=== PATIENT | female | born 1965 | race Caucasian/White ===

== ENCOUNTER 2016-09-19 09:34 | Inpatient (IN) | payer SELFPAY ==
[2016-09-19] VITALS (7 sets, daily range): BP systolic 100–126; BP diastolic 58–81; PULSE 71–89; RESP 14–18; TEMP 96.9–98.3; O2SAT 97–100
[~2016-09-19] VITALS: Ht 170.2 cm; Wt 60.0 kg
[~2016-09-19 09:34] MED LIST: FURO20TA PO; NAPR500 PO; PANT40TA3 PO
--- NOTE | 2016-09-19 11:35 | PD ---
HPI Chief Complaint: Edema Time Seen by Provider: 11:28 Travel History International Travel<30 days: No Contact w/Intl Traveler<30days: No Traveled to known affect area: No History of Present Illness HPI This is a 51-year-old female with a history of alcoholic cirrhosis per chart review. She presents for evaluation of bilateral lower extremity swelling and pain. She reports over the past 2-3 which she has had increased swelling in the lower legs, some blister formation and drainage of serous fluid. Associated tenderness, stabbing, worse with palpation. She has also noticed some mildly increased abdominal swelling over the past few months. She has had ascites in the past. She is currently on Lasix 40 mg once a day, spironolactone 100 mg once a day. She has had no fevers or chills, nausea or vomiting, diarrhea or constipation. She also notes that one week ago she fell in her bathroom and landed on her ribs. She notes left-sided lower rib cage pain which is worse with palpation. Her ecommerce project manager is Dr. Pagan. She does not currently have a primary care physician. No other complaints. [facility]LY [facility] Past Medical History Asthma: Yes Cardiovascular Problems: No Diminished Hearing: No Genitourinary: No Musculoskeletal: Yes (TRAUMA-OCTOBER 2015, RIGHT LEG/HAND NERVE DAMAGE) Neurologic: No Respiratory: Yes Immunizations Current: Yes Past Surgical History Gynecologic Surgery: Yes (Hysterectomy-2002) Hysterectomy: Yes (2003) Other Surgery: Yes (BACK SURGERY ) Social History Alcohol Use: Yes (2-3 BEERS PER DAY ) Tobacco Use: Yes (1PPD) Substance Use: No Allergies-Medications (Allergen,Severity, Reaction): Coded Allergies: Voltaren (Unverified Adverse Reaction, Severe, headache, 09/19/16) Reported Meds & Prescriptions Reported Meds & Active Scripts Active Reported Spironolactone 50 Mg Tab 100 Mg PO DAILY Folate (Folic Acid) 1 Mg Tab 1 Mg PO DAILY Baclofen 20 Mg Tab 20 Mg PO TID Trazodone (Trazodone HCl) 50 Mg Tab 25 Mg PO HS Furosemide 40 Mg Tab 40 Mg PO DAILY Pantoprazole (Pantoprazole Sodium) 40 Mg Tab 40 Mg PO DAILY Review of Systems Except as stated in HPI: all other systems reviewed are Neg Physical Exam Narrative GENERAL: Well-developed well-nourished female in no acute distress SKIN: Warm and dry. Chronic venous stasis changes noted to the lower extremities, some serous fluid drainage noted from some blister formation. Mild erythema to the left pretibial region. 2+ pitting edema bilaterally. HEAD: Atraumatic. Normocephalic. EYES: Pupils equal and round. No scleral icterus. No injection or drainage. ENT: No nasal bleeding or discharge. Mucous membranes pink and moist. NECK: Trachea midline. No JVD. CARDIOVASCULAR: Regular rate and rhythm. No murmur appreciated. RESPIRATORY: No accessory muscle use. Clear to auscultation. Breath sounds equal bilaterally. GASTROINTESTINAL: Abdomen soft, non-tender, nondistended. Hepatic and splenic margins not palpable. MUSCULOSKELETAL: No obvious deformities. Skin as noted above. Some tenderness to palpation to the anterior lower left rib cage. NEUROLOGICAL: Awake and alert. No obvious cranial nerve deficits. Motor grossly within normal limits. Normal speech. Data Data Last Documented VS Vital Signs Date Time Temp Pulse Resp B/P Pulse Ox O2 Delivery O2 Flow Rate FiO2 09/19/16 14:53 97.8 83 16 106/58 100 Room Air Orders Complete Blood Count With Diff (09/19/16 10:06) Comprehensive Metabolic Panel (09/19/16 10:06) Chest, Single Ap (09/19/16 ) Tramadol (Ultram) (09/19/16 12:00) Prothrombin Time / Inr (Pt) (09/19/16 12:25) Act Partial Throm Time (Ptt) (09/19/16 12:25) Type And Screen (09/19/16 12:25) Red Blood Cells (Rbc) (09/19/16 12:25) Blood Product Administration .UPON TRANSFUSION (09/19/16 12:25) Ct Abd/Pel W Iv Contrast(Rout) (09/19/16 12:34) Hydromorphone Pf Inj (Dilaudid Pf Inj) (09/19/16 12:45) Pantoprazole Inj (Protonix Inj) (09/19/16 12:45) Iohexol 350 Inj (Omnipaque 350 Inj) (09/19/16 13:54) Labs Laboratory Tests Test 09/19/16 09/19/16 11:50 12:35 White Blood Count 7.4 TH/MM3 Red Blood Count 3.83 MIL/MM3 Hemoglobin 6.3 GM/DL Hematocrit 22.7 % Mean Corpuscular Volume 59.2 FL Mean Corpuscular Hemoglobin 16.5 PG Mean Corpuscular Hemoglobin 28.0 % Concent Red Cell Distribution Width 24.6 % Platelet Count 265 TH/MM3 Mean Platelet Volume 8.4 FL Neutrophils (%) (Auto) 65.4 % Lymphocytes (%) (Auto) 19.7 % Monocytes (%) (Auto) 11.4 % Eosinophils (%) (Auto) 2.0 % Basophils (%) (Auto) 1.5 % Neutrophils # (Auto) 4.9 TH/MM3 Lymphocytes # (Auto) 1.5 TH/MM3 Monocytes # (Auto) 0.8 TH/MM3 Eosinophils # (Auto) 0.1 TH/MM3 Basophils # (Auto) 0.1 TH/MM3 CBC Comment AUTO DIFF Differential Comment AUTO DIFF CONFIRMED Platelet Estimate NORMAL Platelet Morphology Comment ENLARGED Ovalocytes 1+ Acanthocytes OCC Keratocytes OCC Sodium Level 137 MEQ/L Potassium Level 4.0 MEQ/L Chloride Level 104 MEQ/L Carbon Dioxide Level 26.1 MEQ/L Anion Gap 7 MEQ/L Blood Urea Nitrogen 4 MG/DL Creatinine 0.48 MG/DL Estimat Glomerular Filtration 137 ML/MIN Rate Random Glucose 93 MG/DL Calcium Level 8.2 MG/DL Total Bilirubin 0.5 MG/DL Aspartate Amino Transf 17 U/L (AST/SGOT) Alanine Aminotransferase 13 U/L (ALT/SGPT) Alkaline Phosphatase 128 U/L Total Protein 6.9 GM/DL Albumin 3.0 GM/DL Prothrombin Time 12.7 SEC Prothromb Time International 1.1 RATIO Ratio Activated Partial 24.0 SEC Thromboplast Time Blood Type O POSITIVE Antibody Screen NEGATIVE Crossmatch Leukocyte-Reduced Red Blood Cells Blood Bank Comment [facility] Medical Decision Making Medical Screen Exam Complete: Yes Emergency Medical Condition: Yes Medical Record Reviewed: Yes Interpretation(s) CBC hemoglobin 6.3 CMP albumin 3.0 otherwise unremarkable Differential Diagnosis Venous stasis dermatitis, cellulitis, dependent edema, ascites, DVT Narrative Course 51-year-old female presents primarily for examination of bilateral lower extremity pain, skin changes, blister formation with serous drainage. Patient lab work was sent, she also endorses some left lower rib cage pain from a mechanical fall 1 week ago. Chest x-ray was ordered and was negative. Surprisingly her hemoglobin is 6.3 with an MCV of 59, she denies any melena/ bright red blood per rectum/hematemesis/hematochezia. She denies any acute bleeding that she is aware of. Given the history of recent trauma, CT of the abdomen and pelvis is been ordered to assess for splenic laceration. It appears that she has had an endoscopy in December 2015 revealing ulcers. A rectal examination was performed and is Hemoccult positive. The patient will be given 2 units packed red blood cells. The patient will be admitted for further evaluation. HemaPrompt Point of Care Internal Pos. & Neg. Controls: Passed Diagnosis Primary Impression: GI bleed Qualified Code: K92.2 - Gastrointestinal hemorrhage, unspecified gastrointestinal hemorrhage type Additional Impression: Anemia Qualified Code: D64.9 - Anemia, unspecified type Admitting Information Admitting Physician Requests: Admit Yuri Carolina Sep 19, 2016 11:35
[2016-09-19] MEDS ORDERED: traMADol HCL 50 MG TAB PO ONE (12:00)
--- NOTE | 2016-09-19 12:11 | RADRPT ---
EXAM DATE/TIME: 09/19/2016 11:46 [facility] COMPARISON: CHEST SINGLE AP, January 31, 2016, 11:43. INDICATIONS : Patient fell this morning and hurt her left ribs when she fell. MEDICAL HISTORY : None. SURGICAL HISTORY : None. ENCOUNTER: Initial ACUITY: 1 day PAIN SCORE: 8/10 LOCATION: Left Ribs. FINDINGS: Single AP view of the chest. The lungs are clear. Cardiomediastinal silhouette within normal limits. No evidence of pleural effusion or pneumothorax. CONCLUSION: No acute cardiopulmonary disease identified. Alejandro Gonzalez MD on September 19, 2016 at 12:09 Board Certified Radiologist. This report was verified electronically.
[2016-09-19] MEDS ORDERED: TRAZ50TA12 PO (12:15)
[2016-09-19] MEDS ORDERED: BACL20TA PO (12:15)
[2016-09-19] MEDS ORDERED: FOLI1TAB4 PO (12:15)
[2016-09-19] MEDS ORDERED: FURO40TA PO (12:15)
[2016-09-19] MEDS ORDERED: SPIR50TA PO (12:15)
[2016-09-19 12:22] LABS: ALT (GPT) 13 U/L (10-53); ANION GAP 7 MEQ/L (5-15); AST (GOT) 17 U/L (15-37); BICARBONATE 26.1 MEQ/L (21.0-32.0); BLOOD UREA NITROGEN 4 MG/DL (7-18); CHLORIDE 104 MEQ/L (98-107); GLOMERULAR FILTRATION RATE 137 ML/MIN (>89); SODIUM (NA) 137 MEQ/L (136-145)
[2016-09-19 12:23] LABS: AUTOMATED NEUTROPHIL # 4.9 TH/MM3 (1.8-7.7); BASOPHIL # 0.1 TH/MM3 (0-0.2); BASOPHIL % 1.5 % (0.0-2.0); EOSINOPHIL # 0.1 TH/MM3 (0-0.4); HEMATOCRIT 22.7 % (35.0-46.0); LYMPH % 19.7 % (9.0-44.0); LYMPHOCYTE # 1.5 TH/MM3 (1.0-4.8); MEAN CELL VOLUME 59.2 FL (80.0-100.0); MEAN CORPUSCULAR HEMOGLOBIN 16.5 PG (27.0-34.0); MONO % 11.4 % (0.0-8.0); NEUT % 65.4 % (16.0-70.0); PLATELET COUNT 265 TH/MM3 (150-450); RED BLOOD COUNT 3.83 MIL/MM3 (4.00-5.30); RED CELL DISTRIBUTION WIDTH 24.6 % (11.6-17.2); WHITE BLOOD COUNT 7.4 TH/MM3 (4.0-11.0)
[2016-09-19 12:24] LABS: ALKALINE PHOSPHATASE 128 U/L (45-117); HEMO FLAGS AUTO DIFF; TOTAL BILIRUBIN ADULT 0.5 MG/DL (0.2-1.0)
--- NOTE | 2016-09-19 12:42 | PD ---
Data Data Last Documented VS Vital Signs Date Time Temp Pulse Resp B/P Pulse Ox O2 Delivery O2 Flow Rate FiO2 09/19/16 13:54 89 16 117/73 100 Room Air 09/19/16 09:35 98.2 Orders Complete Blood Count With Diff (09/19/16 10:06) Comprehensive Metabolic Panel (09/19/16 10:06) Chest, Single Ap (09/19/16 ) Tramadol (Ultram) (09/19/16 12:00) Prothrombin Time / Inr (Pt) (09/19/16 12:25) Act Partial Throm Time (Ptt) (09/19/16 12:25) Type And Screen (09/19/16 12:25) Red Blood Cells (Rbc) (09/19/16 12:25) Blood Product Administration .UPON TRANSFUSION (09/19/16 12:25) Ct Abd/Pel W Iv Contrast(Rout) (09/19/16 12:34) Hydromorphone Pf Inj (Dilaudid Pf Inj) (09/19/16 12:45) Pantoprazole Inj (Protonix Inj) (09/19/16 12:45) Iohexol 350 Inj (Omnipaque 350 Inj) (09/19/16 13:54) Labs Laboratory Tests Test 09/19/16 09/19/16 11:50 12:35 White Blood Count 7.4 TH/MM3 Red Blood Count 3.83 MIL/MM3 Hemoglobin 6.3 GM/DL Hematocrit 22.7 % Mean Corpuscular Volume 59.2 FL Mean Corpuscular Hemoglobin 16.5 PG Mean Corpuscular Hemoglobin 28.0 % Concent Red Cell Distribution Width 24.6 % Platelet Count 265 TH/MM3 Mean Platelet Volume 8.4 FL Neutrophils (%) (Auto) 65.4 % Lymphocytes (%) (Auto) 19.7 % Monocytes (%) (Auto) 11.4 % Eosinophils (%) (Auto) 2.0 % Basophils (%) (Auto) 1.5 % Neutrophils # (Auto) 4.9 TH/MM3 Lymphocytes # (Auto) 1.5 TH/MM3 Monocytes # (Auto) 0.8 TH/MM3 Eosinophils # (Auto) 0.1 TH/MM3 Basophils # (Auto) 0.1 TH/MM3 CBC Comment AUTO DIFF Differential Comment AUTO DIFF CONFIRMED Platelet Estimate NORMAL Platelet Morphology Comment ENLARGED Ovalocytes 1+ Acanthocytes OCC Keratocytes OCC Sodium Level 137 MEQ/L Potassium Level 4.0 MEQ/L Chloride Level 104 MEQ/L Carbon Dioxide Level 26.1 MEQ/L Anion Gap 7 MEQ/L Blood Urea Nitrogen 4 MG/DL Creatinine 0.48 MG/DL Estimat Glomerular Filtration 137 ML/MIN Rate Random Glucose 93 MG/DL Calcium Level 8.2 MG/DL Total Bilirubin 0.5 MG/DL Aspartate Amino Transf 17 U/L (AST/SGOT) Alanine Aminotransferase 13 U/L (ALT/SGPT) Alkaline Phosphatase 128 U/L Total Protein 6.9 GM/DL Albumin 3.0 GM/DL Prothrombin Time 12.7 SEC Prothromb Time International 1.1 RATIO Ratio Activated Partial 24.0 SEC Thromboplast Time Blood Type O POSITIVE Antibody Screen NEGATIVE Crossmatch Leukocyte-Reduced Red Blood Cells Blood Bank Comment MDM Medical Record Reviewed: Yes Supervised Visit with CHARISMA: Yes Differential Diagnosis I, Dr. Vanegas, have reviewed the advance practice practioner's documentation and am in agreement, met with the patient face to face, made the diagnosis, and the medical decision making was done by me. *My assessment and Findings: 51-year-old alcoholic female with history of cirrhosis here with complaint of bilateral lower extremity swelling, blister formation and fluid drainage. This is chronic, but increased over the course the last several months. She also notes some abdominal distention and slight pain over the left lower rib cage since falling and hitting the chest wall approximately 1.5 weeks ago. Patient states she takes Lasix and spironolactone and has been compliant with this. She does not have any pain in the abdomen on palpation. No ecchymosis. Bilateral lower extremities have chronic venous stasis type changes with mild cellulitic component on the left greater than the right. Differential includes chronic pain, cellulitis, less likely DVT. Rib fracture, ascites. Laboratory workup notable for hemoglobin of 6.3. Most recently in January of last year this was 13.2. Patient denies any recent history of GI bleeding, states she was hospitalized last December and per chart review had an EGD with ulcer. With patient's recent history of trauma to the abdomen for possible splenic laceration or retroperitoneal hematoma and therefore will obtain CT imaging to evaluate for same. Regardless patient will need blood transfusion and admission for further management. She was transfused with 2 units packed red blood cells. Guaiac was positive. CT scan was negative other than cirrhosis, caput [place]. Critical Care Narrative Aggregate critical care time was 35 minutes. Time to perform other separately billable procedures was not included in the critical care time. My time did not include minutes spent treating any other patients simultaneously or on activities that did not directly contribute to the patient's treatment. The services I provided to this patient were to treat and/or prevent clinically significant deterioration that could result in: Cardiopulmonary decompensation, hemorrhage, , disability I provided critical care services requiring my management, as noted below: Chart data review, documentation time, medication orders and management, vital sign assessments/reviewing monitor data, ordering and reviewing lab tests, ordering and interpreting/reviewing x-rays and diagnostic studies, care of the patient and discussion of the patient with the admitting physicians. Janice Vanegas MD Sep 19, 2016 12:42
[2016-09-19] MEDS ORDERED: PANTOPRAZOLE SODIUM 40 MG VIAL IVP ONE (12:45)
[2016-09-19] MEDS ORDERED: HYDROmorphone HCL PF 1 MG/ML VIAL IV PUSH ONE (12:45)
[2016-09-19 13:01] LABS: ACANTHOCYTES OCC (NORMAL); KERATOCYTES OCC (NORMAL); OVALOCYTES 1+ (NORMAL); PLATELET ESTIMATE SMEAR NORMAL (NORMAL); PLATELET MORPHOLOGY ENLARGED (NORMAL); SCAN/DIFF AUTO DIFF CONFIRMED
[2016-09-19 13:11] LABS: INTERNATIONAL NORMALIZED RATIO 1.1 RATIO; PROTHROMBIN TIME - PATIENT 12.7 SEC (9.8-11.6)
[2016-09-19] MEDS ORDERED: IOHEXOL 350 MG/ML 10 ML VIAL (for RAD DIAG) IV ONE (13:54)
--- NOTE | 2016-09-19 14:37 | RADRPT ---
EXAM DATE/TIME: 09/19/2016 13:32 [facility] COMPARISON: CT ABDOMEN & PELVIS W/O CONTRAST, January 12, 2016, 11:39. CT ABDOMEN & PELVIS W CONTRAST, November 25 6, 14:41. INDICATIONS : Left upper quadrant pain. Abdominal distention. IV CONTRAST: 75 cc Omnipaque 350 (iohexol) IV ORAL CONTRAST: No oral contrast ingested. RADIATION DOSE: 9.96 CTDIvol (mGy) MEDICAL HISTORY : None SURGICAL HISTORY : Hysterectomy. ENCOUNTER: Initial ACUITY: 1 week PAIN SCALE: 7/10 LOCATION: Left upper quadrant TECHNIQUE: Volumetric scanning of the abdomen and pelvis was performed. Using automated exposure control and ad justment of the mA and/or kV according to patient size, radiation dose was kept as low as reasonably achievable to obtain optimal diagnostic quality images. FINDINGS: LOWER LUNGS: The visualized lower lungs are clear. LIVER: The liver is heterogeneous without a focal mass. No ductal dilatation. Lobulation to the contour. Por nigel vein is patent. There is recannulization of the periumbilical vein. Small lymph nodes are seen al amish the ricardo hepatis. These are stable. The largest measures 1.4 x 1.0 cm. Small noncalcified gallst ones versus sludge layering within an otherwise normal-appearing gallbladder. SPLEEN: Normal size without lesion. PANCREAS: Within normal limits. KIDNEYS: Normal in size and shape. There is no mass, stone or hydronephrosis. ADRENAL GLANDS: Within normal limits. VASCULAR: There is no aortic aneurysm. BOWEL/MESENTERY: The stomach, small bowel, and colon demonstrate no acute abnormality. Chronic stranding of the fat ad jacent to the posterior margin of the colon felt to be scar formation. No acute inflammation. There is no free intraperitoneal air. A trace amount of ascitic fluid. ABDOMINAL WALL: Caput medusa seen surrounding the umbilicus. No hernia appreciated. RETROPERITONEUM: There is no lymphadenopathy. BLADDER: No wall thickening or mass. REPRODUCTIVE: Within normal limits. INGUINAL: There is no lymphadenopathy or hernia. MUSCULOSKELETAL: Within normal limits for patient age. CONCLUSION: 1. Cirrhosis. 2. Trace amount of ascites. 3. Small noncalcified gallstones versus sludge within an otherwise normal-appearing gallbladder. 4. Caput medusa. Brent Sheridan Jr., MD on September 19, 2016 at 14:26 Board Certified Radiologist. This report was verified electronically.
[2016-09-19] MEDS ORDERED: NALOXONE HCL 0.4 MG/ML AMP IV PRN (16:00)
[2016-09-19] MEDS ORDERED: traMADol HCL 50 MG TAB PO PRN (16:00)
[2016-09-19] MEDS ORDERED: SODIUM CHLORIDE 0.9% FLUSH 10 ML FLUSH IV FLUSH PRN (16:00)
[2016-09-19] MEDS ORDERED: PILL SPLITTER OTHER PRN (16:00)
[2016-09-19] MEDS ORDERED: ACETAMINOPHEN 325 MG TAB PO PRN (16:00)
[2016-09-19] MEDS ORDERED: ONDANSETRON HCL 4 MG/2 ML VIAL IV PRN (16:00)
--- NOTE | 2016-09-19 16:07 | HHI.HP ---
[facility] Service [facility] Primary Care Physician No Primary Care Physician Admission Diagnosis GI bleed, anemia Diagnoses: Chief Complaint: Lower extremity and abdominal pain Travel History International Travel<30 Days: No Contact w/Intl Traveler <30 Da: No Traveled to Known Affected Are: No History of Present Illness 51-year-old female with past mental history of alcoholic cirrhosis, insomnia, PUD, asthma who presented with lower extremity pain and abdominal discomfort. The patient's chief complaint today was pain in her bilateral lower extremities. She's been having painful dry skin for the past 2 or 3 weeks. She 's been trying to put lotion and Neosporin on it with no improvement. She states occasionally her legs weep and drain, not currently. She has been compliant with her GI medications including diuretics. Her guest relation officer is Dr. Pagan. She states she's been having some abdominal swelling, has had paracentesis in the past due to ascites. However, she has not noticed any dark or bloody stools. She denies any nausea, vomiting, chest pain, shortness breath , lightheadedness, dizziness, weakness, fatigue. She does continue to have an occasional alcoholic drink. The patient was noted to be anemic in the ED and found to have Hemoccult-positive stool. Review of Systems Except as stated in HPI: all other systems reviewed are Neg Past Family Social History Past Medical History Asthma Ascites/cirrhosis Insomnia Peptic ulcer disease and portal gastropathy Past Surgical History Back surgery Hysterectomy EGD Paracentesis Reported Medications Spironolactone 50 Mg Tab 100 Mg PO DAILY Folate (Folic Acid) 1 Mg Tab 1 Mg PO DAILY Baclofen 20 Mg Tab 20 Mg PO TID Trazodone (Trazodone HCl) 50 Mg Tab 25 Mg PO HS Furosemide 40 Mg Tab 40 Mg PO DAILY Pantoprazole (Pantoprazole Sodium) 40 Mg Tab 40 Mg PO DAILY Allergies: Coded Allergies: Voltaren (Unverified Adverse Reaction, Severe, headache, 09/19/16) Active Ordered Medications Spironolactone 50 Mg Tab 100 Mg PO DAILY Folate (Folic Acid) 1 Mg Tab 1 Mg PO DAILY Baclofen 20 Mg Tab 20 Mg PO TID Trazodone (Trazodone HCl) 50 Mg Tab 25 Mg PO HS Furosemide 40 Mg Tab 40 Mg PO DAILY Pantoprazole (Pantoprazole Sodium) 40 Mg Tab 40 Mg PO DAILY Family History Family history of heart disease Social History Smokes one pack per day Had a glass of wine last night, last drink was a few days ago prior to that Lives at home with her Physical Exam Vital Signs Vital Signs Date Time Temp Pulse Resp B/P Pulse Ox O2 Delivery O2 Flow Rate FiO2 09/19/16 15:03 97.8 82 16 104/59 100 Room Air 09/19/16 14:53 97.8 83 16 106/58 100 Room Air 09/19/16 14:42 97.6 84 16 100/60 99 Room Air 09/19/16 13:54 89 16 117/73 100 Room Air 09/19/16 11:50 Room Air 09/19/16 09:35 98.2 89 16 126/58 97 Physical Exam GENERAL: Well-developed well-nourished. In no acute distress. SKIN: Warm and dry. Bilateral lower extremities with venous stasis changes with dry cracked skin, left worse than right; not really any erythema, warmth, or drainage. HEENT: Normocephalic. Pupils equal and round. Mucous membranes pink and moist. CARDIOVASCULAR: Regular rate and rhythm. No murmur appreciated. RESPIRATORY: No accessory muscle use. Clear to auscultation. Breath sounds equal bilaterally. GASTROINTESTINAL: Abdomen soft, moderate epigastric TTP, mildly distended. Bowel sounds x4. MUSCULOSKELETAL: No obvious deformities. No clubbing or cyanosis. 2+ bilateral lower extremity pitting edema. NEUROLOGICAL: Awake and alert. No focal neurological deficits. Moves upper and lower extremities spontaneously. Normal speech. PSYCHIATRIC: Appropriate mood and affect; insight and judgment normal. Laboratory Laboratory Tests Test 09/19/16 09/19/16 11:50 12:35 White Blood Count 7.4 Red Blood Count 3.83 Hemoglobin 6.3 Hematocrit 22.7 Mean Corpuscular Volume 59.2 Mean Corpuscular Hemoglobin 16.5 Mean Corpuscular Hemoglobin 28.0 Concent Red Cell Distribution Width 24.6 Platelet Count 265 Mean Platelet Volume 8.4 Neutrophils (%) (Auto) 65.4 Lymphocytes (%) (Auto) 19.7 Monocytes (%) (Auto) 11.4 Eosinophils (%) (Auto) 2.0 Basophils (%) (Auto) 1.5 Neutrophils # (Auto) 4.9 Lymphocytes # (Auto) 1.5 Monocytes # (Auto) 0.8 Eosinophils # (Auto) 0.1 Basophils # (Auto) 0.1 CBC Comment AUTO DIFF Differential Comment AUTO DIFF CONFIRMED Platelet Estimate NORMAL Platelet Morphology Comment ENLARGED Ovalocytes 1+ Acanthocytes OCC Keratocytes OCC Sodium Level 137 Potassium Level 4.0 Chloride Level 104 Carbon Dioxide Level 26.1 Anion Gap 7 Blood Urea Nitrogen 4 Creatinine 0.48 Estimat Glomerular Filtration 137 Rate Random Glucose 93 Calcium Level 8.2 Total Bilirubin 0.5 Aspartate Amino Transf 17 (AST/SGOT) Alanine Aminotransferase 13 (ALT/SGPT) Alkaline Phosphatase 128 Total Protein 6.9 Albumin 3.0 Prothrombin Time 12.7 Prothromb Time International 1.1 Ratio Activated Partial 24.0 Thromboplast Time Blood Type O POSITIVE Antibody Screen NEGATIVE Crossmatch Leukocyte-Reduced Red Blood Cells Blood Bank Comment Result Diagram: 09/19/16 1150 09/19/16 1150 Imaging Last Impressions Abdomen/Pelvis CT 09/19/16 1234 Signed Impressions: Service Date/Time: Monday, September 19, 2016 13:32 - CONCLUSION: 1. Cirrhosis. 2. Trace amount of ascites. 3. Small noncalcified gallstones versus sludge within an otherwise normal-appearing gallbladder. 4. Caput medusa. Brent Sheridan Jr., MD Chest X-Ray 09/19/16 0000 Signed Impressions: Service Date/Time: Monday, September 19, 2016 11:46 - CONCLUSION: No acute cardiopulmonary disease identified. Alejandro Gonzalez MD Assessment and Plan Assessment and Plan 51-year-old female with past mental history of alcoholic cirrhosis, insomnia, PUD, asthma who presented with lower extremity pain and abdominal discomfort who was admitted for anemia and GI bleeding Acute microcytic blood loss anemia with suspected GI bleeding: Hemoglobin 6.3, previously 13.2 on 01/31/16. Hemoccult positive in the ED. Currently receiving blood transfusion in the ED. Patient does have a past history of PUD, portal gastropathy, cirrhosis. Monitor CBC/H&H. Consult gastroenterology. IV Protonix. IVF. Clear liquids. Abdominal pain: Suspect secondary to PUD as above. Abdominal CT showed cirrhosis, trace ascites, noncalcified gallstones vs sludge, caput medusa. Pain control with oral and intravenous narcotics as needed. Venous stasis with xerotic dermatitis: Lac-Hydrin cream. Consult guitar player. Tobacco abuse: Counseled on cessation. Nicotine patch. Alcoholic cirrhosis: Continue home folic acid. Thiamine. Counseled strongly on abstinence from alcohol. Continue Lasix and Aldactone. Other chronic medical conditions are stable at this time and will continue home medications as indicated. DVT prophylaxis: No SCDs at this time with Written by Satinder Grider, acting as scribe for Dr. Monroy on 09/19/16 at 16:06. All or portions of this note were transcribed by orville WHITAKER. I, Dr. Rina Monroy personally performed the history, physical exam, and medical decision making; and confirmed the accuracy of the information in the transcribed note. Authenticated by Dr. Rina Monroy on 09/19/16 at 16:06. Discussed Condition With Patient with at bedside Satinder Grider Sep 19, 2016 16:07 Rina Monroy MD Sep 19, 2016 17:09
[2016-09-19] MEDS: ACETAMINOPHEN/HYDROcodone 325 MG/7.5 MG TAB PO PRN ×2 (16:15→22:41)
[2016-09-19] MEDS: NICOTINE 7 MG/24 HR PATCH T-DERMAL SCH (17:09)
[2016-09-19] MEDS: THIAMINE INJ 100 MG in SODIUM CHLORIDE 0.9% INJ 100 ML IV SCH (18:30)
[2016-09-19] MEDS: BACLOFEN 20 MG TAB PO SCH (20:19)
[2016-09-19] MEDS: SODIUM CHLORIDE 0.9% FLUSH 10 ML FLUSH IV FLUSH SCH (20:52)
[2016-09-19] MEDS: PANTOPRAZOLE SODIUM 40 MG VIAL IV SCH (20:52)
[2016-09-19] MEDS: MORPHINE SULFATE 4 MG/ML INJ IV PRN (20:53)
[2016-09-19] MEDS: traZODone HCL 50 MG TAB PO SCH (22:41)
[2016-09-19] MEDS: LACTIC ACID (AMMONIUM LACTATE) 12% LOTION 225 GM BTL TOPICAL SCH (23:28)
[2016-09-19 23:47] LABS: HEMATOCRIT 27.1 % (35.0-46.0)
[2016-09-19 23:52] LABS: REVIEW FLAG FINAL
[2016-09-20] VITALS (7 sets, daily range): BP systolic 101–117; BP diastolic 63–82; PULSE 74–88; RESP 17–20; TEMP 95.8–97.7; O2SAT 96–100
[2016-09-20] MEDS: MORPHINE SULFATE 4 MG/ML INJ IV PRN ×6 (00:11→21:35)
[2016-09-20] MEDS: ACETAMINOPHEN/HYDROcodone 325 MG/7.5 MG TAB PO PRN ×5 (03:15→20:38)
[2016-09-20 06:37] LABS: HEMATOCRIT 27.4 % (35.0-46.0)
[2016-09-20 06:41] LABS: REVIEW FLAG FINAL
[2016-09-20 06:53] LABS: ALKALINE PHOSPHATASE 105 U/L (45-117); ALT (GPT) 9 U/L (10-53); ANION GAP 7 MEQ/L (5-15); AST (GOT) 13 U/L (15-37); BICARBONATE 24.8 MEQ/L (21.0-32.0); BLOOD UREA NITROGEN 4 MG/DL (7-18); CHLORIDE 110 MEQ/L (98-107); GLOMERULAR FILTRATION RATE 148 ML/MIN (>89); POTASSIUM 3.8 MEQ/L (3.5-5.1); SODIUM (NA) 142 MEQ/L (136-145); TOTAL BILIRUBIN ADULT 1.1 MG/DL (0.2-1.0)
[2016-09-20 07:01] LABS: AUTOMATED NEUTROPHIL # 2.8 TH/MM3 (1.8-7.7); BASOPHIL # 0.1 TH/MM3 (0-0.2); BASOPHIL % 2.2 % (0.0-2.0); EOSINOPHIL # 0.2 TH/MM3 (0-0.4); EOSINOPHIL % 4.1 % (0.0-4.0); HEMATOCRIT 27.1 % (35.0-46.0); LYMPHOCYTE # 1.7 TH/MM3 (1.0-4.8); MEAN CELL VOLUME 64.4 FL (80.0-100.0); MEAN CORPUSCULAR HEMOGLOBIN 19.4 PG (27.0-34.0); MEAN CORPUSCULAR HGB CONC 30.1 % (32.0-36.0); NEUT % 50.7 % (16.0-70.0); PLATELET COUNT 236 TH/MM3 (150-450); RED BLOOD COUNT 4.22 MIL/MM3 (4.00-5.30); WHITE BLOOD COUNT 5.5 TH/MM3 (4.0-11.0)
[2016-09-20 07:06] LABS: HEMO FLAGS AUTO DIFF
--- NOTE | 2016-09-20 07:40 | HHI.PR ---
Subjective Remarks Patient says she feels tired. No BM since yesterday. No vomiting. Nausea improved. Denies fevers or chills. No seizures/ tremors. Objective Vitals Vital Signs Date Time Temp Pulse Resp B/P Pulse Ox O2 Delivery O2 Flow Rate FiO2 09/20/16 04:00 97.7 81 18 101/63 98 09/20/16 00:00 97.6 88 17 112/72 96 09/19/16 20:20 96.9 83 18 118/81 100 09/19/16 20:06 98.3 71 14 107/65 100 Room Air 09/19/16 15:03 97.8 82 16 104/59 100 Room Air 09/19/16 14:53 97.8 83 16 106/58 100 Room Air 09/19/16 14:42 97.6 84 16 100/60 99 Room Air 09/19/16 13:54 89 16 117/73 100 Room Air 09/19/16 11:50 Room Air 09/19/16 09:35 98.2 89 16 126/58 97 I/O 09/19/16 09/19/16 09/19/16 09/20/16 09/20/16 09/20/16 07:00 15:00 23:00 07:00 15:00 23:00 Intake Total 250 ml 480 ml Balance 250 ml 480 ml Intake Oral 480 ml Packed Cells 250 ml # Voids 1 1 Result Diagram: 09/20/16 0503 09/20/16 0503 Imaging Last Impressions Abdomen/Pelvis CT 09/19/16 1234 Signed Impressions: Service Date/Time: Monday, September 19, 2016 13:32 - CONCLUSION: 1. Cirrhosis. 2. Trace amount of ascites. 3. Small noncalcified gallstones versus sludge within an otherwise normal-appearing gallbladder. 4. Caput medusa. Brent Sheridan Jr., MD Chest X-Ray 09/19/16 0000 Signed Impressions: Service Date/Time: Monday, September 19, 2016 11:46 - CONCLUSION: No acute cardiopulmonary disease identified. Alejandro Gonzalez MD Objective Remarks GENERAL: Pleasant 51 yo F, well-developed, well-nourished. In no acute distress. SKIN: Warm and dry. Bilateral lower extremities with venous stasis changes with dry cracked skin, left worse than right; not really any erythema, warmth, or drainage. HEENT: Normocephalic. Pupils equal and round. Mucous membranes pink and moist. CARDIOVASCULAR: Regular rate and rhythm. No murmur appreciated. RESPIRATORY: No accessory muscle use. Clear to auscultation. Breath sounds equal bilaterally. GASTROINTESTINAL: Abdomen soft, moderate epigastric TTP, mildly distended. Bowel sounds x4. MUSCULOSKELETAL: No obvious deformities. No clubbing or cyanosis. 2+ bilateral lower extremity pitting edema. NEUROLOGICAL: Awake and alert. No focal neurological deficits. Moves upper and lower extremities spontaneously. Normal speech. PSYCHIATRIC: Appropriate mood and affect; insight and judgment normal. A/P Assessment and Plan 51-year-old female with past mental history of alcoholic cirrhosis, insomnia, PUD, asthma who presented with lower extremity pain and abdominal discomfort who was admitted for anemia and GI bleeding Acute microcytic blood loss anemia 2/2 GI bleeding (FOBT +): Hemoglobin 6.3, previously 13.2 on 01/31/16. Hemoccult positive in the ED. Currently receiving blood transfusion in the ED. Patient does have a past history of PUD, portal gastropathy, cirrhosis. Monitor CBC/H&H. Consult gastroenterology. IV Protonix. IVF. NPO plan for EGD 09/20/16 Abdominal pain: Suspect secondary to PUD as above. Abdominal CT showed cirrhosis, trace ascites, noncalcified gallstones vs sludge, caput medusa. Pain control with oral and intravenous narcotics as needed. Venous stasis with xerotic dermatitis: Lac-Hydrin cream. Consult physician obstetrician. Tobacco abuse: Counseled on cessation. Nicotine patch. Alcoholic cirrhosis: Continue home folic acid. Thiamine. Counseled strongly on abstinence from alcohol. Continue Lasix and Aldactone. Other chronic medical conditions are stable at this time and will continue home medications as indicated. DVT prophylaxis: No SCDs at this time with Discussed Condition With Patient, nurse Rina Monroy MD Sep 20, 2016 07:40
[2016-09-20 07:49] LABS: OVALOCYTES 1+ (NORMAL)
[2016-09-20 07:50] LABS: SCAN/DIFF AUTO DIFF CONFIRMED
[2016-09-20] MEDS: FUROSEMIDE 40 MG TAB PO SCH (08:00)
[2016-09-20] MEDS: BACLOFEN 20 MG TAB PO SCH ×3 (08:00→17:43)
[2016-09-20] MEDS: FOLIC ACID 1 MG TAB PO SCH (08:00)
[2016-09-20] MEDS: SODIUM CHLORIDE 0.9% FLUSH 10 ML FLUSH IV FLUSH SCH ×2 (08:01→20:38)
[2016-09-20] MEDS: PANTOPRAZOLE SODIUM 40 MG VIAL IV SCH ×2 (08:01→20:37)
[2016-09-20] MEDS: LACTIC ACID (AMMONIUM LACTATE) 12% LOTION 225 GM BTL TOPICAL SCH ×2 (08:04→20:39)
[2016-09-20] MEDS: NICOTINE 7 MG/24 HR PATCH T-DERMAL SCH (08:05)
--- NOTE | 2016-09-20 08:23 | PD.CONS ---
HPI History of Present Illness This is a 51 year old female with a history of alcoholic cirrhosis of the liver , ascites, esophageal stricture, esophagitis, peptic ulcer disease, portal hypertension. She came to the emergency room for evaluation of bilateral lower extremity swelling and discomfort. She reports for the past 3 weeks she's been having some mild swelling in her abdomen with a dull ache across her lower abdomen. This is intermittent and is not related to food intake. It is aggravated by moving and sometimes radiates around to her back. For the past week, she has had bilateral lower extremity swelling with blisters and clear drainage from the blisters once they rupture. She reports that these have been aching and she couldn't take it anymore and therefore came to the ER for further evaluation. She denies any heartburn, reflux, nausea, vomiting. She is not having any melena or hematochezia. She came to the ER and was noted to have severe anemia with 6.3/22.7. Her last EGD (01/01/16) with severe esophagitis , distal esophageal stricture and there was a small tear at this at this stricture from dilating it with the scope, gastropathy throughout the stomach, midsize ulcer in the antrum, duodenitis. Pathology with antral mucosa with reactive gastropathy, as may be seen with bile reflux or drug therapy, and regenerative epithelial changes. She has never had a colonoscopy. (Eunice Mccormick) PFSH Past Medical History Asthma Ascites Liver cirrhosis secondary to ETOH Esophageal stricture Insomnia Peptic ulcer disease Portal gastropathy Past Surgical History Back surgery Hysterectomy EGD Paracentesis (Eunice Mccormick) Coded Allergies: Voltaren (Unverified Adverse Reaction, Severe, headache, 09/19/16) Medications Allergies Coded Allergies Type Severity Reaction Last Updated Verified Voltaren Adverse Reaction Severe headache 09/19/16 No Active Scripts Medications Dose Route/Sig Days Date Category Spironolactone 50 Mg Tab 100 Mg PO DAILY 09/19/16 Reported Folate (Folic Acid) 1 Mg Tab 1 Mg PO DAILY 09/19/16 Reported Baclofen 20 Mg Tab 20 Mg PO TID 09/19/16 Reported Trazodone (Trazodone HCl) 50 Mg Tab 25 Mg PO HS 09/19/16 Reported Furosemide 40 Mg Tab 40 Mg PO DAILY 09/19/16 Reported Pantoprazole (Pantoprazole Sodium) 40 Mg Tab 40 Mg PO DAILY 05/24/16 Reported Family History Family history of heart disease Social History Smokes one pack per day Had a glass of wine last night, last drink was a few days ago prior to that ( Eunice Mccormick) Review of Systems Constitutional: COMPLAINS OF: Fatigue, DENIES: Fever, Chills Respiratory: DENIES: Cough Cardiovascular: COMPLAINS OF: Lower Extremity Edema (blisters to ble), DENIES : Chest pain Gastrointestinal: COMPLAINS OF: Abdominal pain, Swelling of Abdomen, DENIES: Black stools, Bloody stools, Constipation, Diarrhea, Nausea, Vomiting Musculoskeletal: COMPLAINS OF: Back pain Neurologic: DENIES: Headache Psychiatric: DENIES: Confusion (Eunice Mccormick) GI Exam Vitals I&O Vital Signs Date Time Temp Pulse Resp B/P Pulse Ox O2 Delivery O2 Flow Rate FiO2 09/20/16 04:00 97.7 81 18 101/63 98 09/20/16 00:00 97.6 88 17 112/72 96 09/19/16 20:20 96.9 83 18 118/81 100 09/19/16 20:06 98.3 71 14 107/65 100 Room Air 09/19/16 15:03 97.8 82 16 104/59 100 Room Air 09/19/16 14:53 97.8 83 16 106/58 100 Room Air 09/19/16 14:42 97.6 84 16 100/60 99 Room Air 09/19/16 13:54 89 16 117/73 100 Room Air 09/19/16 11:50 Room Air 09/19/16 09:35 98.2 89 16 126/58 97 I/O 09/19/16 09/19/16 09/19/16 09/20/16 09/20/16 09/20/16 07:00 15:00 23:00 07:00 15:00 23:00 Intake Total 250 ml 480 ml Balance 250 ml 480 ml Intake Oral 480 ml Packed Cells 250 ml # Voids 1 1 Imaging Last Impressions Abdomen/Pelvis CT 09/19/16 1234 Signed Impressions: Service Date/Time: Monday, September 19, 2016 13:32 - CONCLUSION: 1. Cirrhosis. 2. Trace amount of ascites. 3. Small noncalcified gallstones versus sludge within an otherwise normal-appearing gallbladder. 4. Caput medusa. Brent Sheridan Jr., MD Chest X-Ray 09/19/16 0000 Signed Impressions: Service Date/Time: Monday, September 19, 2016 11:46 - CONCLUSION: No acute cardiopulmonary disease identified. Alejandro Gonzalez MD Laboratory Test 09/19/16 09/19/16 09/19/16 09/20/16 11:50 12:35 23:37 05:03 White Blood Count 7.4 TH/MM3 5.5 TH/MM3 Red Blood Count 3.83 MIL/MM3 4.22 MIL/MM3 Hemoglobin 6.3 GM/DL 8.2 GM/DL 8.1 GM/DL Hematocrit 22.7 % 27.1 % 27.4 % Mean Corpuscular Volume 59.2 FL 64.4 FL Mean Corpuscular Hemoglobin 16.5 PG 19.4 PG Mean Corpuscular Hemoglobin 28.0 % 30.1 % Concent Red Cell Distribution Width 24.6 % 29.0 % Platelet Count 265 TH/MM3 236 TH/MM3 Mean Platelet Volume 8.4 FL 8.7 FL Neutrophils (%) (Auto) 65.4 % 50.7 % Lymphocytes (%) (Auto) 19.7 % 30.0 % Monocytes (%) (Auto) 11.4 % 13.0 % Eosinophils (%) (Auto) 2.0 % 4.1 % Basophils (%) (Auto) 1.5 % 2.2 % Neutrophils # (Auto) 4.9 TH/MM3 2.8 TH/MM3 Lymphocytes # (Auto) 1.5 TH/MM3 1.7 TH/MM3 Monocytes # (Auto) 0.8 TH/MM3 0.7 TH/MM3 Eosinophils # (Auto) 0.1 TH/MM3 0.2 TH/MM3 Basophils # (Auto) 0.1 TH/MM3 0.1 TH/MM3 CBC Comment AUTO DIFF AUTO DIFF Differential Comment AUTO DIFF AUTO DIFF CONFIRMED CONFIRMED Platelet Estimate NORMAL Platelet Morphology Comment ENLARGED Ovalocytes 1+ 1+ Acanthocytes OCC Keratocytes OCC Sodium Level 137 MEQ/L 142 MEQ/L Potassium Level 4.0 MEQ/L 3.8 MEQ/L Chloride Level 104 MEQ/L 110 MEQ/L Carbon Dioxide Level 26.1 MEQ/L 24.8 MEQ/L Anion Gap 7 MEQ/L 7 MEQ/L Blood Urea Nitrogen 4 MG/DL 4 MG/DL Creatinine 0.48 MG/DL 0.45 MG/DL Estimat Glomerular Filtration 137 ML/MIN 148 ML/MIN Rate Random Glucose 93 MG/DL 90 MG/DL Calcium Level 8.2 MG/DL 8.2 MG/DL Total Bilirubin 0.5 MG/DL 1.1 MG/DL Aspartate Amino Transf 17 U/L 13 U/L (AST/SGOT) Alanine Aminotransferase 13 U/L 9 U/L (ALT/SGPT) Alkaline Phosphatase 128 U/L 105 U/L Total Protein 6.9 GM/DL 6.0 GM/DL Albumin 3.0 GM/DL 2.5 GM/DL Prothrombin Time 12.7 SEC Prothromb Time International 1.1 RATIO Ratio Activated Partial 24.0 SEC Thromboplast Time Blood Type O POSITIVE Antibody Screen NEGATIVE Crossmatch Leukocyte-Reduced Red Blood Cells Blood Bank Comment Polychromasia 2.0 % Physical Examination HEENT: Normocephalic; atraumatic; no jaundice. CHEST: CTA. CARDIAC: Regular rate and rhythm with no murmur gallop or rubs. ABDOMEN: Soft, nondistended, nontender; hepatosplenomegaly; bowel sounds are present in all four quadrants. mild ascites EXTREMITIES: BLE edema. Multiple blisters to BLE SKIN: Normal; no rash; no jaundice. COMMISSIONING AGENT: No focal deficits; alert and oriented times three. (Eunice Mccormick) Assessment and Plan Plan ASSESSMENT: - Severe anemia. Pt has known liver cirrhosis, portal hypertension, PUD. However, she is not having any obvious active bleeding- denies any hematemesis, melena, vomiting. EGD (01/01/16) with severe esophagitis, distal esophageal stricture and there was a small tear at this at this stricture from dilating it with the scope, gastropathy throughout the stomach, midsize ulcer in the antrum, duodenitis. Pathology with antral mucosa with reactive gastropathy, as may be seen with bile reflux or drug therapy, and regenerative epithelial changes. She has never had a colonoscopy. HH 6.3/22.7 on admission. S/P 2 units PRBC. 8.1/ 27.4. - Ascites, BLE. Lasix, Spironolactone. - Liver cirrhosis/Portal htn secondary to ETOH use. Abdomen/Pelvis CT (09/19/16) ----> 1. Cirrhosis. 2. Trace amount of ascites. 3. Small noncalcified gallstones versus sludge within an otherwise normal-appearing gallbladder. 4. Caput medusa. T. Bili 1.1, AST 13, ALT 9, ALk PHosph 105. - Hx PUD. PPI PLAN: - Plan for egd/colonoscopy in am - Obtain consents - Light breakfast today - Clear liquids starting at lunch - NPO after MN - Golytely prep - Cont. Lasix - Cont. Spironolactone - Cont. PPI - Monitor labs - Supportive care - Complete ETOH cessation - Pt seen and examined by Dr. Campos and myself and this note is written on his behalf (Eunice Mccormick) Physician Comments patient was seen and examined agree with above continue present supportive care monitor labs Plan for an EGD and a colonoscopy tomorrow (Jose Luis Campos MD) Eunice Mccormick Sep 20, 2016 08:23 Jose Luis Campos MD Sep 20, 2016 18:42
[2016-09-20] MEDS: REMOVE OLD PATCH T-DERMAL SCH (09:00)
[2016-09-20] MEDS: SPIRONOLACTONE 50 MG TAB PO SCH (09:35)
[2016-09-20] MEDS ORDERED: PEG (High)/E-LYTE SOLN 4000 ML BTL PO ONE (16:00)
[2016-09-20 16:12] LABS: HEMATOCRIT 27.4 % (35.0-46.0)
[2016-09-20 16:20] LABS: REVIEW FLAG FINAL
[2016-09-20] MEDS: THIAMINE INJ 100 MG in SODIUM CHLORIDE 0.9% INJ 100 ML IV SCH (17:43)
[2016-09-20] MEDS: traZODone HCL 50 MG TAB PO SCH (20:37)
[2016-09-20 21:02] LABS: MEAN CORPUSCULAR HGB CONC 29.2 % (32.0-36.0)
[2016-09-21] VITALS: BP 100/67; PULSE 73; RESP 18; TEMP 97.1; O2SAT 100
[2016-09-21 00:10] LABS: HEMATOCRIT 27.1 % (35.0-46.0)
[2016-09-21 00:16] LABS: REVIEW FLAG FINAL
[2016-09-21] MEDS: ACETAMINOPHEN/HYDROcodone 325 MG/7.5 MG TAB PO PRN ×3 (01:06→11:52)
[2016-09-21] MEDS: MORPHINE SULFATE 4 MG/ML INJ IV PRN ×3 (02:05→13:05)
[2016-09-21 04:00] VITALS: BP 139/80; PULSE 88; RESP 18; TEMP 97.1; O2SAT 98
[2016-09-21 07:16] LABS: AUTOMATED NEUTROPHIL # 2.5 TH/MM3 (1.8-7.7); BASOPHIL # 0.1 TH/MM3 (0-0.2); BASOPHIL % 1.7 % (0.0-2.0); EOSINOPHIL # 0.2 TH/MM3 (0-0.4); EOSINOPHIL % 4.5 % (0.0-4.0); HEMATOCRIT 27.4 % (35.0-46.0); LYMPH % 33.9 % (9.0-44.0); LYMPHOCYTE # 1.8 TH/MM3 (1.0-4.8); MEAN CORPUSCULAR HEMOGLOBIN 18.9 PG (27.0-34.0); MONO % 12.6 % (0.0-8.0); NEUT % 47.3 % (16.0-70.0); PLATELET COUNT 196 TH/MM3 (150-450); RED BLOOD COUNT 4.22 MIL/MM3 (4.00-5.30); RED CELL DISTRIBUTION WIDTH 29.7 % (11.6-17.2); WHITE BLOOD COUNT 5.4 TH/MM3 (4.0-11.0)
--- NOTE | 2016-09-21 07:19 | HHI.PR ---
Subjective Remarks Patient in bed, say she feels much better today. Tired. No sob, chest pain, n/v/ d/c. lightheadedness. No fever or chills./ Plan for EGD colonoscopy today Objective Vitals Vital Signs Date Time Temp Pulse Resp B/P Pulse Ox O2 Delivery O2 Flow Rate FiO2 09/21/16 00:00 97.1 73 18 100/67 100 09/20/16 20:00 97.1 74 18 108/68 100 09/20/16 15:50 96.2 77 20 109/71 100 09/20/16 11:50 95.8 75 20 117/82 100 09/20/16 11:09 100 21 09/20/16 07:50 96.3 75 20 107/72 98 I/O 09/20/16 09/20/16 09/20/16 09/21/16 09/21/16 09/21/16 07:00 15:00 23:00 07:00 15:00 23:00 Intake Total 480 ml 720 ml 400 ml Output Total 300 ml Balance 480 ml 420 ml 400 ml Intake Oral 480 ml 720 ml 400 ml Output Urine Total 300 ml # Voids 1 10 1 1 # Bowel Movements 0 2 1 Result Diagram: 09/20/16 2333 09/20/16 0503 Imaging Last Impressions Abdomen/Pelvis CT 09/19/16 1234 Signed Impressions: Service Date/Time: Monday, September 19, 2016 13:32 - CONCLUSION: 1. Cirrhosis. 2. Trace amount of ascites. 3. Small noncalcified gallstones versus sludge within an otherwise normal-appearing gallbladder. 4. Caput medusa. Brent Sheridan Jr., MD Chest X-Ray 09/19/16 0000 Signed Impressions: Service Date/Time: Monday, September 19, 2016 11:46 - CONCLUSION: No acute cardiopulmonary disease identified. Alejandro Gonzalez MD Objective Remarks GENERAL: Pleasant 51 yo F, well-developed, well-nourished. In no acute distress. SKIN: Warm and dry. Bilateral lower extremities with venous stasis changes with dry cracked skin, left worse than right; not really any erythema, warmth, or drainage. HEENT: Normocephalic. Pupils equal and round. Mucous membranes pink and moist. CARDIOVASCULAR: Regular rate and rhythm. No murmur appreciated. RESPIRATORY: No accessory muscle use. Clear to auscultation. Breath sounds equal bilaterally. GASTROINTESTINAL: Abdomen soft, moderate epigastric TTP, mildly distended. Bowel sounds x4. MUSCULOSKELETAL: No obvious deformities. No clubbing or cyanosis. 2+ bilateral lower extremity pitting edema. NEUROLOGICAL: Awake and alert. No focal neurological deficits. Moves upper and lower extremities spontaneously. Normal speech. PSYCHIATRIC: Appropriate mood and affect; insight and judgment normal. A/P Assessment and Plan 51-year-old female with past mental history of alcoholic cirrhosis, insomnia, PUD, asthma who presented with lower extremity pain and abdominal discomfort who was admitted for anemia and GI bleeding Acute microcytic blood loss anemia 2/2 GI bleeding (FOBT +): Hemoglobin 6.3, previously 13.2 on 01/31/16. Hemoccult positive in the ED. Currently receiving blood transfusion in the ED. Patient does have a past history of PUD, portal gastropathy, cirrhosis. Monitor CBC/H&H. Consult gastroenterology. IV Protonix. IVF. Plan for EGD/colonoscopy 09/21/16 Class C esophagitis Erythematous gastritis Quit EtOH use. PPI To elina cee as OP with GI specialist. EGD in 3 month Abdominal pain: Suspect secondary to PUD as above. Abdominal CT showed cirrhosis, trace ascites, noncalcified gallstones vs sludge, caput medusa. Pain control with oral and intravenous narcotics as needed. Venous stasis with xerotic dermatitis: Lac-Hydrin cream. Consult planner chief. Tobacco abuse: Counseled on cessation. Nicotine patch. Alcoholic cirrhosis: Continue home folic acid. Thiamine. Counseled strongly on abstinence from alcohol. Continue Lasix and Aldactone. Other chronic medical conditions are stable at this time and will continue home medications as indicated. DVT prophylaxis: No SCDs at this time with Discussed Condition With Patient, nurse Rina Monroy MD Sep 21, 2016 07:19
[2016-09-21 07:24] LABS: BICARBONATE 26.1 MEQ/L (21.0-32.0); MAGNESIUM 1.7 MG/DL (1.5-2.5); POTASSIUM 3.5 MEQ/L (3.5-5.1)
[2016-09-21 07:36] LABS: HEMO FLAGS AUTO DIFF
[2016-09-21 07:50] VITALS: BP 107/67; PULSE 85; RESP 20; TEMP 97.2; O2SAT 98
[2016-09-21] MEDS: BACLOFEN 20 MG TAB PO SCH ×2 (08:22→11:52)
[2016-09-21] MEDS: FOLIC ACID 1 MG TAB PO SCH (08:22)
[2016-09-21] MEDS: SPIRONOLACTONE 50 MG TAB PO SCH (08:22)
[2016-09-21] MEDS: NICOTINE 7 MG/24 HR PATCH T-DERMAL SCH (08:23)
[2016-09-21] MEDS: FUROSEMIDE 40 MG TAB PO SCH (08:23)
[2016-09-21] MEDS: REMOVE OLD PATCH T-DERMAL SCH (08:23)
[2016-09-21] MEDS: PANTOPRAZOLE SODIUM 40 MG VIAL IV SCH (08:24)
[2016-09-21] MEDS: SODIUM CHLORIDE 0.9% FLUSH 10 ML FLUSH IV FLUSH SCH (09:00)
[2016-09-21 09:15] LABS: OVALOCYTES 1+ (NORMAL)
[2016-09-21 09:19] LABS: SCAN/DIFF AUTO DIFF CONFIRMED
[2016-09-21 10:32] VITALS: BP 107/67; PULSE 85; RESP 20; TEMP 97.2; O2SAT 98
[2016-09-21] MEDS ORDERED: PROPOFOL 200 MG/20 ML AMP IV ONE (10:42)
--- NOTE | 2016-09-21 11:21 | GIPROC ---
[facility] [address] [facility]. [facility], [address] EGD PROCEDURE REPORT EXAM DATE: 09/21/2016 PATIENT NAME: Mila Meza MR #: [id number] BIRTHDATE: 1965 ATTENDING: Jose Luis Campos MD ORDER #: [id number] PRINCIPAL WEB DEVELOPER: Sudhakar Lucero and Adam Deluna STATUS: inpatient INDICATIONS: The patient is a 51 yr old female here for an EGD due to anemia PROCEDURE PERFORMED: EGD w/ biopsy MEDICATIONS: None and Per Anesthesia. TOPICAL ANESTHETIC: CONSENT: The patient understands the risks and benefits of the procedure and understands that these risks include, but are not limited to: sedation, allergic reaction, infection, perforation and/or bleeding. Alternative means of evaluation and treatment include, among others: physical exam, x-rays, and/or surgical intervention. The patient elects to proceed with this endoscopic procedure. medical equipment was checked for proper function. Hand hygiene and appropriate measures for infection prevention was taken. After the risks, benefits and alternatives of the procedure were thoroughly explained, Informed consent was verified, confirmed and timeout was successfully executed by the treatment team. The patient was anesthetized with topical anesthesia and the EC-[id number] (Pedi C) endoscope was introduced through the mouth and advanced to the second portion of the duodenum. Retroflexed views revealed no abnormalities The gastroscope was then slowly withdrawn and removed. ESOPHAGUS: There was LA Class C esophagitis noted. STOMACH: There was erythematous moderate gastritis in the gastric antrum. Multiple biopsies were performed. The endoscopy was otherwise normal. ADVERSE EVENTS: There were no complications. IMPRESSIONS: 1. There was LA Class C esophagitis noted 2. There was erythematous gastritis in the gastric antrum; multiple biopsies were performed 3. Normal endoscopy otherwise 4. Retroflexed views revealed no abnormalities RECOMMENDATIONS: 1. Await biopsy results. Biopsy results will not be ready for 7-10 days. If you don't hear from us in two weeks, call our office for biopsy results. 2. Start PPI 3. Anti-reflux regimen 4. Follow-up: GI clinic 4 week(s) PATIENT CONDITION: stable DISPOSITION: Inpatient REPEAT EXAM: Return 3 months EGD Jose Luis Campos MD eSigned: Jose Luis Campos MD 09/21/2016 11:21 AM cc:
--- NOTE | 2016-09-21 11:25 | GIPROC ---
[facility] [address] [facility]. [facility], [address] COLONOSCOPY PROCEDURE REPORT EXAM DATE: 09/21/2016 PATIENT NAME: Mila Meza MR #: [id number] BIRTHDATE: 1965 ENDOSCOPIST: Jose Luis Campos MD ORDER #: [id number] CLAIMS ASSISTANT: Sudhakar Lucero and Adam Deluna STATUS: inpatient INDICATIONS: The patient is a 51 yr old female here for a colonoscopy due to anemia, non-specific PROCEDURE PERFORMED: Colonoscopy with polypectomy MEDICATIONS: None and Per Anesthesia. PREP QUALITY: poor ESTIMATED BLOOD LOSS: None CONSENT: The patient understands the risks and benefits of the procedure and understands that these risks include, but are not limited to: sedation, allergic reaction, infection, perforation and/or bleeding. Alternative means of evaluation and treatment include, among others: physical exam, x-rays, and/or surgical intervention. The patient elects to proceed with this endoscopic procedure. medical equipment was checked for proper function. Hand hygiene and appropriate measures for infection prevention was taken. After the risks, benefits and alternatives of the procedure were thoroughly explained, Informed consent was verified, confirmed and timeout was successfully executed by the treatment team. A digital exam revealed no abnormalities of the rectum The Pentax EC-[id number] endoscope was introduced through the anus and advanced to the cecum, which was identified by both the appendix and ileocecal valve. The instrument was then slowly withdrawn as the colon was fully examined. COLON FINDINGS: A medium sized sessile polyp with a mucous cap was found in the ascending colon. Flat. A polypectomy was performed with a cold snare. The resection was complete and the polyp tissue was completely retrieved. Two large semi-pedunculated polyps were found in the sigmoid colon. Adenomatous. A polypectomy was performed using snare cautery. The resection was complete and the polyp tissue was completely retrieved. The colon mucosa was otherwise normal. Retroflexed views revealed no abnormalities The scope was then completely withdrawn from the patient and the procedure terminated. PROCEDURE WITHDRAWAL TIME:22.9minutes ADVERSE EVENTS: There were no complications. IMPRESSIONS: 1. A medium sized sessile polyp was found in the ascending colon; Flat; polypectomy was performed with a cold snare 2. Two large semi-pedunculated polyps were found in the sigmoid colon; Adenomatous; polypectomy was performed using snare cautery 3. The colon mucosa was otherwise normal 4. Retroflexed views revealed no abnormalities 5. Revealed no abnormalities of the rectum RECOMMENDATIONS: 1. Await biopsy results. Biopsy results will not be ready for 7-10 days. If you don't hear from us in two weeks, call our office for results. 2. Follow-up: GI Clinic 4 week(s) 3. High fiber diet RECALL: Return 3 months Colonoscopy Jose Luis Campos MD eSigned: Jose Luis Campos MD 09/21/2016 11:25 AM cc: PATIENT NAME: Mila Meza MR#: [id number]
[2016-09-21 11:50] VITALS: BP 115/78; PULSE 74; RESP 20; TEMP 98.2; O2SAT 100
[2016-09-21] MEDS: LACTIC ACID (AMMONIUM LACTATE) 12% LOTION 225 GM BTL TOPICAL SCH (11:54)
[2016-09-21] MEDS ORDERED: PANT40TA3 PO (12:58)
[2016-09-21] MEDS ORDERED: NICO7DIS2 T-DERMAL (12:58)
--- NOTE | 2016-09-21 12:59 | HHI.DS ---
Discharge Summary Admission Date Sep 19, 2016 at 14:55 Discharge Date: Sep 21, 2016 Admitting Diagnosis GI bleed, anemia (1) Anemia ICD Code: D64.9 Diagnosis: Principal (2) GI bleed ICD Code: K92.2 Diagnosis: Secondary (3) Liver cirrhosis ICD Code: K74.60 Diagnosis: Secondary (4) Tachycardia ICD Code: R00.0 Diagnosis: Secondary (5) Hypotension ICD Code: I95.9 Diagnosis: Secondary (6) Elevated INR ICD Code: R79.1 Diagnosis: Secondary Procedures none Brief History - From Admission 51-year-old female with past mental history of alcoholic cirrhosis, insomnia, PUD, asthma who presented with lower extremity pain and abdominal discomfort. The patient's chief complaint today was pain in her bilateral lower extremities. She's been having painful dry skin for the past 2 or 3 weeks. She 's been trying to put lotion and Neosporin on it with no improvement. She states occasionally her legs weep and drain, not currently. She has been compliant with her GI medications including diuretics. Her bench repair technician is Dr. Pagan. She states she's been having some abdominal swelling, has had paracentesis in the past due to ascites. However, she has not noticed any dark or bloody stools. She denies any nausea, vomiting, chest pain, shortness breath , lightheadedness, dizziness, weakness, fatigue. She does continue to have an occasional alcoholic drink. The patient was noted to be anemic in the ED and found to have Hemoccult-positive stool. CBC/BMP: 09/21/16 0507 09/21/16 0507 Significant Findings Laboratory Tests Test 09/19/16 09/19/16 09/19/16 09/20/16 11:50 12:35 23:37 05:03 Red Blood Count 3.83 MIL/MM3 (4.00-5.30) Hemoglobin 6.3 GM/DL 8.2 GM/DL 8.1 GM/DL (11.6-15.3) (11.6-15.3) (11.6-15.3) Hematocrit 22.7 % 27.1 % 27.4 % (35.0-46.0) (35.0-46.0) (35.0-46.0) Mean Corpuscular Volume 59.2 FL 64.4 FL (80.0-100.0) (80.0-100.0) Mean Corpuscular Hemoglobin 16.5 PG 19.4 PG (27.0-34.0) (27.0-34.0) Mean Corpuscular Hemoglobin 28.0 % 30.1 % Concent (32.0-36.0) (32.0-36.0) Red Cell Distribution Width 24.6 % 29.0 % (11.6-17.2) (11.6-17.2) Monocytes (%) (Auto) 11.4 % 13.0 % (0.0-8.0) (0.0-8.0) Platelet Morphology Comment ENLARGED (NORMAL) Ovalocytes 1+ (NORMAL) 1+ (NORMAL) Acanthocytes OCC (NORMAL) Keratocytes OCC (NORMAL) Blood Urea Nitrogen 4 MG/DL (7-18) 4 MG/DL (7-18) Creatinine 0.48 MG/DL 0.45 MG/DL (0.50-1.00) (0.50-1.00) Calcium Level 8.2 MG/DL 8.2 MG/DL (8.5-10.1) (8.5-10.1) Alkaline Phosphatase 128 U/L (45-117) Albumin 3.0 GM/DL 2.5 GM/DL (3.4-5.0) (3.4-5.0) Prothrombin Time 12.7 SEC (9.8-11.6) Activated Partial 24.0 SEC Thromboplast Time (24.3-30.1) Eosinophils (%) (Auto) 4.1 % (0.0-4.0) Basophils (%) (Auto) 2.2 % (0.0-2.0) Polychromasia 2.0 % (0.0-1.9) Chloride Level 110 MEQ/L (98-107) Total Bilirubin 1.1 MG/DL (0.2-1.0) Aspartate Amino Transf 13 U/L (15-37) (AST/SGOT) Alanine Aminotransferase 9 U/L (10-53) (ALT/SGPT) Total Protein 6.0 GM/DL (6.4-8.2) Test 09/20/16 09/20/16 09/21/16 15:46 23:33 05:07 Hemoglobin 8.1 GM/DL 8.4 GM/DL 8.0 GM/DL (11.6-15.3) (11.6-15.3) (11.6-15.3) Hematocrit 27.4 % 27.1 % 27.4 % (35.0-46.0) (35.0-46.0) (35.0-46.0) Mean Corpuscular Volume 65.0 FL (80.0-100.0) Mean Corpuscular Hemoglobin 18.9 PG (27.0-34.0) Mean Corpuscular Hemoglobin 29.2 % Concent (32.0-36.0) Red Cell Distribution Width 29.7 % (11.6-17.2) Monocytes (%) (Auto) 12.6 % (0.0-8.0) Eosinophils (%) (Auto) 4.5 % (0.0-4.0) Ovalocytes 1+ (NORMAL) Chloride Level 109 MEQ/L (98-107) Blood Urea Nitrogen 3 MG/DL (7-18) Creatinine 0.39 MG/DL (0.50-1.00) Random Glucose 69 MG/DL (74-106) Calcium Level 8.3 MG/DL (8.5-10.1) Imaging Last Impressions Abdomen/Pelvis CT 09/19/16 1234 Signed Impressions: Service Date/Time: Monday, September 19, 2016 13:32 - CONCLUSION: 1. Cirrhosis. 2. Trace amount of ascites. 3. Small noncalcified gallstones versus sludge within an otherwise normal-appearing gallbladder. 4. Caput medusa. Brent Sheridan Jr., MD Chest X-Ray 09/19/16 0000 Signed Impressions: Service Date/Time: Monday, September 19, 2016 11:46 - CONCLUSION: No acute cardiopulmonary disease identified. Alejandro Gonzalez MD PE at Discharge GENERAL: Pleasant 51 yo F, well-developed, well-nourished. In no acute distress. SKIN: Warm and dry. Bilateral lower extremities with venous stasis changes with dry cracked skin, left worse than right; not really any erythema, warmth, or drainage. HEENT: Normocephalic. Pupils equal and round. Mucous membranes pink and moist. CARDIOVASCULAR: Regular rate and rhythm. No murmur appreciated. RESPIRATORY: No accessory muscle use. Clear to auscultation. Breath sounds equal bilaterally. GASTROINTESTINAL: Abdomen soft, moderate epigastric TTP, mildly distended. Bowel sounds x4. MUSCULOSKELETAL: No obvious deformities. No clubbing or cyanosis. 2+ bilateral lower extremity pitting edema. NEUROLOGICAL: Awake and alert. No focal neurological deficits. Moves upper and lower extremities spontaneously. Normal speech. PSYCHIATRIC: Appropriate mood and affect; insight and judgment normal. Hospital Course Acute microcytic blood loss anemia 2/2 GI bleeding (FOBT +): Hemoglobin 6.3, previously 13.2 on 01/31/16. Hemoccult positive in the ED. Currently receiving blood transfusion in the ED. Patient does have a past history of PUD, portal gastropathy, cirrhosis. Monitor CBC/H&H. Consult gastroenterology. IV Protonix. IVF. Plan for EGD/colonoscopy 09/21/16 EGD with : Class C esophagitis Erythematous gastritis . Biopsies obtained per GI colonoscopy with polyps, removed, biopsy pathology pending, results as OP, will review with GI as OP Quit EtOH use. PPI Diet high in fiber To elina cee as OP with GI specialist. EGD/colonoscopy in 3 month Abdominal pain: Suspect secondary to PUD as above. Abdominal CT showed cirrhosis, trace ascites, noncalcified gallstones vs sludge, caput medusa. Pain control with oral and intravenous narcotics as needed. Venous stasis with xerotic dermatitis: Lac-Hydrin cream. Consult patient svcs mgr. Tobacco abuse: Counseled on cessation. Nicotine patch. Alcoholic cirrhosis: Continue home folic acid. Thiamine. Counseled strongly on abstinence from alcohol. Continue Lasix and Aldactone. Other chronic medical conditions are stable at this time and will continue home medications as indicated. DVT prophylaxis: No SCDs at this time with Discussed Condition With Patient, nurse Improved. Discharged home in stable condition, to follow up as OP with PCP and consultants. Pt Condition on Discharge: Stable Discharge Disposition: Discharge Home Discharge Time: <= 30 minutes Discharge Instructions DIET: Follow Instructions for: Heart Healthy Diet, High Fiber Diet Activities you can perform: Regular-No Restrictions Follow up Referrals: Gastroenterology - 4 Weeks PCP Follow-up - 2-3 Days New Medications: Ferrous Sulfate (Ferrous Sulfate) 325 Mg Tab 325 MG PO DAILY Nutritional Supplement #30 Ref 0 TAB Thiamine (Thiamine) 100 Mg Tab 100 MG PO DAILY Nutritional Supplement #30 Ref 0 TAB Nicotine Patch (Nicotine Patch) 7 Mg/24 Hr Patch 1 PATCH T-DERMAL DAILY smoking cessation #30 PATCH Continued Medications: Baclofen (Baclofen) 20 Mg Tab 20 MG PO TID Muscle Spasm Ref 0 TAB Folic Acid (Folate) 1 Mg Tab 1 MG PO DAILY Nutritional Supplement #30 Ref 0 TAB (This prescription has been renewed) Furosemide (Furosemide) 40 Mg Tab 40 MG PO DAILY ascites #30 Ref 0 TAB (This prescription has been renewed) Pantoprazole (Pantoprazole) 40 Mg Tab 40 MG PO DAILY Reflux #30 Ref 0 TAB (This prescription has been renewed) Spironolactone (Spironolactone) 50 Mg Tab 100 MG PO DAILY ascites #30 Ref 0 TAB (This prescription has been renewed) Trazodone (Trazodone) 50 Mg Tab 25 MG PO HS Control Depression #30 Ref 0 TAB Rina Monroy MD Sep 21, 2016 12:59
[2016-09-21 15:50] VITALS: BP 109/74; PULSE 77; RESP 20; TEMP 97.6; O2SAT 96
[2016-09-21] MEDS ORDERED: FOLI1TAB4 PO (16:33)
[2016-09-21] MEDS ORDERED: SPIR50TA PO (16:33)
[2016-09-21] MEDS ORDERED: FURO40TA PO (16:33)
[2016-09-21] MEDS ORDERED: THIA100T PO (16:33)
[2016-09-21] MEDS ORDERED: FERR325T PO (16:38)
== END 2016-09-21 17:30 | disposition home or self-care (01) | DRG 378 ==
LOC: NEPB 09:34 → NEDA 14:55 → HOCA 21:01
PROVIDERS: ADMIT Hospitalist; ATTEND Hospitalist
PROC: 30233N1 Transfusion of Nonautologous Red Blood Cells into Peripheral Vein, Percutaneous Approach (ICD-10-PCS; 2016-09-19)
PROC: 0DB68ZX Excision of Stomach, Via Natural or Artificial Opening Endoscopic, Diagnostic (ICD-10-PCS; 2016-09-21)
PROC: 0DBK8ZX Excision of Ascending Colon, Via Natural or Artificial Opening Endoscopic, Diagnostic (ICD-10-PCS; principal; 2016-09-21 10:32)
PROC: 0DBN8ZX Excision of Sigmoid Colon, Via Natural or Artificial Opening Endoscopic, Diagnostic (ICD-10-PCS; 2016-09-21 10:32)
DX: K92.1 Melena (principal); K76.6 Portal hypertension; K70.31 Alcoholic cirrhosis of liver with ascites; D62 Acute posthemorrhagic anemia; D50.0 Iron deficiency anemia secondary to blood loss (chronic); F10.20 Alcohol dependence, uncomplicated; I87.8 Other specified disorders of veins; F17.210 Nicotine dependence, cigarettes, uncomplicated; J45.909 Unspecified asthma, uncomplicated; G47.00 Insomnia, unspecified; D12.2 Benign neoplasm of ascending colon; D12.5 Benign neoplasm of sigmoid colon; K20.9 Esophagitis, unspecified; K29.60 Other gastritis without bleeding; K21.9 Gastro-esophageal reflux disease without esophagitis; F32.9 Major depressive disorder, single episode, unspecified
CPT/HCPCS: 36430; 71010; 74177; 80048; 80053; 82378; 83735; 85014; 85018; 85025; 85610; 85730; 86850; 86900; 86901; 86920; 88305; 88312; 96374; 96375; C9113; J1170; J2270; J3411; P9016; Q9967

== ENCOUNTER 2017-01-28 23:21 | Inpatient (IN) | payer SELFPAY ==
[~2017-01-28] VITALS: Ht 170.2 cm; Wt 50.0 kg
[2017-01-28] MEDS: OCTREOTIDE INJ 500 MCG in SODIUM CHLORID 0.9% 500 ML INJ 500 ML IV SCH (00:10)
[~2017-01-28 23:21] MED LIST changes: +BACL20TA PO; +FERR325T PO; +FOLI1TAB4 PO; -FURO20TA PO; +FURO40TA PO; -NAPR500 PO; +NICO7DIS2 T-DERMAL; +SPIR50TA PO; +THIA100T PO; +TRAZ50TA12 PO
[2017-01-28 23:24] VITALS: BP 133/85; PULSE 111; RESP 22; TEMP 98.2; O2SAT 100
[2017-01-28] MEDS ORDERED: SODIUM CHLOR 0.9% 1000 ML INJ 1,000 ML IV SCH (23:25)
[2017-01-28] MEDS ORDERED: SODIUM CHLOR 0.9% 1000 ML INJ 1,000 ML IV ONE (23:30)
[2017-01-28] MEDS ORDERED: cefTRIAXone INJ 2,000 MG in SODIUM CHLORIDE 0.9% INJ 100 ML IV ONE (23:30)
[2017-01-28] MEDS: PANTOPRAZOLE INJ 80 MG in SODIUM CHLORIDE 0.9% INJ 35 ML IV ONE (23:40)
[2017-01-28] MEDS: PANTOPRAZOLE INJ 80 MG in SODIUM CHLORIDE 0.9% INJ 100 ML IV SCH (23:40)
[2017-01-28] MEDS ORDERED: HYDROmorphone HCL PF 1 MG/ML VIAL IV PUSH ONE (23:45)
[2017-01-28 23:51] VITALS: BP 142/95; PULSE 101; RESP 18; O2SAT 100
[2017-01-28 23:55] LABS: BASOPHIL % 0.4 % (0.0-2.0); HEMATOCRIT 26.2 % (35.0-46.0); HEMO FLAGS DIFF FINAL; LYMPH % 10.6 % (9.0-44.0); LYMPHOCYTE # 1.1 TH/MM3 (1.0-4.8); MEAN CELL VOLUME 84.2 FL (80.0-100.0); MEAN CORPUSCULAR HGB CONC 30.9 % (32.0-36.0); MONO % 8.3 % (0.0-8.0); NEUT % 80.7 % (16.0-70.0); PLATELET COUNT 221 TH/MM3 (150-450); RED BLOOD COUNT 3.11 MIL/MM3 (4.00-5.30); RED CELL DISTRIBUTION WIDTH 22.7 % (11.6-17.2)
[2017-01-29] VITALS (19 sets, daily range): BP systolic 113–140; BP diastolic 65–80; PULSE 84–112; RESP 16–20; TEMP 98–100.4; O2SAT 96–100
[2017-01-29] MEDS ORDERED: OXYC1TAB36 PO (00:03)
[2017-01-29 00:04] LABS: APTT (PATIENT) 24.7 SEC (24.3-30.1); INTERNATIONAL NORMALIZED RATIO 1.4 RATIO; PROTHROMBIN TIME - PATIENT 15.7 SEC (9.8-11.6)
[2017-01-29 00:14] LABS: BICARBONATE 25.4 MEQ/L (21.0-32.0); POTASSIUM 3.1 MEQ/L (3.5-5.1); TOTAL BILIRUBIN ADULT 0.7 MG/DL (0.2-1.0)
--- NOTE | 2017-01-29 00:14 | PD ---
HPI Chief Complaint: GI Complaint Time Seen by Provider: 23:25 Travel History International Travel<30 days: No Contact w/Intl Traveler<30days: No Traveled to known affect area: No History of Present Illness HPI patient is a 51-year-old female with history of alcoholic hepatic cirrhosis who presents the emergency department with GI bleed. Patient has been having epigastric abdominal discomfort 24 hours. Yesterday she had some coffee- ground stools, again today. This morning at approximately 6 AM she woke up with nausea, and had large volume coffee-ground emesis. Out the days she has had a total of 8 episodes of emesis, progressively becoming more and more bloody , bright red. She called EMS, and en route she had approximately 500 mL bloody emesis witnessed by EMS. Tachycardic in the 120s for EMS, but otherwise hemodynamically stable. She is followed by Dr. Pagan of GI, and per chart review does not have any history of esophageal varices, but does have history of esophagitis/gastritis/peptic ulcer. PFSH Past Medical History Asthma: Yes Cardiovascular Problems: No COPD: No Diminished Hearing: No GERD: No Genitourinary: No Hiatal Hernia: No Hypertension: Yes Medical other: Yes (chirrosis of the liver) Musculoskeletal: Yes (TRAUMA-OCTOBER 2015, RIGHT LEG/HAND NERVE DAMAGE) Neurologic: No Reproductive: No Respiratory: Yes Immunizations Current: Yes Sleep Apnea: No Ulcer: Yes Tetanus Vaccination: < 5 Years Influenza Vaccination: No ?: Not Past Surgical History Gynecologic Surgery: Yes (Hysterectomy-2002) Hysterectomy: Yes Other Surgery: Yes (BACK SURGERY ) Social History Alcohol Use: Yes (1 drink a day) Tobacco Use: No (just quit 2 days ago) Substance Use: No Allergies-Medications (Allergen,Severity, Reaction): Coded Allergies: Voltaren (Unverified Adverse Reaction, Severe, headache, 09/19/16) Reported Meds & Prescriptions Reported Meds & Active Scripts Active Ferrous Sulfate 325 Mg Tab 325 Mg PO DAILY Thiamine (Thiamine HCl) 100 Mg Tab 100 Mg PO DAILY Review of Systems Except as stated in HPI: all other systems reviewed are Neg Physical Exam Narrative GENERAL: Thin female in mild distress SKIN: Focused skin assessment warm/dry. HEAD: Normocephalic. EYES: No scleral icterus. No injection or drainage. ENT: Mucous membranes pink and moist. Dried blood in the oropharynx. NECK: Supple CARDIOVASCULAR: Tachycardic with heart rate in the 110s. No murmur appreciated. RESPIRATORY: No accessory muscle use. Clear to auscultation. Breath sounds equal bilaterally. GASTROINTESTINAL: Abdomen soft, epigastric abdominal tenderness to palpation without rebound or guarding, slightly distended with small fluid wave MUSCULOSKELETAL: No obvious deformities. No edema. NEUROLOGICAL: Awake and alert. Motor grossly within normal limits. Normal speech. PSYCHIATRIC: Appropriate mood and affect; insight and judgment normal. Data Data Last Documented VS Vital Signs Date Time Temp Pulse Resp B/P Pulse Ox O2 Delivery O2 Flow Rate FiO2 01/28/17 23:51 101 18 142/95 100 Room Air 01/28/17 23:24 98.2 Orders Complete Blood Count With Diff (01/28/17 23:25) Comprehensive Metabolic Panel (01/28/17 23:25) Lipase (01/28/17 23:25) Ammonia (01/28/17 23:25) Prothrombin Time / Inr (Pt) (01/28/17 23:25) Act Partial Throm Time (Ptt) (01/28/17 23:25) Alcohol (Ethanol) (01/28/17 23:25) Type And Screen (01/28/17 23:25) Ecg Monitoring (01/28/17 23:25) Iv Access Insert/Monitor (01/28/17 23:25) Oximetry (01/28/17 23:25) Oxygen Administration (01/28/17 23:25) Sodium Chlor 0.9% 1000 Ml Inj (Ns 1000 M (01/28/17 23:25) Sodium Chloride 0.9% Flush (Ns Flush) (01/28/17 23:30) Octreotide Inj (Sandostatin Inj) (01/28/17 23:30) Pantoprazole Inj (Protonix Inj) (01/28/17 23:30) Pantoprazole Inj (Protonix Inj) (01/28/17 23:30) Sodium Chlor 0.9% 1000 Ml Inj (Ns 1000 M (01/28/17 23:30) Electrocardiogram (01/28/17 23:25) Lactic Acid Sepsis Protocol (01/28/17 23:25) Blood Culture (01/28/17 23:25) Ceftriaxone Inj (Rocephin Inj) (01/28/17 23:30) Hydromorphone Pf Inj (Dilaudid Pf Inj) (01/28/17 23:45) Fibrinogen (01/28/17 23:35) Insert Ng Tube (01/29/17 00:14) Blood Product Administration .UPON TRANSFUSION (01/29/17 00:14) Consult Gastroenterology (01/29/17 ) Red Blood Cells (Rbc) (01/28/17 23:35) Consent (01/29/17 00:26) Insert Ng Tube (01/29/17 00:27) Place Ng Tube To Low Intermit (01/29/17 00:27) Ceftriaxone Inj (Rocephin Inj) (01/29/17 12:00) Hgb & Hct (01/29/17 00:29) Hgb & Hct (01/30/17 00:29) Phytonadione Inj (Vitamin K Inj) (01/29/17 00:30) ^ Other Nursing Orders (01/29/17 00:31) (Hub Use Only)Inp Phy Cons/Ref (01/29/17 ) Ct Abd/Pel W Iv Contrast(Rout) (01/29/17 ) Ondansetron Inj (Zofran Inj) (01/29/17 00:45) Labs Laboratory Tests Test 01/28/17 23:35 White Blood Count 10.0 TH/MM3 Red Blood Count 3.11 MIL/MM3 Hemoglobin 8.1 GM/DL Hematocrit 26.2 % Mean Corpuscular Volume 84.2 FL Mean Corpuscular Hemoglobin 26.0 PG Mean Corpuscular Hemoglobin 30.9 % Concent Red Cell Distribution Width 22.7 % Platelet Count 221 TH/MM3 Mean Platelet Volume 7.5 FL Neutrophils (%) (Auto) 80.7 % Lymphocytes (%) (Auto) 10.6 % Monocytes (%) (Auto) 8.3 % Eosinophils (%) (Auto) 0.0 % Basophils (%) (Auto) 0.4 % Neutrophils # (Auto) 8.0 TH/MM3 Lymphocytes # (Auto) 1.1 TH/MM3 Monocytes # (Auto) 0.8 TH/MM3 Eosinophils # (Auto) 0.0 TH/MM3 Basophils # (Auto) 0.0 TH/MM3 CBC Comment DIFF FINAL Differential Comment Prothrombin Time 15.7 SEC Prothromb Time International 1.4 RATIO Ratio Activated Partial 24.7 SEC Thromboplast Time Fibrinogen 129 mg/dL Sodium Level 148 MEQ/L Potassium Level 3.1 MEQ/L Chloride Level 111 MEQ/L Carbon Dioxide Level 25.4 MEQ/L Anion Gap 12 MEQ/L Blood Urea Nitrogen 9 MG/DL Creatinine 0.45 MG/DL Estimat Glomerular Filtration 148 ML/MIN Rate Random Glucose 113 MG/DL Lactic Acid Level 5.9 mmol/L Calcium Level 6.4 MG/DL Protein Corrected Calcium 7.4 MG/DL Total Bilirubin 0.7 MG/DL Aspartate Amino Transf 50 U/L (AST/SGOT) Alanine Aminotransferase 21 U/L (ALT/SGPT) Alkaline Phosphatase 145 U/L Ammonia 41 MCMOL/L Total Protein 5.0 GM/DL Albumin 2.1 GM/DL Lipase 71 U/L Ethyl Alcohol Level 28 MG/DL Blood Type O POSITIVE Antibody Screen NEGATIVE Crossmatch Leukocyte-Reduced Red Blood Cells Blood Bank Comment MDM Medical Decision Making Medical Screen Exam Complete: Yes Emergency Medical Condition: Yes Medical Record Reviewed: Yes Differential Diagnosis 51-year-old female with history of alcoholic cirrhosis, portal hypertension and previous GI bleed here with upper GI bleed, 18 hours of emesis initially coffee ground and now bright red. Differential includes peptic ulcer, esophagitis, gastritis, variceal bleed, hemorrhagic shock, portal hypertension. Narrative Course Patient met by myself upon emergency department arrival, IV established and blood obtained. Given 2 L normal saline bolus, IV PPI bolus and drip, octreotide, 2 g Rocephin. Given Zofran and Dilaudid for symptom control. Twelve-lead EKG shows sinus tachycardia, rate [address] or T-wave abnormalities and normal intervals. CBC, CMP, lipase, ammonia, blood alcohol level, coags, fibrinogen, lactic acid and blood cultures obtained and notable for hemoglobin 8.1, INR 1.4, fibrinogen 129, ammonia 41. Potassium 3.1, replaced IV. Calcium 7.4, replaced IV. Lactate 5.9. Blood alcohol level 28. I spoke with Dr. Pagan of GI, who recommends NG tube in 2 units of packed red blood cells. Critical Care Narrative Aggregate critical care time was 70 minutes. Time to perform other separately billable procedures was not included in the critical care time. My time did not include minutes spent treating any other patients simultaneously or on activities that did not directly contribute to the patient's treatment. The services I provided to this patient were to treat and/or prevent clinically significant deterioration that could result in: Cardiopulmonary decompensation, hemorrhagic decompensation, , disability I provided critical care services requiring my management, as noted below: Chart data review, documentation time, medication orders and management, vital sign assessments/reviewing monitor data, ordering and reviewing lab tests, ordering and interpreting/reviewing x-rays and diagnostic studies, care of the patient and discussion of the patient with the admitting physicians. Sepsis Criteria SIRS Criteria (2 or more): Heart rate over 90, RR > 20 or PaCO2 < 32 Severe Sepsis (+one): Lactate >2 Septic Shock Criteria: Lactic acid >=4 Criteria Outcome: Meets SIRS criteria, Meets sepsis criteria, Meets severe sepsis criteria, Meets septic shock criteria Diagnosis Primary Impression: Upper GI bleed Additional Impressions: Anemia Qualified Code: D64.9 - Anemia, unspecified type Coagulopathy Shock Lactic acidosis Admitting Information Admitting Physician Requests: Admit Janice Vanegas MD Jan 29, 2017 00:14
[2017-01-29] MEDS ORDERED: PHYTONADIONE 10 MG/ML VIAL SQ ONE (00:30)
[2017-01-29 00:32] LABS: CALCIUM-PROTEIN CORRECTED 7.4 MG/DL (8.5-10.1)
[2017-01-29] MEDS ORDERED: ONDANSETRON HCL 4 MG/2 ML VIAL IV PUSH PRN (00:45)
[2017-01-29] MEDS ORDERED: SENNOSIDES 8.6 MG TAB PO PRN (01:00)
[2017-01-29] MEDS ORDERED: BISACODYL 10 MG SUPP RECTAL PRN (01:00)
[2017-01-29] MEDS ORDERED: MISCELLANEOUS NURSING INFORMATION XX SCH (01:00)
[2017-01-29] MEDS ORDERED: RESP: ALBUTEROL 2.5 MG/IPRATROPIUM 0.5 MG NEB (PRN) INH (01:00)
[2017-01-29] MEDS ORDERED: POTASSIUM CHLOR 20 MEQ PREMIX 100 ML IV ONE (01:00)
[2017-01-29] MEDS ORDERED: CALCIUM GLUCONATE INJ 1 GM in DEXTROSE 5% IN WATER 100ML INJ 100 ML IV ONE ×4 (01:00→01:45)
[2017-01-29] MEDS ORDERED: CHLORHEXIDINE GLUCONATE 2 % 1 PACK (2 CLOTHS) TOP PRN (01:00)
[2017-01-29] MEDS ORDERED: LACTULOSE SYRUP 20 GM/30 ML CUP PO PRN (01:00)
[2017-01-29] MEDS ORDERED: MAGNESIUM HYDROXIDE SUSP 30 ML CUP PO PRN (01:00)
--- NOTE | 2017-01-29 01:09 | HHI.HP ---
HPI Service Critical Care Medicine Primary Care Physician Pablo Ledezma MD Admission Diagnosis upper GI bleed, hemorrhagic shock Diagnosis: (1) Early hemorrhagic shock Diagnosis: Principal (2) Upper GI bleed Diagnosis: Principal (3) Acute blood loss anemia Diagnosis: Principal (4) Lactic acidosis Diagnosis: Principal (5) Elevated INR Diagnosis: Principal (6) Coagulopathy Diagnosis: Principal (7) Tachycardia Diagnosis: Principal (8) Hypokalemia Diagnosis: Principal (9) Hypernatremia Diagnosis: Principal (10) Colitis Diagnosis: Principal (11) Transaminitis Diagnosis: Secondary (12) Alcohol dependence Diagnosis: Secondary (13) Liver cirrhosis Diagnosis: Secondary (14) Esophagitis Diagnosis: Secondary (15) Gastritis Diagnosis: Secondary Travel History International Travel<30 Days: No Contact w/Intl Traveler <30 Da: No Traveled to Known Affected Are: No History of Present Illness Patient is 51 year old white female with past medical history significant for liver cirrhosis, alcohol dependence, history of GI bleed in the past from esophagitis and gastritis, continued alcohol use who presented to the emergency department with multiple melena 01/27 and followed by coffee-ground vomiting from 0600 AM on 01/28 which later changed to bright red blood. In the ER patient was tachycardic in the 120s anxious. She had approximately 500 mL bloody emesis witnessed by EMS. In the ER her hemoglobin was 8.1 and lactic acid was 5.9. Patient was given 2L crystalloid boluses and 2 units of PRBC had been ordered. She was started on IV Protonix bolus and infusion, and octreotide infusion. GI Dr. Pagan had been contacted-plan for EGD today. I evaluated the patient in the ED after CT of the abdomen was done. Patient is anxious, and now receiving first unit of blood. She admits to occasionally drinking glass of wine. CT abdomen and pelvis shows evidence of liver cirrhosis and portal hypertension and colitis. Patient had been started on Rocephin for SBP prophylaxis and I have added IV Flagyl for colitis. C. difficile requested. Abnormal labs: INR 1.4, fibrinogen 129, ammonia 41. Potassium 3.1, Calcium 7.4, and blood alcohol level 28. Patient was placed on electrolyte replacement protocol, vitamin K was given in ED and IV calcium. Review of Systems ROS Limitations: Clinical Condition (per HPI) Past Family Social History Allergies: Coded Allergies: Voltaren (Unverified Adverse Reaction, Severe, headache, 09/19/16) Past Medical History Asthma Ascites Liver cirrhosis Insomnia Peptic ulcer disease Esophagitis and Gastritis Past Surgical History Hysterectomy-2003 Back surgery EGD last on 09/21/16 Reported Medications Ferrous Sulfate 325 Mg Tab 325 Mg PO DAILY Thiamine (Thiamine HCl) 100 Mg Tab 100 Mg PO DAILY Active Ordered Medications Reviewed Family History Family history of CAD Social History Quit smoking 2 days ago Continues to consume alcohol Physical Exam Vital Signs Vital Signs Date Time Temp Pulse Resp B/P Pulse Ox O2 Delivery O2 Flow Rate FiO2 01/28/17 23:51 101 18 142/95 100 Room Air 01/28/17 23:24 98.2 111 22 133/85 100 Physical Exam GENERAL: 51 yo female in moderate distress SKIN: Warm/dry. HEAD: Normocephalic. EYES: No scleral icterus. No injection or drainage. ENT: Dried blood in the oropharynx. NECK: Supple CARDIOVASCULAR: Tachycardic in the 110s. No murmur appreciated. RESPIRATORY: No accessory muscle use. Clear to auscultation. GASTROINTESTINAL: Abdomen soft, mild epigastric abdominal tenderness to palpation without rebound or guarding. Mild distension MUSCULOSKELETAL: No obvious deformities. No edema. NEUROLOGICAL: Awake and alert. Motor grossly within normal limits. Normal speech. Anxious Laboratory Laboratory Tests Test 01/28/17 23:35 White Blood Count 10.0 Red Blood Count 3.11 Hemoglobin 8.1 Hematocrit 26.2 Mean Corpuscular Volume 84.2 Mean Corpuscular Hemoglobin 26.0 Mean Corpuscular Hemoglobin 30.9 Concent Red Cell Distribution Width 22.7 Platelet Count 221 Mean Platelet Volume 7.5 Neutrophils (%) (Auto) 80.7 Lymphocytes (%) (Auto) 10.6 Monocytes (%) (Auto) 8.3 Eosinophils (%) (Auto) 0.0 Basophils (%) (Auto) 0.4 Neutrophils # (Auto) 8.0 Lymphocytes # (Auto) 1.1 Monocytes # (Auto) 0.8 Eosinophils # (Auto) 0.0 Basophils # (Auto) 0.0 CBC Comment DIFF FINAL Differential Comment Prothrombin Time 15.7 Prothromb Time International 1.4 Ratio Activated Partial 24.7 Thromboplast Time Fibrinogen 129 Sodium Level 148 Potassium Level 3.1 Chloride Level 111 Carbon Dioxide Level 25.4 Anion Gap 12 Blood Urea Nitrogen 9 Creatinine 0.45 Estimat Glomerular Filtration 148 Rate Random Glucose 113 Lactic Acid Level 5.9 Calcium Level 6.4 Protein Corrected Calcium 7.4 Total Bilirubin 0.7 Aspartate Amino Transf 50 (AST/SGOT) Alanine Aminotransferase 21 (ALT/SGPT) Alkaline Phosphatase 145 Ammonia 41 Total Protein 5.0 Albumin 2.1 Lipase 71 Ethyl Alcohol Level 28 Blood Type O POSITIVE Antibody Screen NEGATIVE Crossmatch Leukocyte-Reduced Red Blood Cells Blood Bank Comment Date/Time Procedure Status Source Growth 01/28/17 23:35 Aerobic Blood Culture Received Blood Peripheral Pending 01/28/17 23:35 Anaerobic Blood Culture Received Blood Peripheral Pending Result Diagram: 01/28/17 2335 01/28/[address] abd reviewed Septic Shock Reassessment Heart: Other (tachycardic) Skin: Dry Peripheral Pulses: Weak Right Radial Weak Left Radial Capillary Refill: >2 seconds Assessment and Plan Assessment and Plan NEURO: Alcohol dependence - Patient continues to drink despite liver cirrhosis. Complete abstinence advised - Supplement thiamine and multivitamin and folic acid - Watch for alcohol withdrawal RESP: - Nasal cannula oxygen if needed - DuoNeb when necessary if needed CV: Tachycardia/early shock Lactic acidemia - Normal saline IV fluids 2L bolus and 100 ml per hour - Trend lactic acid - Lactic acidosis due to poor perfusion and liver disease GI: Liver cirrhosis with portal hypertension Upper GI bleed History of esophagitis and gastritis Colitis - Transfuse 2 units PRBC, IV Protonix and IV octreotide started - GI Dr. Pagan, plan for EGD today - Continue nothing by mouth - Previous EGD showed esophagitis and gastritis on 09/21/16 - Rocephin for SBP prophylaxis, Flagyl started for colitis : - Monitor renal function closely. ID: - Rocephin for SBP prophylaxis, Flagyl added for colitis, check C. difficile HEME: Coagulopathy Anemia requiring transfusion - Monitor CBC, CMP, coags - Transfuse 2 units PRBC, give one pack units of cryoprecipitate - Vitamin K given in the ED ENDO: Hypokalemia Hypernatremia Hypocalcemia - Electrolyte replacement per protocol, replace calcium PROPH: - Bilateral lower extremity SCDs. Avoid chemical DVT prophylaxis. Continue IV Protonix LINES: - Utilize peripheral IVs, central line if needed CC time 45 min Code Status Full Discussed Condition With Dr. Vanegas Problem Qualifiers (1) Alcohol dependence: (2) Liver cirrhosis: (3) Gastritis: Kerry Florentino MD Jan 29, 2017 01:08
[2017-01-29] MEDS ORDERED: MAGNESIUM SULFATE INJ 2 GM in SODIUM CHLORIDE 0.9% INJ 96 ML IV PRN (01:15)
[2017-01-29] MEDS ORDERED: POTASSIUM CHLORIDE 25 MEQ EFFERVESCENT TAB PO ONE (01:15)
[2017-01-29] MEDS ORDERED: POTASSIUM CHLOR 40 MEQ PREMIX 100 ML IV PRN ×2 (01:15)
[2017-01-29] MEDS ORDERED: MAGNESIUM OXIDE 400 MG TAB PO PRN (01:15)
[2017-01-29] MEDS ORDERED: SODIUM PHOSPHATE INJ 30 MMOL in SODIUM CHLOR 0.9% 250 ML INJ 240 ML IV PRN (01:15)
[2017-01-29] MEDS ORDERED: POTASSIUM CHLOR 20 MEQ PREMIX 100 ML IV PRN ×2 (01:15)
[2017-01-29] MEDS ORDERED: POTASSIUM PHOSPHATE MONOBASIC 500 MG TAB PO/TUBE PRN (01:15)
[2017-01-29] MEDS ORDERED: POTASSIUM PHOSPHATE MONOBASIC 500 MG TAB PO PRN (01:15)
[2017-01-29] MEDS ORDERED: MAGNESIUM SULFATE INJ 4 GM in SODIUM CHLORIDE 0.9% INJ 92 ML IV PRN (01:15)
[2017-01-29] MEDS ORDERED: POTASSIUM CHLORIDE 25 MEQ EFFERVESCENT TAB PO PRN (01:15)
[2017-01-29] MEDS ORDERED: POTASSIUM PHOSPHATE INJ 30 MMOL in SODIUM CHLOR 0.9% 250 ML INJ 250 ML IV PRN (01:15)
[2017-01-29] MEDS ORDERED: IOHEXOL 350 MG/ML 10 ML VIAL (for RAD DIAG) IV ONE (01:22)
--- NOTE | 2017-01-29 01:30 | RADRPT ---
EXAM DATE/TIME: 01/29/2017 01:18 [place] COMPARISON: CT ABDOMEN & PELVIS W CONTRAST, September 19, 2016, 13:32. INDICATIONS : Epigastric pain with bright red emesis. Evaluate for GI bleed. IV CONTRAST: 85 cc Omnipaque 350 (iohexol) IV ORAL CONTRAST: No oral contrast ingested. RADIATION DOSE: 4.96 CTDIvol (mGy) MEDICAL HISTORY : Hypertension. Ulcers. Cirrhosis. SURGICAL HISTORY : Hysterectomy. Back surgery. ENCOUNTER: Initial ACUITY: 1 day PAIN SCALE: 9/10 LOCATION: epigastric TECHNIQUE: Volumetric scanning of the abdomen and pelvis was performed. Using automated exposure control and ad justment of the mA and/or kV according to patient size, radiation dose was kept as low as reasonably achievable to obtain optimal diagnostic quality images. DICOM format image data is available electro nically for review and comparison. FINDINGS: Bilateral breast implant are noted. No pleural effusions. Esophageal varices are identified as well a s gastric air is. Hepatic steatosis and cirrhotic appearing liver with small amount of perihepatic fr ee fluid and small amount of free fluid in the pelvis. There is diffuse circumferential bowel wall th ickening involving the entire colon greatest in the ascending colon characteristic of her bladder col itis. The urinary bladder is unremarkable. Spleen, pancreas, adrenals, kidneys are unremarkable. Capu t medusae again noted recanalization of the umbilical vein. Portal vein is patent. Sludge in the gall bladder. Degenerative changes of the spine are noted. Lung bases are clear.. CONCLUSION: 1. Cirrhosis and portal hypertension. 2. Colitis. 3. Gallbladder sludge versus tiny stones. Santi Loo MD on January 29, 2017 at 1:26 Board Certified Radiologist. This report was verified electronically.
[2017-01-29] MEDS: PANTOPRAZOLE INJ 80 MG in SODIUM CHLORIDE 0.9% INJ 100 ML IV SCH ×3 (01:35→20:23)
[2017-01-29 01:42] LABS: LACTIC ACID GHOST NOT REPORTABLE
[2017-01-29] MEDS ORDERED: HYDROmorphone HCL PF 1 MG/ML VIAL IV PUSH ONE (01:45)
[2017-01-29] MEDS ORDERED: ONDANSETRON HCL 4 MG/2 ML VIAL IV PUSH ONE ×2 (01:45→12:00)
[2017-01-29] MEDS: NS + KCL 20 MEQ INJ 1,000 ML IV SCH ×3 (02:31→20:01)
[2017-01-29] MEDS: CHLORHEXIDINE GLUCONATE 2 % 1 PACK (2 CLOTHS) TOP SCH (04:00)
[2017-01-29] MEDS: metroNIDAZOLE 500 MG INJ 100 ML IV SCH ×3 (05:23→19:02)
[2017-01-29] MEDS: MORPHINE SULFATE 4 MG/ML INJ IV PRN ×5 (05:55→22:41)
--- NOTE | 2017-01-29 08:16 | PD.CONS ---
HPI History of Present Illness This is a 51 year old female patient admitted for hematemesis and adominal pain. she has been transfused PRBC overnight. She reports severe mid to lower abdominal pain. The pain is constant. She reports having an EGD within the last 6 months that showed no ulcers and she did not receive banding. She had a colonoscopy then and had some polyps removed. CT scan of abdomen and pelvis shows esophageal varices and caput medusa. Minimal ascites. GB has a small amount of sludge or small stones. ROS: denies fever, chills. No dysuria, otherwise complete ros is negative.[]. [facility] Coded Allergies: Voltaren (Unverified Adverse Reaction, Severe, headache, 09/19/16) GI Exam Vitals I&O Vital Signs Date Time Temp Pulse Resp B/P Pulse Ox O2 Delivery O2 Flow Rate FiO2 01/29/17 07:44 100 Nasal Cannula 2.00 01/29/17 06:00 93 01/29/17 04:00 98.7 97 20 127/72 100 01/29/17 04:00 94 01/29/17 03:56 102 18 116/80 100 01/29/17 03:00 110 18 113/74 100 Nasal Cannula 2 01/29/17 02:20 112 18 117/73 100 Nasal Cannula 2 01/29/17 02:17 100 01/29/17 02:10 98.8 102 18 114/75 100 Room Air 01/29/17 01:55 98.4 102 16 115/74 100 01/29/17 01:55 102 18 115/74 100 Nasal Cannula 2 01/29/17 00:45 104 18 122/78 100 Nasal Cannula 2 01/28/17 23:51 101 18 142/95 100 Room Air 01/28/17 23:24 98.2 111 22 133/85 100 I/O 01/28/17 01/28/17 01/28/17 01/29/17 01/29/17 01/29/17 07:00 15:00 23:00 07:00 15:00 23:00 Output Total 600 ml Balance -600 ml Output Urine Total 350 ml Emesis 250 ml # Bowel Movements 0 Laboratory Test 01/28/17 01/29/17 23:35 03:25 White Blood Count 10.0 TH/MM3 Red Blood Count 3.11 MIL/MM3 Hemoglobin 8.1 GM/DL Hematocrit 26.2 % Mean Corpuscular Volume 84.2 FL Mean Corpuscular Hemoglobin 26.0 PG Mean Corpuscular Hemoglobin 30.9 % Concent Red Cell Distribution Width 22.7 % Platelet Count 221 TH/MM3 Mean Platelet Volume 7.5 FL Neutrophils (%) (Auto) 80.7 % Lymphocytes (%) (Auto) 10.6 % Monocytes (%) (Auto) 8.3 % Eosinophils (%) (Auto) 0.0 % Basophils (%) (Auto) 0.4 % Neutrophils # (Auto) 8.0 TH/MM3 Lymphocytes # (Auto) 1.1 TH/MM3 Monocytes # (Auto) 0.8 TH/MM3 Eosinophils # (Auto) 0.0 TH/MM3 Basophils # (Auto) 0.0 TH/MM3 CBC Comment DIFF FINAL Differential Comment Prothrombin Time 15.7 SEC Prothromb Time International 1.4 RATIO Ratio Activated Partial 24.7 SEC Thromboplast Time Fibrinogen 129 mg/dL Sodium Level 148 MEQ/L Potassium Level 3.1 MEQ/L Chloride Level 111 MEQ/L Carbon Dioxide Level 25.4 MEQ/L Anion Gap 12 MEQ/L Blood Urea Nitrogen 9 MG/DL Creatinine 0.45 MG/DL Estimat Glomerular Filtration 148 ML/MIN Rate Random Glucose 113 MG/DL Lactic Acid Level 5.9 mmol/L 3.1 mmol/L Calcium Level 6.4 MG/DL Protein Corrected Calcium 7.4 MG/DL Phosphorus Level 2.4 MG/DL Total Bilirubin 0.7 MG/DL Aspartate Amino Transf 50 U/L (AST/SGOT) Alanine Aminotransferase 21 U/L (ALT/SGPT) Alkaline Phosphatase 145 U/L Ammonia 41 MCMOL/L Total Protein 5.0 GM/DL Albumin 2.1 GM/DL Lipase 71 U/L Ethyl Alcohol Level 28 MG/DL Blood Type O POSITIVE Antibody Screen NEGATIVE Crossmatch Leukocyte-Reduced Red Blood Cells Blood Bank Comment Date/Time Procedure Status Source Growth 01/28/17 23:35 Aerobic Blood Culture Received Blood Peripheral Pending 01/28/17 23:35 Anaerobic Blood Culture Received Blood Peripheral Pending Physical Examination HEENT: Pupils round and reactive to light; normocephalic; atraumatic; no jaundice. Throat is clear. NECK: Neck is supple, no JVD, no lymphadenopathy. CHEST: Chest is clear to auscultation and percussion. Small spots of purpura on chest possible spiders. CARDIAC: Regular rate and rhythm with no murmur gallop or rubs. ABDOMEN: Tender with guarding and decreased to absent bowel sounds. EXTREMITIES: No clubbing, cyanosis, or edema. SKIN: Normal; no rash; no jaundice. RECOVERY SPECIALIST: No focal deficits; alert and oriented times three. Assessment and Plan Plan Imp: GI bleed, hemtemesis with esophageal varices on CT. Abdominal pain with guarding. Rule out Acute cholecystitis. Plan: EGD now with esophageal banding if no other cause for bleeding seen. Possible HIDA scan or US of gallbladder. Rufino Brar MD Jan 29, 2017 08:16
[2017-01-29 08:30] LABS: HEMATOCRIT 32.1 % (35.0-46.0); REVIEW FLAG FINAL
[2017-01-29] MEDS ORDERED: PROPOFOL 200 MG/20 ML AMP IV ONE (08:41)
[2017-01-29] MEDS: MULTIVITAMIN INJ 10 ML, THIAMINE INJ 100 MG, FOLIC ACID INJ 1 MG in SODIUM CHLORID 0.9%... IV SCH (09:00)
[2017-01-29] MEDS: DOCUSATE SODIUM 50 MG/SENNA 8.6 MG TAB PO SCH ×2 (09:00→20:43)
--- NOTE | 2017-01-29 09:13 | HHI.GIFU ---
Subjective Remarks EGD performed with esophageal banding. 4 bands applied. There was active bleeding during the procedure. the banding appeared to be successful. Objective Vitals I&O Vital Signs Date Time Temp Pulse Resp B/P Pulse Ox O2 Delivery O2 Flow Rate FiO2 01/29/17 07:44 100 Nasal Cannula 2.00 01/29/17 06:00 93 01/29/17 04:00 98.7 97 20 127/72 100 01/29/17 04:00 94 01/29/17 03:56 102 18 116/80 100 01/29/17 03:00 110 18 113/74 100 Nasal Cannula 2 01/29/17 02:20 112 18 117/73 100 Nasal Cannula 2 01/29/17 02:17 100 01/29/17 02:10 98.8 102 18 114/75 100 Room Air 01/29/17 01:55 98.4 102 16 115/74 100 01/29/17 01:55 102 18 115/74 100 Nasal Cannula 2 01/29/17 00:45 104 18 122/78 100 Nasal Cannula 2 01/28/17 23:51 101 18 142/95 100 Room Air 01/28/17 23:24 98.2 111 22 133/85 100 I/O 01/28/17 01/28/17 01/28/17 01/29/17 01/29/17 01/29/17 07:00 15:00 23:00 07:00 15:00 23:00 Output Total 600 ml Balance -600 ml Output Urine Total 350 ml Emesis 250 ml # Bowel Movements 0 Laboratory Laboratory Tests Test 01/28/17 01/29/17 01/29/17 23:35 03:25 08:15 White Blood Count 10.0 Red Blood Count 3.11 Hemoglobin 8.1 10.7 Hematocrit 26.2 32.1 Mean Corpuscular Volume 84.2 Mean Corpuscular Hemoglobin 26.0 Mean Corpuscular Hemoglobin 30.9 Concent Red Cell Distribution Width 22.7 Platelet Count 221 Mean Platelet Volume 7.5 Neutrophils (%) (Auto) 80.7 Lymphocytes (%) (Auto) 10.6 Monocytes (%) (Auto) 8.3 Eosinophils (%) (Auto) 0.0 Basophils (%) (Auto) 0.4 Neutrophils # (Auto) 8.0 Lymphocytes # (Auto) 1.1 Monocytes # (Auto) 0.8 Eosinophils # (Auto) 0.0 Basophils # (Auto) 0.0 CBC Comment DIFF FINAL Differential Comment Prothrombin Time 15.7 Prothromb Time International 1.4 Ratio Activated Partial 24.7 Thromboplast Time Fibrinogen 129 Sodium Level 148 Potassium Level 3.1 Chloride Level 111 Carbon Dioxide Level 25.4 Anion Gap 12 Blood Urea Nitrogen 9 Creatinine 0.45 Estimat Glomerular Filtration 148 Rate Random Glucose 113 Lactic Acid Level 5.9 3.1 Calcium Level 6.4 Protein Corrected Calcium 7.4 Phosphorus Level 2.4 Total Bilirubin 0.7 Aspartate Amino Transf 50 (AST/SGOT) Alanine Aminotransferase 21 (ALT/SGPT) Alkaline Phosphatase 145 Ammonia 41 Total Protein 5.0 Albumin 2.1 Lipase 71 Ethyl Alcohol Level 28 Blood Type O POSITIVE Antibody Screen NEGATIVE Crossmatch Leukocyte-Reduced Red Blood Cells Blood Bank Comment Date/Time Procedure Status Source Growth 01/28/17 23:35 Aerobic Blood Culture Received Blood Peripheral Pending 01/28/17 23:35 Anaerobic Blood Culture Received Blood Peripheral Pending Physical Exam HEENT: Pupils round and reactive to light; normocephalic; atraumatic; no jaundice. Throat is clear. NECK: Neck is supple, no JVD, no lymphadenopathy. CHEST: Chest is clear to auscultation and percussion. CARDIAC: Regular rate and rhythm with no murmur gallop or rubs. ABDOMEN: Tender with guarding. EXTREMITIES: No clubbing, cyanosis, or edema. SKIN: Normal; no rash; no jaundice. CLINICAL RESEARCH COORDINATOR: No focal deficits; alert and oriented times three. Assessment and Plan Plan Imp: GI bleed, hemtemesis with esophageal varices on CT. Abdominal pain with guarding. Rule out Acute cholecystitis. Plan: EGD now with esophageal banding if no other cause for bleeding seen. Possible HIDA scan or US of gallbladder. EGD performed. Esophageal variceal bleeding confirmed. Active bleeding during the procedure. 4 bands applied with apparent success. Octreotide 50mcg per hour IV drip. Clear liquid diet. Rufino Brar MD Jan 29, 2017 09:13
[2017-01-29] MEDS ORDERED: *MEPERIDINE 25 MG INJ VIAL PERIprocedural Use ONLY ONE (09:29)
[2017-01-29] MEDS ORDERED: *morphine SULFATE 8 MG/ML PERIprocedure ONLY ONE (09:37)
[2017-01-29] MEDS ORDERED: DO NOT ADM ANY ANTICOAGULANT DRUGS PRN (10:00)
[2017-01-29] MEDS: OCTREOTIDE INJ 500 MCG in SODIUM CHLORID 0.9% 500 ML INJ 500 ML IV SCH ×2 (11:00→20:34)
[2017-01-29] MEDS ORDERED: cefTRIAXone INJ 1,000 MG in SODIUM CHLORIDE 0.9% INJ 100 ML IV SCH (12:00)
--- NOTE | 2017-01-29 16:28 | EKG ---
Date Performed: 01/28/2017 Time Performed: 23:28:26 PTAGE: 51 years EKG: SINUS TACHYCARDIA NONSPECIFIC T-WAVE ABNORMALITY ABNORMAL RHYTHM ECG PREVIOUS TRACING : 12/30/2015 09.53 Since previous tracing, no significant change noted DOCTOR: Stas Smith Interpretating Date/Time 01/29/2017 16:27:37
[2017-01-30] VITALS (20 sets, daily range): BP systolic 106–147; BP diastolic 64–87; PULSE 71–99; RESP 13–28; TEMP 98.3–99.4; O2SAT 97–100
[2017-01-30 00:36] LABS: HEMATOCRIT 29.1 % (35.0-46.0); REVIEW FLAG FINAL
[2017-01-30] MEDS: metroNIDAZOLE 500 MG INJ 100 ML IV SCH ×3 (00:44→17:54)
[2017-01-30] MEDS: cefTRIAXone INJ 2,000 MG in SODIUM CHLORIDE 0.9% INJ 100 ML IV SCH (00:45)
[2017-01-30] MEDS: MORPHINE SULFATE 4 MG/ML INJ IV PRN ×7 (01:34→19:46)
[2017-01-30] MEDS: CHLORHEXIDINE GLUCONATE 2 % 1 PACK (2 CLOTHS) TOP SCH (04:00)
[2017-01-30 04:18] LABS: AUTOMATED NEUTROPHIL # 6.2 TH/MM3 (1.8-7.7); BASOPHIL % 0.4 % (0.0-2.0); EOSINOPHIL % 0.5 % (0.0-4.0); HEMATOCRIT 27.6 % (35.0-46.0); LYMPH % 23.9 % (9.0-44.0); LYMPHOCYTE # 2.3 TH/MM3 (1.0-4.8); MEAN CELL VOLUME 84.8 FL (80.0-100.0); MEAN CORPUSCULAR HGB CONC 34.1 % (32.0-36.0); MONO % 12.4 % (0.0-8.0); NEUT % 62.8 % (16.0-70.0); PLATELET COUNT 116 TH/MM3 (150-450); RED BLOOD COUNT 3.26 MIL/MM3 (4.00-5.30); RED CELL DISTRIBUTION WIDTH 18.4 % (11.6-17.2); WHITE BLOOD COUNT 9.8 TH/MM3 (4.0-11.0)
[2017-01-30 04:22] LABS: HEMO FLAGS AUTO DIFF
[2017-01-30 04:47] LABS: BICARBONATE 26.8 MEQ/L (21.0-32.0); CALCIUM-PROTEIN CORRECTED 8.4 MG/DL (8.5-10.1); MAGNESIUM 1.3 MG/DL (1.5-2.5); POTASSIUM 3.4 MEQ/L (3.5-5.1); TOTAL BILIRUBIN ADULT 1.1 MG/DL (0.2-1.0)
[2017-01-30] MEDS: OCTREOTIDE INJ 500 MCG in SODIUM CHLORID 0.9% 500 ML INJ 500 ML IV SCH ×2 (05:12→14:47)
[2017-01-30] MEDS: NS + KCL 20 MEQ INJ 1,000 ML IV SCH (05:12)
[2017-01-30] MEDS: PANTOPRAZOLE INJ 80 MG in SODIUM CHLORIDE 0.9% INJ 100 ML IV SCH ×2 (05:12→14:48)
[2017-01-30 06:07] LABS: ACANTHOCYTES OCC (NORMAL); OVALOCYTES 1+ (NORMAL)
[2017-01-30 06:08] LABS: PLATELET ESTIMATE SMEAR LOW (NORMAL); PLATELET MORPHOLOGY NORMAL (NORMAL)
[2017-01-30 06:09] LABS: POLYCHROMASIA 2.6 % (0.0-1.9); SCAN/DIFF AUTO DIFF CONFIRMED
[2017-01-30] MEDS: DOCUSATE SODIUM 50 MG/SENNA 8.6 MG TAB PO SCH ×2 (09:00→21:00)
--- NOTE | 2017-01-30 10:14 | HHI.CCPN ---
Subjective Remarks/Hospital Course Patient is 51 year old white female with past medical history significant for liver cirrhosis, alcohol dependence, history of GI bleed in the past from esophagitis and gastritis, continued alcohol use who presented to the emergency department with multiple melena 01/27 and followed by coffee-ground vomiting from 0600 AM on 01/28 which later changed to bright red blood. In the ER patient was tachycardic in the 120s anxious. She had approximately 500 mL bloody emesis witnessed by EMS. In the ER her hemoglobin was 8.1 and lactic acid was 5.9. Patient was given 2L crystalloid boluses and 2 units of PRBC had been ordered. She was started on IV Protonix bolus and infusion, and octreotide infusion. GI Dr. Pagan had been contacted-plan for EGD today. I evaluated the patient in the ED after CT of the abdomen was done. Patient is anxious, and now receiving first unit of blood. She admits to occasionally drinking glass of wine. CT abdomen and pelvis shows evidence of liver cirrhosis and portal hypertension and colitis. Patient had been started on Rocephin for SBP prophylaxis and I have added IV Flagyl for colitis. C. difficile requested. Abnormal labs: INR 1.4, fibrinogen 129, ammonia 41. Potassium 3.1, Calcium 7.4, and blood alcohol level 28. Patient was placed on electrolyte replacement protocol, vitamin K was given in ED and IV calcium. Subjective: 01/30: The patient underwent GI intervention with esophageal banding yesterday. Hemoglobin stable, continued monitoring. The patient continues on octreotide and Protonix infusion. Last night the patient was noted to have 2 episodes of melena, that is post procedure. The patient complains of chronic pain, home med medication regimen included oxycodone with acetaminophen which was placed on hold. Morphine ineffective, patient was placed on Roxicodone this a.m.. Objective Vital Signs Date Time Temp Pulse Resp B/P Pulse Ox O2 Delivery O2 Flow Rate FiO2 01/30/17 08:12 98 01/30/17 06:00 81 01/30/17 04:00 98.7 22 120/72 01/29/17 20:46 21 01/29/17 09:55 Room Air 01/29/17 09:30 2 Intake and Output 01/29/17 01/29/17 01/30/17 08:00 16:00 00:00 Intake Total 1392 ml Output Total 600 ml 600 ml Balance -600 ml 792 ml Result Diagram: 01/30/1739901/30/[address] abd reviewed Objective Remarks GENERAL: 51 yo female in moderate distress with complaints of back pain SKIN: Warm/dry. HEAD: Normocephalic. EYES: No scleral icterus. No injection or drainage. ENT: Dried blood in the oropharynx. NECK: Supple CARDIOVASCULAR: Regular rate and rhythm. No murmur appreciated. RESPIRATORY: No accessory muscle use. Clear to auscultation. GASTROINTESTINAL: Abdomen soft, mild epigastric abdominal tenderness to palpation without rebound or guarding. Mild distension MUSCULOSKELETAL: No obvious deformities. No edema. NEUROLOGICAL: Awake and alert. Motor grossly within normal limits. Normal speech. A/P Assessment and Plan NEURO: Alcohol dependence Chronic pain syndrome - Patient continues to drink despite liver cirrhosis. Complete abstinence advised - Supplement thiamine and multivitamin and folic acid - Watch for signs of alcohol withdrawal -Patient's VAS pain scale baseline 4/10. Normally takes oxycodone at home every 6 hours. Initiated Roxicodone every 6 hours when necessary RESP: - Nasal cannula oxygen if needed - DuoNeb when necessary if needed CV: Tachycardia/early shock-resolved Lactic acidemia-resolved -01/29 Normal saline IV fluids 2L bolus and 100 ml per hour - Hemodynamically stable - Lactic acidosis resolved GI: Liver cirrhosis with portal hypertension Upper GI bleed History of esophagitis and gastritis Colitis - 01/29 Transfuse 2 units PRBC - IV Protonix and IV octreotide into new per GI recommendations - GI Dr. Brar S/P EGD with esophageal banding - Continue nothing by mouth - Previous EGD showed esophagitis and gastritis on 09/21/16 - Rocephin for SBP prophylaxis, and Flagyl for colitis : - Monitor renal function closely. ID: - Rocephin for SBP prophylaxis, Flagyl added for colitis, check C. difficile HEME: Coagulopathy Anemia requiring transfusion - Monitor CBC, CMP, coags - Transfuse 2 units PRBC, give one pack units of cryoprecipitate - Vitamin K given in the ED ENDO: Hypokalemia Hypernatremia Hypocalcemia - Electrolyte replacement per protocol -Monitor BMP PROPH: - Bilateral lower extremity SCDs. Avoid chemical DVT prophylaxis. Continue IV Protonix LINES: - Utilize peripheral IVs, central line if needed Level 2. Plan transfer to [facility] in a.m.. Discussed with BANQUET STEWARDESS at bedside Physician <Katina Torres MD Jan 30, 2017 10:14
[2017-01-30] MEDS: MULTIVITAMIN INJ 10 ML, THIAMINE INJ 100 MG, FOLIC ACID INJ 1 MG in SODIUM CHLORID 0.9%... IV SCH (10:53)
[2017-01-30] MEDS ORDERED: POTASSIUM CHLORIDE 20 MEQ CONTROLLED RELEASE TAB PO ONE (13:00)
[2017-01-30 15:35] LABS: INTERNATIONAL NORMALIZED RATIO 1.2 RATIO; PROTHROMBIN TIME - PATIENT 13.6 SEC (9.8-11.6)
--- NOTE | 2017-01-30 15:36 | HHI.GIFU ---
Subjective Remarks Pt resting in bed, visiting with friend. She did have black stools after procedure. NO hematemesis. Tolerating juice. She is still having abd pain she says is worse in lower abd area but RUQ is very tender on exam. Objective Vitals I&O Vital Signs Date Time Temp Pulse Resp B/P Pulse Ox O2 Delivery O2 Flow Rate FiO2 01/30/17 11:12 18 01/30/17 08:12 98 01/30/17 06:00 81 01/30/17 04:00 98.7 87 22 120/72 100 01/30/17 04:00 87 01/30/17 02:00 88 01/30/17 00:00 98.3 86 19 128/72 100 01/30/17 00:00 87 01/29/17 22:00 84 01/29/17 20:46 98 21 01/29/17 20:00 100.4 84 20 140/80 99 01/29/17 20:00 84 01/29/17 18:00 87 01/29/17 16:00 98.9 86 20 128/69 96 01/29/17 16:00 87 I/O 01/29/17 01/29/17 01/29/17 01/30/17 01/30/17 01/30/17 07:00 15:00 23:00 07:00 15:00 23:00 Intake Total 1392 ml 2796 ml Output Total 600 ml 600 ml 704 ml 250 ml Balance -600 ml 792 ml 2092 ml -250 ml Intake Oral 360 ml IV Total 1192 ml 2436 ml Other 200 ml Output Urine Total 350 ml 600 ml 704 ml 250 ml Emesis 250 ml # Voids 2 # Bowel Movements 0 1 2 2 Laboratory Laboratory Tests Test 01/30/17 01/30/17 00:11 04:00 Hemoglobin 9.8 9.4 Hematocrit 29.1 27.6 White Blood Count 9.8 Red Blood Count 3.26 Mean Corpuscular Volume 84.8 Mean Corpuscular Hemoglobin 29.0 Mean Corpuscular Hemoglobin 34.1 Concent Red Cell Distribution Width 18.4 Platelet Count 116 Mean Platelet Volume 8.3 Neutrophils (%) (Auto) 62.8 Lymphocytes (%) (Auto) 23.9 Monocytes (%) (Auto) 12.4 Eosinophils (%) (Auto) 0.5 Basophils (%) (Auto) 0.4 Neutrophils # (Auto) 6.2 Lymphocytes # (Auto) 2.3 Monocytes # (Auto) 1.2 Eosinophils # (Auto) 0.0 Basophils # (Auto) 0.0 CBC Comment AUTO DIFF Differential Comment AUTO DIFF CONFIRMED Platelet Estimate LOW Platelet Morphology Comment NORMAL Polychromasia 2.6 Ovalocytes 1+ Acanthocytes OCC Sodium Level 140 Potassium Level 3.4 Chloride Level 104 Carbon Dioxide Level 26.8 Anion Gap 9 Blood Urea Nitrogen 10 Creatinine 0.45 Estimat Glomerular Filtration 148 Rate Random Glucose 105 Lactic Acid Level 0.9 Calcium Level 7.4 Protein Corrected Calcium 8.4 Magnesium Level 1.3 Total Bilirubin 1.1 Aspartate Amino Transf 36 (AST/SGOT) Alanine Aminotransferase 15 (ALT/SGPT) Alkaline Phosphatase 129 Total Protein 5.3 Albumin 2.3 Date/Time Procedure Status Source Growth 01/28/17 23:35 Aerobic Blood Culture - Preliminary Resulted Blood Peripheral NO GROWTH IN 2 DAYS 01/28/17 23:35 Anaerobic Blood Culture - Preliminary Resulted Blood Peripheral NO GROWTH IN 2 DAYS Imaging Last Impressions Abdomen/Pelvis CT 01/29/17 0000 Signed Impressions: Service Date/Time: Sunday, January 29, 2017 01:18 - CONCLUSION: 1. Cirrhosis and portal hypertension. 2. Colitis. 3. Gallbladder sludge versus tiny stones. Santi Loo MD Physical Exam HEENT: PERRL; normocephalic; atraumatic; no jaundice. CHEST: CTA CARDIAC: RRR ABDOMEN: diffusely Tender with guarding but worse in RUQ EXTREMITIES: No clubbing, cyanosis, or edema. SKIN: Normal; no rash; no jaundice. RADIOLOGIC ELECTRONIC SPECIALIST: No focal deficits; alert and oriented times three. Assessment and Plan Plan ASSESSMENT - GI bleed, hemtemesis with esophageal varices on CT. s/p EGD 4 bands applied, active bleeding. Hgb relatively stable, s/p transfusion - Abdominal pain with guarding, elev LFTs- mild elevation, AST 50, ALT 21, ALP 145, NH 41, Tbil 0.7 on admission. Rule out Acute cholecystitis. Plan: - US RUQ - cont ocreotide - clears - monitor HH - supportive care - this pt seen by myself and Dr Brar and this note is written on his behalf Alejandra Borja Jan 30, 2017 15:35
--- NOTE | 2017-01-30 19:53 | HHI.PR ---
Vitals/Results Intake & Output 01/29/17 01/29/17 01/30/17 15:00 23:00 07:00 Intake Total 1392 ml 2796 ml Output Total 600 ml 704 ml Balance 792 ml 2092 ml Intake Oral 360 ml IV Total 1192 ml 2436 ml Other 200 ml Output Urine Total 600 ml 704 ml # Voids 2 # Bowel Movements 1 2 2 Vital Signs Vital Signs Date Time Temp Pulse Resp B/P Pulse Ox O2 Delivery O2 Flow Rate FiO2 01/30/17 18:00 77 26 118/67 98 01/30/17 17:00 79 28 109/64 100 01/30/17 16:00 98.4 82 17 110/64 98 01/30/17 15:00 79 22 126/78 100 01/30/17 14:12 71 22 114/71 100 01/30/17 13:00 99 23 122/82 100 01/30/17 12:00 98.7 73 20 129/82 100 01/30/17 11:12 18 01/30/17 11:00 83 20 124/74 99 01/30/17 10:00 94 23 143/87 99 01/30/17 09:00 78 17 110/68 99 01/30/17 08:12 98 01/30/17 08:00 98.5 82 16 106/65 97 01/30/17 07:00 88 21 112/75 98 01/30/17 06:00 81 01/30/17 04:00 98.7 87 22 120/72 100 01/30/17 04:00 87 01/30/17 02:00 88 01/30/17 00:00 98.3 86 19 128/72 100 01/30/17 00:00 87 01/29/17 22:00 84 01/29/17 20:46 98 21 01/29/17 20:00 100.4 84 20 140/80 99 01/29/17 20:00 84 CBC/BMP: 01/30/17 0400 01/30/17 0400 Lab Results Laboratory Tests Test 01/30/17 01/30/17 01/30/17 00:11 04:00 14:31 Hemoglobin 9.8 GM/DL 9.4 GM/DL Hematocrit 29.1 % 27.6 % White Blood Count 9.8 TH/MM3 Red Blood Count 3.26 MIL/MM3 Mean Corpuscular Volume 84.8 FL Mean Corpuscular Hemoglobin 29.0 PG Mean Corpuscular Hemoglobin 34.1 % Concent Red Cell Distribution Width 18.4 % Platelet Count 116 TH/MM3 Mean Platelet Volume 8.3 FL Neutrophils (%) (Auto) 62.8 % Lymphocytes (%) (Auto) 23.9 % Monocytes (%) (Auto) 12.4 % Eosinophils (%) (Auto) 0.5 % Basophils (%) (Auto) 0.4 % Neutrophils # (Auto) 6.2 TH/MM3 Lymphocytes # (Auto) 2.3 TH/MM3 Monocytes # (Auto) 1.2 TH/MM3 Eosinophils # (Auto) 0.0 TH/MM3 Basophils # (Auto) 0.0 TH/MM3 CBC Comment AUTO DIFF Differential Comment AUTO DIFF CONFIRMED Platelet Estimate LOW Platelet Morphology Comment NORMAL Polychromasia 2.6 % Ovalocytes 1+ Acanthocytes OCC Sodium Level 140 MEQ/L Potassium Level 3.4 MEQ/L Chloride Level 104 MEQ/L Carbon Dioxide Level 26.8 MEQ/L Anion Gap 9 MEQ/L Blood Urea Nitrogen 10 MG/DL Creatinine 0.45 MG/DL Estimat Glomerular Filtration 148 ML/MIN Rate Random Glucose 105 MG/DL Lactic Acid Level 0.9 mmol/L Calcium Level 7.4 MG/DL Protein Corrected Calcium 8.4 MG/DL Magnesium Level 1.3 MG/DL Total Bilirubin 1.1 MG/DL Aspartate Amino Transf 36 U/L (AST/SGOT) Alanine Aminotransferase 15 U/L (ALT/SGPT) Alkaline Phosphatase 129 U/L Total Protein 5.3 GM/DL Albumin 2.3 GM/DL Prothrombin Time 13.6 SEC Prothromb Time International 1.2 RATIO Ratio Assessment/Plan Problem List: (1) Early hemorrhagic shock (2) Upper GI bleed (3) Acute blood loss anemia (4) Lactic acidosis (5) Elevated INR (6) Coagulopathy (7) Tachycardia (8) Hypokalemia (9) Hypernatremia (10) Colitis (11) Transaminitis (12) Alcohol dependence (13) Liver cirrhosis (14) Esophagitis (15) Gastritis Assessment/Plan 51-year-old female with history of liver cirrhosis, alcohol dependence, hypertension, asthma, hysterectomy, back fusion, quit tobacco 2 days prior to admission. She was admitted to ICU on 01/29/17, she had coffee-ground emesis, heart rate in the 120s, hemoglobin 8.1, lactic acid 5.9. She was treated for sepsis. IV fluids given. 2 units of packed red blood cells given. Vitamin K given. Flagyl given. Potassium was replaced. EGD was done. 4 bands applied. Right upper quadrant ultrasound ordered. Patient received octreotide. His oncologist Dr. Brar following. The patient was seen and evaluated by the undersigned on 01/30/17 at 8 PM in room 517. She is alert and oriented and denies any immediate problems other than anxiety. Patient is seen on medical consultation for transfer of service. We will be happy to take service over, thank you Full consult dictation is done Problem Qualifiers (1) Alcohol dependence: (2) Liver cirrhosis: (3) Gastritis: Jonas Harmon MD Jan 30, 2017 19:53
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
--- NOTE | 2017-01-30 22:42 | RADRPT ---
EXAM DATE/TIME: 01/30/2017 21:50 [facility] COMPARISON: No previous studies available for comparison. INDICATIONS : Right upper quadrant pain. MEDICAL HISTORY : Cirrhosis. Hypertension. Asthma. Ulcer. Hand nerve damage. SURGICAL HISTORY : Back surgery. ENCOUNTER: Initial ACUITY: 1 day PAIN SCORE: 8/10 LOCATION: Right upper quadrant MEASUREMENTS: LIVER: 14.5 cm length COMMON DUCT: 3 mm RIGHT KIDNEY: 9.6 x 5.5 x 4.7 cm FINDINGS: Heterogeneous liver characteristic of fatty infiltration. Small gallbladder polyp. No biliary ductal dilatation. Portal venous flow is normal. No free fluid. Right kidney unremarkable without hydronephr osis. CONCLUSION: 1. Fatty liver. No biliary ductal dilatation. Small gallbladder polyp. No free fluid. Ángel Farr MD on January 30, 2017 at 22:40 Board Certified Radiologist. This report was verified electronically.
[2017-01-31] VITALS (20 sets, daily range): BP systolic 105–138; BP diastolic 62–91; PULSE 57–94; RESP 12–35; TEMP 97.7–98.9; O2SAT 95–100
[2017-01-31] MEDS: MORPHINE SULFATE 4 MG/ML INJ IV PRN ×6 (00:42→18:35)
[2017-01-31] MEDS: cefTRIAXone INJ 2,000 MG in SODIUM CHLORIDE 0.9% INJ 100 ML IV SCH ×2 (00:43→23:07)
[2017-01-31] MEDS: PANTOPRAZOLE INJ 80 MG in SODIUM CHLORIDE 0.9% INJ 100 ML IV SCH (00:59)
[2017-01-31] MEDS: OCTREOTIDE INJ 500 MCG in SODIUM CHLORID 0.9% 500 ML INJ 500 ML IV SCH (01:00)
[2017-01-31] MEDS: metroNIDAZOLE 500 MG INJ 100 ML IV SCH ×3 (02:00→18:35)
[2017-01-31] MEDS: CHLORHEXIDINE GLUCONATE 2 % 1 PACK (2 CLOTHS) TOP SCH (04:00)
[2017-01-31 06:28] LABS: HEMATOCRIT 28.3 % (35.0-46.0); MEAN CELL VOLUME 86.1 FL (80.0-100.0); MEAN CORPUSCULAR HEMOGLOBIN 28.4 PG (27.0-34.0); PLATELET COUNT 97 TH/MM3 (150-450); RED BLOOD COUNT 3.28 MIL/MM3 (4.00-5.30); RED CELL DISTRIBUTION WIDTH 18.6 % (11.6-17.2); WHITE BLOOD COUNT 8.4 TH/MM3 (4.0-11.0)
[2017-01-31 06:29] LABS: REVIEW FLAG FINAL
[2017-01-31 06:46] LABS: BICARBONATE 25.7 MEQ/L (21.0-32.0); MAGNESIUM 1.6 MG/DL (1.5-2.5); POTASSIUM 3.5 MEQ/L (3.5-5.1)
[2017-01-31 07:05] LABS: CALCIUM-PROTEIN CORRECTED 8.3 MG/DL (8.5-10.1)
[2017-01-31] MEDS: DOCUSATE SODIUM 50 MG/SENNA 8.6 MG TAB PO SCH ×2 (09:00→20:12)
[2017-01-31] MEDS: MULTIVITAMIN INJ 10 ML, THIAMINE INJ 100 MG, FOLIC ACID INJ 1 MG in SODIUM CHLORID 0.9%... IV SCH (09:45)
--- NOTE | 2017-01-31 13:36 | HHI.GIFU ---
Subjective Remarks Pt feeling better today. Abdominal pain is mild. US of gallbladder shows a small polyp. Otherwise normal. Pt has no further bleeding. I have discontinued the Protonix and Octreotide drips. She is probably ready to transfer to floor. I have ordered full liquid diet. Objective Vitals I&O Vital Signs Date Time Temp Pulse Resp B/P Pulse Ox O2 Delivery O2 Flow Rate FiO2 01/31/17 12:00 97.7 01/31/17 09:00 65 14 128/73 99 01/31/17 08:00 97.9 75 14 108/74 98 01/31/17 07:56 99 01/31/17 07:00 67 12 105/62 95 01/31/17 06:40 14 01/31/17 06:16 14 01/31/17 06:00 68 01/31/17 04:00 72 01/31/17 04:00 98.9 72 28 124/71 98 01/31/17 02:00 71 01/31/17 00:00 98.2 72 15 120/66 97 01/31/17 00:00 72 01/30/17 22:00 74 01/30/17 21:27 99 21 01/30/17 20:00 73 01/30/17 20:00 99.4 73 13 147/86 100 01/30/17 19:53 16 01/30/17 18:00 77 26 118/67 98 01/30/17 17:00 79 28 109/64 100 01/30/17 16:00 98.4 82 17 110/64 98 01/30/17 15:00 79 22 126/78 100 01/30/17 14:12 71 22 114/71 100 I/O 01/30/17 01/30/17 01/30/17 01/31/17 01/31/17 01/31/17 07:00 15:00 23:00 07:00 15:00 23:00 Intake Total 2796 ml 2570 ml 853 ml Output Total 704 ml 250 ml Balance 2092 ml -250 ml 2570 ml 853 ml Intake Oral 360 ml 360 ml 240 ml IV Total 2436 ml 2210 ml 613 ml Output Urine Total 704 ml 250 ml # Voids 12 3 # Bowel Movements 2 5 Laboratory Laboratory Tests Test 01/30/17 01/31/17 14:31 06:04 Prothrombin Time 13.6 Prothromb Time International 1.2 Ratio White Blood Count 8.4 Red Blood Count 3.28 Hemoglobin 9.3 Hematocrit 28.3 Mean Corpuscular Volume 86.1 Mean Corpuscular Hemoglobin 28.4 Mean Corpuscular Hemoglobin 33.0 Concent Red Cell Distribution Width 18.6 Platelet Count 97 Mean Platelet Volume 8.0 Sodium Level 139 Potassium Level 3.5 Chloride Level 105 Carbon Dioxide Level 25.7 Anion Gap 8 Blood Urea Nitrogen 5 Creatinine 0.43 Estimat Glomerular Filtration 156 Rate Random Glucose 112 Calcium Level 7.2 Protein Corrected Calcium 8.3 Phosphorus Level 1.6 Magnesium Level 1.6 Total Protein 5.0 Date/Time Procedure Status Source Growth 01/28/17 23:35 Aerobic Blood Culture - Preliminary Resulted Blood Peripheral NO GROWTH IN 3 DAYS 01/28/17 23:35 Anaerobic Blood Culture - Preliminary Resulted Blood Peripheral NO GROWTH IN 3 DAYS Physical Exam HEENT: PERRL; normocephalic; atraumatic; no jaundice. CHEST: CTA CARDIAC: RRR ABDOMEN: diffusely Tender with guarding but worse in RUQ EXTREMITIES: No clubbing, cyanosis, or edema. SKIN: Normal; no rash; no jaundice. RAYON TESTER: No focal deficits; alert and oriented times three. Assessment and Plan Plan ASSESSMENT - GI bleed, hemtemesis with esophageal varices on CT. s/p EGD 4 bands applied, active bleeding. Hgb relatively stable, s/p transfusion - Abdominal pain with guarding, elev LFTs- mild elevation, AST 50, ALT 21, ALP 145, NH 41, Tbil 0.7 on admission. Rule out Acute cholecystitis. Plan: - DC octreotide and protonix drips. Protonix 40 IV bid. - full liquid diet. Transfer to the floor. Rufino Brar MD Jan 31, 2017 13:36
[2017-01-31] MEDS: PANTOPRAZOLE SODIUM 40 MG VIAL IV PUSH SCH ×2 (14:53→20:12)
--- NOTE | 2017-01-31 16:29 | HHI.PR ---
Subjective Interval History Alert, oriented, complaining of some pain along the IV line over the right upper extremity, breathing better, no abdominal pain, eating well Review of Systems Constitutional Constitutional Remarks As detailed above, 10 systems reviewed and otherwise negative Vitals/Results Intake & Output 01/30/17 01/30/17 01/31/17 15:00 23:00 07:00 Intake Total 2570 ml 853 ml Output Total 250 ml Balance -250 ml 2570 ml 853 ml Intake Oral 360 ml 240 ml IV Total 2210 ml 613 ml Output Urine Total 250 ml # Voids 12 3 # Bowel Movements 5 Vital Signs Vital Signs Date Time Temp Pulse Resp B/P Pulse Ox O2 Delivery O2 Flow Rate FiO2 01/31/17 12:00 97.7 01/31/17 11:28 20 01/31/17 10:30 18 01/31/17 09:00 65 14 128/73 99 01/31/17 08:00 97.9 75 14 108/74 98 01/31/17 07:56 99 01/31/17 07:00 67 12 105/62 95 01/31/17 06:00 68 01/31/17 04:00 72 01/31/17 04:00 98.9 72 28 124/71 98 01/31/17 02:00 71 01/31/17 00:00 98.2 72 15 120/66 97 01/31/17 00:00 72 01/30/17 22:00 74 01/30/17 21:27 99 21 01/30/17 20:00 73 01/30/17 20:00 99.4 73 13 147/86 100 01/30/17 19:53 16 01/30/17 18:00 77 26 118/67 98 01/30/17 17:00 79 28 109/64 100 CBC/BMP: 01/31/17 0604 01/31/17 0604 Lab Results Laboratory Tests Test 01/31/17 06:04 White Blood Count 8.4 TH/MM3 Red Blood Count 3.28 MIL/MM3 Hemoglobin 9.3 GM/DL Hematocrit 28.3 % Mean Corpuscular Volume 86.1 FL Mean Corpuscular Hemoglobin 28.4 PG Mean Corpuscular Hemoglobin 33.0 % Concent Red Cell Distribution Width 18.6 % Platelet Count 97 TH/MM3 Mean Platelet Volume 8.0 FL Sodium Level 139 MEQ/L Potassium Level 3.5 MEQ/L Chloride Level 105 MEQ/L Carbon Dioxide Level 25.7 MEQ/L Anion Gap 8 MEQ/L Blood Urea Nitrogen 5 MG/DL Creatinine 0.43 MG/DL Estimat Glomerular Filtration 156 ML/MIN Rate Random Glucose 112 MG/DL Calcium Level 7.2 MG/DL Protein Corrected Calcium 8.3 MG/DL Phosphorus Level 1.6 MG/DL Magnesium Level 1.6 MG/DL Total Protein 5.0 GM/DL Physical Exam General General Appearance: Comfortable, Anxious, Malnourished Eyes Eye Exam: Pupils Reactive Ears & Nose Ears & Nose Exam: Auditory Canals Normal Neck Neck Exam: Trachea Midline Pulmonary Resp Exam: Breath Sounds Equal Cardiology CV Exam: Normal Sinus Rhythm, Good Perfusion Gastrointestinal/Abdomen GI Exam: Non-Tender, Bowel Sounds Present Genitourinary Exam: Flank Non-Tender Musculoskeletal MS Exam: Normal Tone, Good Strength Integumentary Skin Exam: Warm, Dry Extremeties Extremities Exam: No Edema Neurologic Neuro Exam: Alert, Awake, Oriented, Speech Clear, Moving All Extremities, Workers Compensation Analyst Equal, No Focal Deficits Psychiatric Psych Exam: Appropriate Responses VTE Prophylaxis VTE Prophylaxis Device: SCDs Assessment/Plan Problem List: (1) Early hemorrhagic shock (2) Upper GI bleed (3) Acute blood loss anemia (4) Lactic acidosis (5) Elevated INR (6) Coagulopathy (7) Tachycardia (8) Hypokalemia (9) Hypernatremia (10) Colitis (11) Transaminitis (12) Alcohol dependence (13) Liver cirrhosis (14) Esophagitis (15) Gastritis Assessment/Plan Assessment Admitted with coffee-ground emesis Hemorrhagic shock Sepsis on admission 2 units of packed red blood cells given. Esophageal varices Status post EGD with banding x4 history of liver cirrhosis, alcohol dependence, hypertension, asthma, hysterectomy, back fusion, quit tobacco 2 days prior to admission. Management Transfer to telemetry Follow hemoglobin level keep above 8 Follow electrolytes and replace as needed Follow renal function Ambulate Continue Protonix Octreotide discontinued Discussed with patient Discussed with nurse Problem Qualifiers (1) Alcohol dependence: (2) Liver cirrhosis: (3) Gastritis: Jonas Harmon MD Jan 31, 2017 16:29
[2017-01-31] MEDS ORDERED: POTASSIUM PHOSPHATE INJ 30 MMOL in SODIUM CHLOR 0.9% 250 ML INJ 250 ML IV ONE (17:00)
[2017-02-01] VITALS (8 sets, daily range): BP systolic 100–124; BP diastolic 68–79; PULSE 56–88; RESP 16–20; TEMP 97.7–98.9; O2SAT 96–100
[2017-02-01] MEDS: MORPHINE SULFATE 4 MG/ML INJ IV PRN ×5 (00:42→21:35)
[2017-02-01] MEDS: metroNIDAZOLE 500 MG INJ 100 ML IV SCH ×3 (01:00→18:52)
[2017-02-01] MEDS: CHLORHEXIDINE GLUCONATE 2 % 1 PACK (2 CLOTHS) TOP SCH (03:23)
[2017-02-01] MEDS: PANTOPRAZOLE SODIUM 40 MG VIAL IV PUSH SCH ×2 (08:46→20:34)
[2017-02-01] MEDS: DOCUSATE SODIUM 50 MG/SENNA 8.6 MG TAB PO SCH (08:47)
[2017-02-01 08:50] LABS: AUTOMATED NEUTROPHIL # 5.1 TH/MM3 (1.8-7.7); BASOPHIL % 0.6 % (0.0-2.0); EOSINOPHIL # 0.3 TH/MM3 (0-0.4); EOSINOPHIL % 3.7 % (0.0-4.0); HEMATOCRIT 28.7 % (35.0-46.0); HEMO FLAGS DIFF FINAL; LYMPH % 18.6 % (9.0-44.0); LYMPHOCYTE # 1.4 TH/MM3 (1.0-4.8); MEAN CELL VOLUME 85.9 FL (80.0-100.0); MEAN CORPUSCULAR HEMOGLOBIN 28.3 PG (27.0-34.0); MONO % 11.1 % (0.0-8.0); PLATELET COUNT 109 TH/MM3 (150-450); RED BLOOD COUNT 3.34 MIL/MM3 (4.00-5.30); RED CELL DISTRIBUTION WIDTH 18.5 % (11.6-17.2); WHITE BLOOD COUNT 7.8 TH/MM3 (4.0-11.0)
[2017-02-01 09:26] LABS: BICARBONATE 26.7 MEQ/L (21.0-32.0); POTASSIUM 3.3 MEQ/L (3.5-5.1)
[2017-02-01 09:47] LABS: CALCIUM-PROTEIN CORRECTED 8.3 MG/DL (8.5-10.1)
[2017-02-01] MEDS: MULTIVITAMIN INJ 10 ML, THIAMINE INJ 100 MG, FOLIC ACID INJ 1 MG in SODIUM CHLORID 0.9%... IV SCH (10:04)
--- NOTE | 2017-02-01 11:08 | HHI.PR ---
Subjective Subjective Remarks Patient's resting in bed Alert oriented, mild anxiety over her hospital stay Tolerating clear liquids is hoping for food today Afebrile (Itzel Valdez) Review of Systems Constitutional Constitutional: Fatigue, Weakness Constitutional Remarks 10 point ROS done positives noted (Itzel Valdez) Pulmonary Respiratory: Coughing (occasional), Shortness of Breath (exertional only) ( Itzel Valdez) GI/Abdomen GI/Abdominal Exam: Nausea (subsided), Vomiting (none), Diarrhea (stools are loose requesting no stool softeners), Abdominal Pain (improved) (Itzel Valdez) Musculoskeletal MS: Weakness (generalized) (Itzel Valdez) Neurologic Neurologic: Dizziness (yesterday when up) (Itzel Valdez) Psychiatric Psychiatric: Normal Mood, Anxiety (Itzel Valdez) Vitals/Results Intake & Output 01/31/17 01/31/17 02/01/17 15:00 23:00 07:00 Intake Total 1320 ml 405 ml Balance 1320 ml 405 ml Intake Oral 720 ml 240 ml IV Total 600 ml 165 ml # Voids 4 1 # Bowel Movements 2 0 Vital Signs Vital Signs Date Time Temp Pulse Resp B/P Pulse Ox O2 Delivery O2 Flow Rate FiO2 02/01/17 08:00 97.7 56 18 121/78 96 02/01/17 05:28 18 02/01/17 04:00 98.4 69 18 120/79 97 02/01/17 04:00 Room Air 02/01/17 00:00 98.2 66 16 124/79 98 02/01/17 00:00 Room Air 01/31/17 21:43 94 01/31/17 21:00 98.0 60 16 138/78 100 01/31/17 18:00 59 12 130/87 100 01/31/17 17:00 78 16 126/81 100 01/31/17 16:00 97.7 90 15 135/91 100 01/31/17 15:00 65 20 126/83 100 01/31/17 14:00 90 15 100 01/31/17 13:00 70 17 130/80 100 01/31/17 12:00 97.7 01/31/17 12:00 65 27 123/76 99 01/31/17 11:28 20 (Itzel Valdez) CBC/BMP: 02/01/17 0734 02/01/17 0734 Lab Results Laboratory Tests Test 02/01/17 07:34 White Blood Count 7.8 TH/MM3 Red Blood Count 3.34 MIL/MM3 Hemoglobin 9.5 GM/DL Hematocrit 28.7 % Mean Corpuscular Volume 85.9 FL Mean Corpuscular Hemoglobin 28.3 PG Mean Corpuscular Hemoglobin 33.0 % Concent Red Cell Distribution Width 18.5 % Platelet Count 109 TH/MM3 Mean Platelet Volume 7.9 FL Neutrophils (%) (Auto) 66.0 % Lymphocytes (%) (Auto) 18.6 % Monocytes (%) (Auto) 11.1 % Eosinophils (%) (Auto) 3.7 % Basophils (%) (Auto) 0.6 % Neutrophils # (Auto) 5.1 TH/MM3 Lymphocytes # (Auto) 1.4 TH/MM3 Monocytes # (Auto) 0.9 TH/MM3 Eosinophils # (Auto) 0.3 TH/MM3 Basophils # (Auto) 0.0 TH/MM3 CBC Comment DIFF FINAL Differential Comment Sodium Level 138 MEQ/L Potassium Level 3.3 MEQ/L Chloride Level 103 MEQ/L Carbon Dioxide Level 26.7 MEQ/L Anion Gap 8 MEQ/L Blood Urea Nitrogen 2 MG/DL Creatinine 0.49 MG/DL Estimat Glomerular Filtration 134 ML/MIN Rate Random Glucose 137 MG/DL Calcium Level 7.3 MG/DL Protein Corrected Calcium 8.3 MG/DL Phosphorus Level 3.0 MG/DL Magnesium Level 2.0 MG/DL Total Protein 5.3 GM/DL Imaging Remarks Last Impressions Gall Bladder Ultrasound 01/30/17 0000 Signed Impressions: Service Date/Time: Monday, January 30, 2017 21:50 - CONCLUSION: 1. Fatty liver. No biliary ductal dilatation. Small gallbladder polyp. No free fluid. Ángel Farr MD Abdomen/Pelvis CT 01/29/17 0000 Signed Impressions: Service Date/Time: Sunday, January 29, 2017 01:18 - CONCLUSION: 1. Cirrhosis and portal hypertension. 2. Colitis. 3. Gallbladder sludge versus tiny stones. Santi Loo MD ([place],Itzel M. LIVESTOCK PRODUCER) Physical Exam General General Appearance: Comfortable, Anxious, Malnourished Appearance Remarks Slim body stature (Shahla Valdezan M. LIVESTOCK PRODUCER) Eyes Eye Exam: Pupils Reactive (Shahla Valdezan M. LIVESTOCK PRODUCER) Ears & Nose Ears & Nose Exam: Auditory Canals Normal ([place] pierre[place] M. LIVESTOCK PRODUCER) Throat Throat Exam: Oral Mucosa [place] & Moist (pale) ([place],Itzel M. LIVESTOCK PRODUCER) Neck Neck Exam: Trachea Midline (Courtney,Susan M. LIVESTOCK PRODUCER) Pulmonary Resp Exam: Breath Sounds Equal ([place],Itzel M. LIVESTOCK PRODUCER) Cardiology CV Exam: Normal Sinus Rhythm, Good Perfusion (Courtney,Itzel M. LIVESTOCK PRODUCER) Gastrointestinal/Abdomen GI Exam: Non-Tender, Bowel Sounds Present ([place],Itzel M. LIVESTOCK PRODUCER) Genitourinary Exam: Flank Non-Tender ([place],Itzel M. LIVESTOCK PRODUCER) Musculoskeletal MS Exam: Joints Intact, Normal Tone, Good Strength ([place],Itzel M. LIVESTOCK PRODUCER) Integumentary Skin Exam: Warm, Dry ([place],Itzel M. LIVESTOCK PRODUCER) Extremeties Extremities Exam: No Edema ([place],Itzel M. LIVESTOCK PRODUCER) Neurologic Neuro Exam: Alert, Awake, Oriented, Speech Clear, Moving All Extremities, Linter Saw Sharpener Equal, No Focal Deficits ([place],Itzel M. LIVESTOCK PRODUCER) Psychiatric Psych Exam: Appropriate Responses (Shahla Valdezan M. LIVESTOCK PRODUCER) VTE Prophylaxis VTE Prophylaxis Device: SCDs ([place],Susan M. LIVESTOCK PRODUCER) Assessment/Plan Problem List: (1) Early hemorrhagic shock (2) Upper GI bleed (3) Acute blood loss anemia (4) Lactic acidosis (5) Elevated INR (6) Coagulopathy (7) Tachycardia (8) Hypokalemia (9) Hypernatremia (10) Colitis (11) Transaminitis (12) Alcohol dependence (13) Liver cirrhosis (14) Esophagitis (15) Gastritis Assessment/Plan Vital signs reviewed, normal trends for now Labs reviewed, anemia hemoglobin holding at 9.3, INR noted 1.2, hypokalemia, added 20 mEq of by mouth potassium Ultrasound gallbladder showed small polyp, Bowel regimen, stools are loose, hold stool softeners Will check labs in the morning GI bleed, coffee-ground emesis Hemorrhagic shock Transitioned out of the intensive care yesterday evening, tolerating clear liquids without nausea or vomiting, hungry for food, will follow up with GI for diet to be increased for regular diet, soft foods Continue telemetry, monitor labs and maintain hemoglobin greater than 8, labs monitored and replace electrolytes as needed, continue with IV multivitamins Warm compress applied to some mild erythema from IV site right upper forearm, Sepsis IV fluids antibiotic therapy, sepsis has resolved , and tinea monitor labs with special attention to any leukocytosis Esophageal varices Status post banding 4, 48 hours ago. No further active bleeding noted, continue to monitor labs with special attention to hemoglobin and hematocrit history of liver cirrhosis with alcohol dependence, Patient states that she only drinks wine at this time has quit drinking hard liquor and beer. States that she has had no issues for approximately one year up until now with GI bleed hypertension, medical management, controlled blood pressure for now asthma, No acute shortness of breath, COPD probable with tobacco use Tobacco abuse, educated for abstinence and quality of life Acute on chronic pain management, medications as prescribed Discussed with patient and her significant other Supportive care Discussed with Dr. Harmon, seen on his behalf Discussed with nurse, okay to feed if okay with GI (Itzel Valdez) Assessment/Plan seen, examined by myself, Dr Harmon, today Discussed with patient, she is much improved Discussed with mid level provider We will transfer service to Dr. Ledezma The exam, history, and the medical decision-making described in the above note were completed with the assistance of the mid-level provider. I reviewed the findings presented. I attest that I had a [id number] encounter with the patient on the same day, and personally performed and documented my assessment and findings in the medical record. (Jonas Harmon MD) Problem Qualifiers (1) Alcohol dependence: (2) Liver cirrhosis: (3) Gastritis: Itzel Valdez Feb 01, 2017 11:08 Jonas Harmon MD Feb 01, 2017 19:53
[2017-02-01] MEDS: SODIUM CHLORIDE 0.9% FLUSH 10 ML FLUSH IVF PRN (12:44)
[2017-02-01] MEDS ORDERED: POTASSIUM CHLORIDE 20 MEQ CONTROLLED RELEASE TAB PO ONE (12:45)
--- NOTE | 2017-02-01 16:30 | HHI.GIFU ---
Subjective Remarks Pt resting in bed. c/o bloating, gas. + flatus. Having dark loose stools. NO red blood in stool or vomiting. Asking for food. Objective Vitals I&O Vital Signs Date Time Temp Pulse Resp B/P Pulse Ox O2 Delivery O2 Flow Rate FiO2 02/01/17 12:48 98 21 02/01/17 12:00 97.9 80 18 121/73 99 02/01/17 09:00 97 Room Air 02/01/17 08:00 97.7 56 18 121/78 96 02/01/17 05:28 18 02/01/17 04:00 98.4 69 18 120/79 97 02/01/17 04:00 Room Air 02/01/17 00:00 98.2 66 16 124/79 98 02/01/17 00:00 Room Air 01/31/17 21:43 94 01/31/17 21:00 98.0 60 16 138/78 100 01/31/17 18:00 59 12 130/87 100 01/31/17 17:00 78 16 126/81 100 I/O 01/31/17 01/31/17 01/31/17 02/01/17 02/01/17 02/01/17 07:00 15:00 23:00 07:00 15:00 23:00 Intake Total 853 ml 1320 ml 405 ml Balance 853 ml 1320 ml 405 ml Intake Oral 240 ml 720 ml 240 ml IV Total 613 ml 600 ml 165 ml # Voids 3 4 1 # Bowel Movements 2 0 Laboratory Laboratory Tests Test 02/01/17 07:34 White Blood Count 7.8 Red Blood Count 3.34 Hemoglobin 9.5 Hematocrit 28.7 Mean Corpuscular Volume 85.9 Mean Corpuscular Hemoglobin 28.3 Mean Corpuscular Hemoglobin 33.0 Concent Red Cell Distribution Width 18.5 Platelet Count 109 Mean Platelet Volume 7.9 Neutrophils (%) (Auto) 66.0 Lymphocytes (%) (Auto) 18.6 Monocytes (%) (Auto) 11.1 Eosinophils (%) (Auto) 3.7 Basophils (%) (Auto) 0.6 Neutrophils # (Auto) 5.1 Lymphocytes # (Auto) 1.4 Monocytes # (Auto) 0.9 Eosinophils # (Auto) 0.3 Basophils # (Auto) 0.0 CBC Comment DIFF FINAL Differential Comment Sodium Level 138 Potassium Level 3.3 Chloride Level 103 Carbon Dioxide Level 26.7 Anion Gap 8 Blood Urea Nitrogen 2 Creatinine 0.49 Estimat Glomerular Filtration 134 Rate Random Glucose 137 Calcium Level 7.3 Protein Corrected Calcium 8.3 Phosphorus Level 3.0 Magnesium Level 2.0 Total Protein 5.3 Date/Time Procedure Status Source Growth 01/28/17 23:35 Aerobic Blood Culture - Preliminary Resulted Blood Peripheral NO GROWTH IN 4 DAYS 01/28/17 23:35 Anaerobic Blood Culture - Preliminary Resulted Blood Peripheral NO GROWTH IN 4 DAYS Imaging Last Impressions Gall Bladder Ultrasound 01/30/17 0000 Signed Impressions: Service Date/Time: Monday, January 30, 2017 21:50 - CONCLUSION: 1. Fatty liver. No biliary ductal dilatation. Small gallbladder polyp. No free fluid. Ángel Farr MD Abdomen/Pelvis CT 01/29/17 0000 Signed Impressions: Service Date/Time: Sunday, January 29, 2017 01:18 - CONCLUSION: 1. Cirrhosis and portal hypertension. 2. Colitis. 3. Gallbladder sludge versus tiny stones. Santi Loo MD Physical Exam HEENT: PERRL; normocephalic; atraumatic; no jaundice. CHEST: CTA CARDIAC: RRR ABDOMEN: lower abd TTP EXTREMITIES: No clubbing, cyanosis, or edema. SKIN: Normal; no rash; no jaundice. HOUSEKEEPER SUPERVISOR: No focal deficits; alert and oriented times three. Assessment and Plan Plan ASSESSMENT - GI bleed, hemtemesis with esophageal varices on CT. s/p EGD 4 bands applied, active bleeding. Hgb relatively stable, s/p transfusion - Abdominal pain with guarding, elev LFTs- mild elevation, AST 50, ALT 21, ALP 145, NH 41, Tbil 0.7 on admission. US GB- fatty liver, no biliary ductal dilatation, small GB polyp, no free fluid Plan: - rck LFTs - cont protonix IV - reg diet soft food ok - monitor labs This pt seen by Dr Brar and myself and this note is written on his behalf Alejandra Borja Feb 01, 2017 16:29
[2017-02-01] MEDS: cefTRIAXone INJ 2,000 MG in SODIUM CHLORIDE 0.9% INJ 100 ML IV SCH (23:29)
[2017-02-02] VITALS (10 sets, daily range): BP systolic 102–148; BP diastolic 57–73; PULSE 60–75; RESP 18–20; TEMP 97.5–98.6; O2SAT 95–100
[2017-02-02] MEDS: metroNIDAZOLE 500 MG INJ 100 ML IV SCH ×3 (01:14→18:00)
[2017-02-02] MEDS: MORPHINE SULFATE 4 MG/ML INJ IV PRN ×4 (02:47→20:44)
[2017-02-02] MEDS: CHLORHEXIDINE GLUCONATE 2 % 1 PACK (2 CLOTHS) TOP SCH (03:30)
[2017-02-02] MEDS: PANTOPRAZOLE SODIUM 40 MG VIAL IV PUSH SCH ×2 (08:41→20:44)
[2017-02-02 09:49] LABS: AUTOMATED NEUTROPHIL # 5.9 TH/MM3 (1.8-7.7); BASOPHIL # 0.1 TH/MM3 (0-0.2); BASOPHIL % 0.7 % (0.0-2.0); EOSINOPHIL # 0.3 TH/MM3 (0-0.4); EOSINOPHIL % 3.6 % (0.0-4.0); HEMATOCRIT 29.3 % (35.0-46.0); HEMO FLAGS DIFF FINAL; LYMPH % 16.9 % (9.0-44.0); LYMPHOCYTE # 1.5 TH/MM3 (1.0-4.8); MEAN CORPUSCULAR HEMOGLOBIN 28.7 PG (27.0-34.0); MEAN CORPUSCULAR HGB CONC 33.4 % (32.0-36.0); MONO % 10.9 % (0.0-8.0); NEUT % 67.9 % (16.0-70.0); PLATELET COUNT 110 TH/MM3 (150-450); RED BLOOD COUNT 3.41 MIL/MM3 (4.00-5.30); RED CELL DISTRIBUTION WIDTH 18.7 % (11.6-17.2); WHITE BLOOD COUNT 8.6 TH/MM3 (4.0-11.0)
--- NOTE | 2017-02-02 09:55 | HHI.PR ---
Subjective History of Present Illness patient eating feel weak and tired no acute issue d/w . low potassium resolved. Review of Systems Constitutional Constitutional: Fatigue, Weakness Pulmonary Respiratory: Coughing (occasional) GI/Abdomen GI/Abdominal Exam: Nausea (subsided), Vomiting (none), Diarrhea (stools are loose requesting no stool softeners), Abdominal Pain (improved) Musculoskeletal MS: Weakness (generalized) Neurologic Neurologic: Dizziness (yesterday when up) Psychiatric Psychiatric: Normal Mood, Anxiety Vitals/Results Intake & Output 02/01/17 02/01/17 02/02/17 15:00 23:00 07:00 Intake Total 960 ml 480 ml 1365 ml Balance 960 ml 480 ml 1365 ml Intake Oral 960 ml 480 ml 1080 ml IV Total 285 ml # Voids 3 2 5 # Bowel Movements 1 2 Vital Signs Vital Signs Date Time Temp Pulse Resp B/P Pulse Ox O2 Delivery O2 Flow Rate FiO2 02/02/17 08:00 97.5 62 18 111/59 97 02/02/17 04:00 Room Air 02/02/17 04:00 98.1 66 20 107/73 99 02/02/17 00:00 Room Air 02/02/17 00:00 98.1 75 20 110/63 99 02/01/17 20:35 Room Air 02/01/17 20:00 98.9 67 20 100/68 99 02/01/17 20:00 72 02/01/17 16:00 97.8 67 18 117/70 100 02/01/17 12:48 98 21 02/01/17 12:00 97.9 80 18 121/73 99 CBC/BMP: 02/02/17 0834 02/01/17 0734 Lab Results Laboratory Tests Test 02/02/17 08:34 White Blood Count 8.6 TH/MM3 Red Blood Count 3.41 MIL/MM3 Hemoglobin 9.8 GM/DL Hematocrit 29.3 % Mean Corpuscular Volume 86.0 FL Mean Corpuscular Hemoglobin 28.7 PG Mean Corpuscular Hemoglobin 33.4 % Concent Red Cell Distribution Width 18.7 % Platelet Count 110 TH/MM3 Mean Platelet Volume 8.4 FL Neutrophils (%) (Auto) 67.9 % Lymphocytes (%) (Auto) 16.9 % Monocytes (%) (Auto) 10.9 % Eosinophils (%) (Auto) 3.6 % Basophils (%) (Auto) 0.7 % Neutrophils # (Auto) 5.9 TH/MM3 Lymphocytes # (Auto) 1.5 TH/MM3 Monocytes # (Auto) 0.9 TH/MM3 Eosinophils # (Auto) 0.3 TH/MM3 Basophils # (Auto) 0.1 TH/MM3 CBC Comment DIFF FINAL Differential Comment Physical Exam General General Appearance: Comfortable, Anxious, Malnourished Eyes Eye Exam: Pupils Reactive Ears & Nose Ears & Nose Exam: Auditory Canals Normal Throat Throat Exam: Oral Mucosa [place] & Moist (pale) Neck Neck Exam: Trachea Midline Pulmonary Resp Exam: Breath Sounds Equal Cardiology CV Exam: Normal Sinus Rhythm, Good Perfusion Gastrointestinal/Abdomen GI Exam: Non-Tender, Bowel Sounds Present Genitourinary Exam: Flank Non-Tender Musculoskeletal MS Exam: Joints Intact, Normal Tone, Good Strength Integumentary Skin Exam: Warm, Dry Extremeties Extremities Exam: No Edema Neurologic Neuro Exam: Alert, Awake, Oriented, Speech Clear, Moving All Extremities, Hospice Music Therapist Equal, No Focal Deficits Psychiatric Psych Exam: Appropriate Responses VTE Prophylaxis VTE Prophylaxis Device: SCDs Assessment/Plan Problem List: (1) Early hemorrhagic shock (2) Upper GI bleed (3) Acute blood loss anemia (4) Lactic acidosis (5) Elevated INR (6) Coagulopathy (7) Tachycardia (8) Hypokalemia (9) Hypernatremia (10) Colitis (11) Transaminitis (12) Alcohol dependence (13) Liver cirrhosis (14) Esophagitis (15) Gastritis Assessment/Plan ASSESSMENT AND PLAN 1. GI bleed with hemorrhagic shock...s/p endoscopy. 2. Anemia 3. Hypokalemia.. resolved 4. Colitis with diarrhea checking C- Diff 5. ETOH abuse. 6. Portal hypertension. 7. Psoriasis. Plan is to follow her medical management and course of treatment. She had an imaging study, abdomen and pelvic CT where gallbladder sludge was seen. We will continue to monitor her labs and any symptoms during this hospital stay. We will check her CMP and CBC with diff in the morning. We will monitor her vital sign . The patient has just begun taking solid food today. We will monitor her nutrition and any symptoms of nausea, vomiting or increased pain. . She has been seen per gastroenterology who will continue to follow her until she is stable. The patient is full code, full aggressive care. We will work towards increasing her activity and if she remains stable, C-difficile is pending. The patient is voiding without any issues. She is taking p.o. fluids well. discontinued her IV fluids. Discussed Condition with: Patient Problem Qualifiers (1) Alcohol dependence: (2) Liver cirrhosis: (3) Gastritis: Pablo Ledezma MD Feb 02, 2017 09:54
[2017-02-02 10:19] LABS: BICARBONATE 24.3 MEQ/L (21.0-32.0); POTASSIUM 3.5 MEQ/L (3.5-5.1)
[2017-02-02 10:22] LABS: INDIRECT BILIRUBIN 0.4 MG/DL (0.0-0.8); TOTAL BILIRUBIN ADULT 0.6 MG/DL (0.2-1.0)
[2017-02-02] MEDS: MULTIVITAMIN INJ 10 ML, THIAMINE INJ 100 MG, FOLIC ACID INJ 1 MG in SODIUM CHLORID 0.9%... IV SCH (11:41)
--- NOTE | 2017-02-02 16:48 | HHI.GIFU ---
Subjective Remarks Resting in bed. States she is feeling better. Tolerating diet. No n/v. She has been having dark stools, but states they are starting to lighten up. Objective Vitals I&O Vital Signs Date Time Temp Pulse Resp B/P Pulse Ox O2 Delivery O2 Flow Rate FiO2 02/02/17 15:07 98 21 02/02/17 09:00 99 Room Air 02/02/17 09:00 60 02/02/17 08:00 97.5 62 18 111/59 97 02/02/17 04:00 Room Air 02/02/17 04:00 98.1 66 20 107/73 99 02/02/17 00:00 Room Air 02/02/17 00:00 98.1 75 20 110/63 99 02/01/17 20:35 Room Air 02/01/17 20:00 98.9 67 20 100/68 99 02/01/17 20:00 72 I/O 02/01/17 02/01/17 02/01/17 02/02/17 02/02/17 02/02/17 07:00 15:00 23:00 07:00 15:00 23:00 Intake Total 405 ml 960 ml 480 ml 1365 ml Balance 405 ml 960 ml 480 ml 1365 ml Intake Oral 240 ml 960 ml 480 ml 1080 ml IV Total 165 ml 285 ml # Voids 1 3 2 5 # Bowel Movements 0 1 2 Laboratory Laboratory Tests Test 02/02/17 08:34 White Blood Count 8.6 Red Blood Count 3.41 Hemoglobin 9.8 Hematocrit 29.3 Mean Corpuscular Volume 86.0 Mean Corpuscular Hemoglobin 28.7 Mean Corpuscular Hemoglobin 33.4 Concent Red Cell Distribution Width 18.7 Platelet Count 110 Mean Platelet Volume 8.4 Neutrophils (%) (Auto) 67.9 Lymphocytes (%) (Auto) 16.9 Monocytes (%) (Auto) 10.9 Eosinophils (%) (Auto) 3.6 Basophils (%) (Auto) 0.7 Neutrophils # (Auto) 5.9 Lymphocytes # (Auto) 1.5 Monocytes # (Auto) 0.9 Eosinophils # (Auto) 0.3 Basophils # (Auto) 0.1 CBC Comment DIFF FINAL Differential Comment Sodium Level 135 Potassium Level 3.5 Chloride Level 103 Carbon Dioxide Level 24.3 Anion Gap 8 Blood Urea Nitrogen 2 Creatinine 0.46 Estimat Glomerular Filtration 144 Rate Random Glucose 118 Calcium Level 7.6 Total Bilirubin 0.6 Direct Bilirubin 0.2 Indirect Bilirubin 0.4 Aspartate Amino Transf 22 (AST/SGOT) Alanine Aminotransferase 15 (ALT/SGPT) Alkaline Phosphatase 142 Total Protein 5.4 Albumin 2.3 Date/Time Procedure Status Source Growth 01/28/17 23:35 Aerobic Blood Culture - Final Complete Blood Peripheral NO GROWTH IN 5 DAYS 01/28/17 23:35 Anaerobic Blood Culture - Final Complete Blood Peripheral NO GROWTH IN 5 DAYS Imaging Last Impressions Gall Bladder Ultrasound 01/30/17 0000 Signed Impressions: Service Date/Time: Monday, January 30, 2017 21:50 - CONCLUSION: 1. Fatty liver. No biliary ductal dilatation. Small gallbladder polyp. No free fluid. Ángel Farr MD Abdomen/Pelvis CT 01/29/17 0000 Signed Impressions: Service Date/Time: Sunday, January 29, 2017 01:18 - CONCLUSION: 1. Cirrhosis and portal hypertension. 2. Colitis. 3. Gallbladder sludge versus tiny stones. Santi Loo MD Physical Exam HEENT: Normocephalic; atraumatic; no jaundice. CHEST: CTA CARDIAC: RRR ABDOMEN: Abdomen soft, mild lower abdominal tenderness, bowel sounds EXTREMITIES: No clubbing, cyanosis, or edema. SKIN: Normal; no rash; no jaundice. MATERIAL ASSEMBLER: No focal deficits; alert and oriented times three. Assessment and Plan Plan ASSESSMENT - GI bleed, hemtemesis with esophageal varices on CT. S/P EGD with band ligation (01/29/17)---> Esophageal barices with active bleeding during the procedure, banding x 4. No bleeding after banding. Will need repeat EGD with banding in 4 weeks. S/P 2 units PRBC. HH stable 9.8/29.3. Protonix. - Abdominal pain. Abdomen/Pelvis CT (01/29/17)----> 1. Cirrhosis and portal hypertension. 2. Colitis. 3. Gallbladder sludge versus tiny stones. Gall Bladder Ultrasound (01/30/17)---> 1. Fatty liver. No biliary ductal dilatation. Small gallbladder polyp. No free fluid. IMPROVED. Mild lower abdominal tenderness- states sore from retching. - Elevated LFTs with liver cirrhosis/portal htn secondary to ETOH use. States she quite drinking regularly about a year ago, but still occasionally has a beer or glass of wine. D/W patient importance of complete etoh cessation, verbalizes understanding. LFTs stable T. Bili 0.6, AST 22, ALT 15, Alk Phosph 142. Plan: - Heart healthy diet - Cont. Protonix. - Monitor labs - No NSAIDS - No ETOH - Rpt. EGD with band ligation 4 weeks - FU GABRIELA 2 weeks - This pt seen by Dr Brar and myself and this note is written on his behalf Eunice Mccormick Feb 02, 2017 16:47
[2017-02-02] MEDS: SODIUM CHLORIDE 0.9% FLUSH 10 ML FLUSH IVF PRN (20:45)
[2017-02-02] MEDS: cefTRIAXone INJ 2,000 MG in SODIUM CHLORIDE 0.9% INJ 100 ML IV SCH (23:40)
[2017-02-03] VITALS (12 sets, daily range): BP systolic 95–134; BP diastolic 54–73; PULSE 66–87; RESP 16–20; TEMP 97.4–98.3; O2SAT 97–99
[2017-02-03] MEDS: metroNIDAZOLE 500 MG INJ 100 ML IV SCH ×3 (00:54→18:00)
[2017-02-03] MEDS: CHLORHEXIDINE GLUCONATE 2 % 1 PACK (2 CLOTHS) TOP SCH (02:25)
[2017-02-03] MEDS: MORPHINE SULFATE 4 MG/ML INJ IV PRN ×6 (02:25→22:31)
[2017-02-03 07:11] LABS: AUTOMATED NEUTROPHIL # 5.5 TH/MM3 (1.8-7.7); BASOPHIL # 0.1 TH/MM3 (0-0.2); BASOPHIL % 0.7 % (0.0-2.0); EOSINOPHIL # 0.3 TH/MM3 (0-0.4); EOSINOPHIL % 4.1 % (0.0-4.0); HEMATOCRIT 28.4 % (35.0-46.0); HEMO FLAGS DIFF FINAL; LYMPH % 17.7 % (9.0-44.0); LYMPHOCYTE # 1.5 TH/MM3 (1.0-4.8); MEAN CELL VOLUME 86.7 FL (80.0-100.0); MEAN CORPUSCULAR HGB CONC 33.5 % (32.0-36.0); MONO % 12.2 % (0.0-8.0); NEUT % 65.3 % (16.0-70.0); PLATELET COUNT 112 TH/MM3 (150-450); RED BLOOD COUNT 3.27 MIL/MM3 (4.00-5.30); RED CELL DISTRIBUTION WIDTH 18.2 % (11.6-17.2); WHITE BLOOD COUNT 8.5 TH/MM3 (4.0-11.0)
[2017-02-03 07:27] LABS: ANION GAP 7 MEQ/L (5-15); BICARBONATE 26.1 MEQ/L (21.0-32.0); BLOOD UREA NITROGEN 3 MG/DL (7-18); CHLORIDE 107 MEQ/L (98-107); GLOMERULAR FILTRATION RATE 170 ML/MIN (>89); POTASSIUM 3.6 MEQ/L (3.5-5.1); SODIUM (NA) 140 MEQ/L (136-145)
[2017-02-03 07:29] LABS: ALT (GPT) 14 U/L (10-53); AST (GOT) 19 U/L (15-37)
[2017-02-03 07:30] LABS: ALKALINE PHOSPHATASE 136 U/L (45-117); TOTAL BILIRUBIN ADULT 0.5 MG/DL (0.2-1.0)
[2017-02-03] MEDS: SODIUM CHLORIDE 0.9% FLUSH 10 ML FLUSH IVF PRN ×3 (08:52→22:32)
[2017-02-03] MEDS: PANTOPRAZOLE SODIUM 40 MG VIAL IV PUSH SCH ×2 (08:52→19:58)
[2017-02-03] MEDS: MULTIVITAMIN INJ 10 ML, THIAMINE INJ 100 MG, FOLIC ACID INJ 1 MG in SODIUM CHLORID 0.9%... IV SCH (10:16)
--- NOTE | 2017-02-03 11:16 | HHI.PR ---
Subjective History of Present Illness patient eating feel weak and tired still have diarrhea C- Diff pending.. . c/o vaginal yeast infection while on antibiotic will give Diflucan Review of Systems Constitutional Constitutional: Fatigue, Weakness Pulmonary Respiratory: Coughing (occasional) GI/Abdomen GI/Abdominal Exam: Nausea (subsided), Vomiting (none), Diarrhea (stools are loose requesting no stool softeners), Abdominal Pain (improved) Musculoskeletal MS: Weakness (generalized) Neurologic Neurologic: Dizziness (yesterday when up) Psychiatric Psychiatric: Normal Mood, Anxiety Vitals/Results Intake & Output 02/02/17 02/02/17 02/03/17 14:59 22:59 06:59 Intake Total 960 ml 720 ml 676 ml Balance 960 ml 720 ml 676 ml Intake Oral 960 ml 600 ml 480 ml IV Total 120 ml 196 ml # Voids 2 7 4 # Bowel Movements 1 0 0 Vital Signs Vital Signs Date Time Temp Pulse Resp B/P Pulse Ox O2 Delivery O2 Flow Rate FiO2 02/03/17 11:06 78 02/03/17 08:13 78 02/03/17 08:00 98.0 66 16 101/57 98 02/03/17 07:45 Room Air 02/03/17 04:00 98.2 67 16 95/54 99 02/03/17 00:00 98.3 69 20 126/73 99 02/02/17 20:15 74 02/02/17 20:15 Room Air 02/02/17 20:00 98.6 73 20 102/57 95 02/02/17 17:48 99 21 02/02/17 16:00 98.5 63 18 148/70 100 02/02/17 15:07 98 21 02/02/17 12:00 98.2 65 18 111/70 100 CBC/BMP: 02/03/17 0531 02/03/17 0531 Lab Results Laboratory Tests Test 02/03/17 05:31 White Blood Count 8.5 TH/MM3 Red Blood Count 3.27 MIL/MM3 Hemoglobin 9.5 GM/DL Hematocrit 28.4 % Mean Corpuscular Volume 86.7 FL Mean Corpuscular Hemoglobin 29.0 PG Mean Corpuscular Hemoglobin 33.5 % Concent Red Cell Distribution Width 18.2 % Platelet Count 112 TH/MM3 Mean Platelet Volume 8.8 FL Neutrophils (%) (Auto) 65.3 % Lymphocytes (%) (Auto) 17.7 % Monocytes (%) (Auto) 12.2 % Eosinophils (%) (Auto) 4.1 % Basophils (%) (Auto) 0.7 % Neutrophils # (Auto) 5.5 TH/MM3 Lymphocytes # (Auto) 1.5 TH/MM3 Monocytes # (Auto) 1.0 TH/MM3 Eosinophils # (Auto) 0.3 TH/MM3 Basophils # (Auto) 0.1 TH/MM3 CBC Comment DIFF FINAL Differential Comment Sodium Level 140 MEQ/L Potassium Level 3.6 MEQ/L Chloride Level 107 MEQ/L Carbon Dioxide Level 26.1 MEQ/L Anion Gap 7 MEQ/L Blood Urea Nitrogen 3 MG/DL Creatinine 0.40 MG/DL Estimat Glomerular Filtration 170 ML/MIN Rate Random Glucose 103 MG/DL Calcium Level 7.6 MG/DL Total Bilirubin 0.5 MG/DL Aspartate Amino Transf 19 U/L (AST/SGOT) Alanine Aminotransferase 14 U/L (ALT/SGPT) Alkaline Phosphatase 136 U/L Total Protein 5.4 GM/DL Albumin 2.4 GM/DL Physical Exam General General Appearance: No Acute Distress, Comfortable, Anxious, Malnourished Eyes Eye Exam: Pupils Reactive, Sclera White, Extraocular Movement Intact Ears & Nose Ears & Nose Exam: Auditory Canals Normal Throat Throat Exam: Oral Mucosa [place] & Moist (pale) Neck Neck Exam: Trachea Midline Pulmonary Resp Exam: Breath Sounds Equal Cardiology CV Exam: Normal Sinus Rhythm, Good Perfusion Gastrointestinal/Abdomen GI Exam: Non-Tender, Bowel Sounds Present Genitourinary Exam: Flank Non-Tender Musculoskeletal MS Exam: Joints Intact, Normal Tone, Good Strength Integumentary Skin Exam: Warm, Dry Extremeties Extremities Exam: No Edema Neurologic Neuro Exam: Alert, Awake, Oriented, Speech Clear, Moving All Extremities, Dredge Lever Operator Equal, No Focal Deficits Psychiatric Psych Exam: Appropriate Responses VTE Prophylaxis VTE Prophylaxis Device: SCDs Assessment/Plan Problem List: (1) Early hemorrhagic shock (2) Upper GI bleed (3) Acute blood loss anemia (4) Lactic acidosis (5) Elevated INR (6) Coagulopathy (7) Tachycardia (8) Hypokalemia (9) Hypernatremia (10) Colitis (11) Transaminitis (12) Alcohol dependence (13) Liver cirrhosis (14) Esophagitis (15) Gastritis Assessment/Plan ASSESSMENT AND PLAN 1. GI bleed with hemorrhagic shock...s/p endoscopy. 2. Anemia 3. Hypokalemia.. resolved 4. Colitis with diarrhea checking C- Diff 5. ETOH abuse. 6. Cirrhosis and Portal hypertension. 7. Psoriasis. 8. Gall Bladder sludge verses tiny stone. 9. GI bleed, hemtemesis with esophageal varices on CT. S/P EGD with band ligation (01/29/17)---> Esophageal barices with active bleeding during the procedure, banding x 4. No bleeding after banding. Will need repeat EGD with banding in 4 weeks. S/P 2 units PRBC. HH stable on Protonix. 10. Fatty liver. No biliary ductal dilatation. Small gallbladder polyp. No free fluid. IMPROVED. Mild lower abdominal tenderness- states sore from retching. 11. - Elevated LFTs with liver cirrhosis/portal htn secondary to ETOH use. States she quite drinking regularly about a year ago, but still occasionally has a beer or glass of wine. D/W patient importance of complete ETOH cessation, verbalizes understanding. LFTs stable Plan is to follow her medical management and course of treatment. She had an imaging study, abdomen and pelvic CT where gallbladder sludge was seen. We will continue to monitor her labs and any symptoms during this hospital stay. We will check her CMP and CBC with diff in the morning. We will monitor her vital sign . The patient has just begun taking solid food today. We will monitor her nutrition and any symptoms of nausea, vomiting or increased pain. . She has been seen per gastroenterology who will continue to follow her until she is stable. The patient is full code, full aggressive care. We will work towards increasing her activity and if she remains stable, C-difficile is pending. The patient is voiding without any issues. Check CBC with Diff CMP in AM. Discussed Condition with: Patient Problem Qualifiers (1) Alcohol dependence: (2) Liver cirrhosis: (3) Gastritis: Pablo Ledezma MD Feb 03, 2017 11:16
[2017-02-03] MEDS ORDERED: FLUCONAZOLE 100 MG TAB PO ONE (13:45)
[2017-02-03] MEDS ORDERED: PILL SPLITTER OTHER PRN (13:45)
--- NOTE | 2017-02-03 15:09 | HHI.GIFU ---
Subjective Remarks Pt resting in bed, visiting with friend. No bleeding. She really wants a chocolate chip cookie. She is having loose stool which she has had since admission. (Alejandra Borja) Remarks patient was seen and examined, agree with above note, we will sign of from GI pls call us if noeeded. (Vijay Cummins MD) Objective Vitals I&O Vital Signs Date Time Temp Pulse Resp B/P Pulse Ox O2 Delivery O2 Flow Rate FiO2 02/03/17 14:03 78 02/03/17 12:52 87 02/03/17 12:00 98.2 70 16 106/69 97 02/03/17 11:06 78 02/03/17 08:13 78 02/03/17 08:00 98.0 66 16 101/57 98 02/03/17 07:45 Room Air 02/03/17 04:00 98.2 67 16 95/54 99 02/03/17 00:00 98.3 69 20 126/73 99 02/02/17 20:15 74 02/02/17 20:15 Room Air 02/02/17 20:00 98.6 73 20 102/57 95 02/02/17 17:48 99 21 02/02/17 16:00 98.5 63 18 148/70 100 02/02/17 15:07 98 21 I/O 02/02/17 02/02/17 02/02/17 02/03/17 02/03/17 02/03/17 07:00 15:00 23:00 07:00 15:00 23:00 Intake Total 1365 ml 960 ml 720 ml 676 ml 1000 ml Balance 1365 ml 960 ml 720 ml 676 ml 1000 ml Intake Oral 1080 ml 960 ml 600 ml 480 ml IV Total 285 ml 120 ml 196 ml 1000 ml # Voids 5 2 7 4 # Bowel Movements 2 1 0 0 Laboratory Laboratory Tests Test 02/03/17 05:31 White Blood Count 8.5 Red Blood Count 3.27 Hemoglobin 9.5 Hematocrit 28.4 Mean Corpuscular Volume 86.7 Mean Corpuscular Hemoglobin 29.0 Mean Corpuscular Hemoglobin 33.5 Concent Red Cell Distribution Width 18.2 Platelet Count 112 Mean Platelet Volume 8.8 Neutrophils (%) (Auto) 65.3 Lymphocytes (%) (Auto) 17.7 Monocytes (%) (Auto) 12.2 Eosinophils (%) (Auto) 4.1 Basophils (%) (Auto) 0.7 Neutrophils # (Auto) 5.5 Lymphocytes # (Auto) 1.5 Monocytes # (Auto) 1.0 Eosinophils # (Auto) 0.3 Basophils # (Auto) 0.1 CBC Comment DIFF FINAL Differential Comment Sodium Level 140 Potassium Level 3.6 Chloride Level 107 Carbon Dioxide Level 26.1 Anion Gap 7 Blood Urea Nitrogen 3 Creatinine 0.40 Estimat Glomerular Filtration 170 Rate Random Glucose 103 Calcium Level 7.6 Total Bilirubin 0.5 Aspartate Amino Transf 19 (AST/SGOT) Alanine Aminotransferase 14 (ALT/SGPT) Alkaline Phosphatase 136 Total Protein 5.4 Albumin 2.4 Imaging Last Impressions Gall Bladder Ultrasound 01/30/17 0000 Signed Impressions: Service Date/Time: Monday, January 30, 2017 21:50 - CONCLUSION: 1. Fatty liver. No biliary ductal dilatation. Small gallbladder polyp. No free fluid. Ángel Farr MD Abdomen/Pelvis CT 01/29/17 0000 Signed Impressions: Service Date/Time: Sunday, January 29, 2017 01:18 - CONCLUSION: 1. Cirrhosis and portal hypertension. 2. Colitis. 3. Gallbladder sludge versus tiny stones. Santi Loo MD Physical Exam HEENT: Normocephalic; atraumatic; no jaundice. CHEST: CTA CARDIAC: RRR ABDOMEN: Abdomen soft, nontender, bowel sounds EXTREMITIES: No clubbing, cyanosis, or edema. SKIN: Normal; no rash; no jaundice. SUPERVISOR FEED MILL: No focal deficits; alert and oriented times three. (Alejandra Borja [facility]) Assessment and Plan Plan ASSESSMENT - GI bleed, hemtemesis with esophageal varices on CT. S/P EGD with band ligation (01/29/17)---> Esophageal barices with active bleeding during the procedure, banding x 4. No bleeding after banding. Will need repeat EGD with banding in 4 weeks. S/P 2 units PRBC. HH stable Protonix. - Abdominal pain. Abdomen/Pelvis CT (01/29/17)----> 1. Cirrhosis and portal hypertension. 2. Colitis. 3. Gallbladder sludge versus tiny stones. Gall Bladder Ultrasound (01/30/17)---> 1. Fatty liver. No biliary ductal dilatation. Small gallbladder polyp. No free fluid. IMPROVED. Mild lower abdominal tenderness- states sore from retching. - Elevated LFTs with liver cirrhosis/portal htn secondary to ETOH use. States she quite drinking regularly about a year ago, but still occasionally has a beer or glass of wine. D/W patient importance of complete etoh cessation, verbalizes understanding. LFTs stable Plan: - Heart healthy diet - Cont. Protonix. - Monitor labs - No NSAIDS - No ETOH - Rpt. EGD with band ligation 4 weeks - FU GABRIELA 2 weeks - GI will sign off, please reconsult if needed - This pt seen by Dr Cummins and myself and this note is written on his behalf (Alejandra Borja) Alejandra Borja Feb 03, 2017 15:09 Vijay Cummins MD Feb 03, 2017 16:47
[2017-02-03] MEDS: NYSTATIN 100,000 UNIT/GM CREAM 15 GM TOPICAL SCH (17:22)
[2017-02-03] MEDS: cefTRIAXone INJ 2,000 MG in SODIUM CHLORIDE 0.9% INJ 100 ML IV SCH (22:34)
[2017-02-04] VITALS: BP 113/67; PULSE 74; RESP 18; TEMP 98.1; O2SAT 98
[2017-02-04] MEDS: metroNIDAZOLE 500 MG INJ 100 ML IV SCH ×2 (01:52→08:17)
[2017-02-04 04:00] VITALS: BP 108/65; PULSE 70; RESP 18; TEMP 97.8; O2SAT 98
[2017-02-04] MEDS: CHLORHEXIDINE GLUCONATE 2 % 1 PACK (2 CLOTHS) TOP SCH (04:00)
[2017-02-04] MEDS: MORPHINE SULFATE 4 MG/ML INJ IV PRN ×2 (05:08→11:03)
[2017-02-04] MEDS: SODIUM CHLORIDE 0.9% FLUSH 10 ML FLUSH IVF PRN (05:09)
[2017-02-04 08:00] VITALS: BP 102/61; PULSE 68; RESP 18; TEMP 97.3; O2SAT 98
[2017-02-04] MEDS: PANTOPRAZOLE SODIUM 40 MG VIAL IV PUSH SCH (08:16)
[2017-02-04] MEDS: NYSTATIN 100,000 UNIT/GM CREAM 15 GM TOPICAL SCH (08:17)
[2017-02-04] MEDS: MULTIVITAMIN INJ 10 ML, THIAMINE INJ 100 MG, FOLIC ACID INJ 1 MG in SODIUM CHLORID 0.9%... IV SCH (09:00)
[2017-02-04 09:20] VITALS: PULSE 78
[2017-02-04 10:30] VITALS: PULSE 82
--- NOTE | 2017-02-04 11:23 | HHI.PR ---
Subjective History of Present Illness patient eating feel weak and tired still have diarrhea C- Diff pending.. . c/o vaginal yeast infection while on antibiotic will give Diflucan Review of Systems Constitutional Constitutional: Fatigue, Weakness Pulmonary Respiratory: Coughing (occasional) GI/Abdomen GI/Abdominal Exam: Nausea (subsided), Vomiting (none), Diarrhea (stools are loose requesting no stool softeners), Abdominal Pain (improved) Musculoskeletal MS: Weakness (generalized) Neurologic Neurologic: Dizziness (yesterday when up) Psychiatric Psychiatric: Normal Mood, Anxiety Vitals/Results Intake & Output 02/03/17 02/03/17 02/04/17 14:59 22:59 06:59 Intake Total 1720 ml 480 ml 240 ml Output Total 100 ml 2 ml Balance 1720 ml 380 ml 238 ml Intake Oral 720 ml 480 ml 240 ml IV Total 1000 ml Output Urine Total 100 ml 2 ml # Voids 3 # Bowel Movements 2 1 Vital Signs Vital Signs Date Time Temp Pulse Resp B/P Pulse Ox O2 Delivery O2 Flow Rate FiO2 02/04/17 10:30 82 02/04/17 09:20 78 02/04/17 08:00 97.3 68 18 102/61 98 02/04/17 07:57 Room Air 02/04/17 04:00 97.8 70 18 108/65 98 02/04/17 00:00 Room Air 02/04/17 00:00 98.1 74 18 113/67 98 02/03/17 20:00 70 02/03/17 20:00 Room Air 02/03/17 20:00 98.0 71 16 120/61 98 02/03/17 18:29 84 02/03/17 16:15 84 02/03/17 16:00 97.4 69 18 134/63 98 02/03/17 14:03 78 02/03/17 12:52 87 02/03/17 12:00 98.2 70 16 106/69 97 CBC/BMP: 02/03/17 0531 02/03/17 0531 Physical Exam General General Appearance: No Acute Distress, Comfortable, Anxious, Malnourished Eyes Eye Exam: Pupils Reactive, Sclera White, Extraocular Movement Intact Ears & Nose Ears & Nose Exam: Auditory Canals Normal Throat Throat Exam: Oral Mucosa [place] & Moist (pale) Neck Neck Exam: Trachea Midline Pulmonary Resp Exam: Breath Sounds Equal Cardiology CV Exam: Normal Sinus Rhythm, Good Perfusion Gastrointestinal/Abdomen GI Exam: Non-Tender, Bowel Sounds Present Genitourinary Exam: Flank Non-Tender Musculoskeletal MS Exam: Joints Intact, Normal Tone, Good Strength Integumentary Skin Exam: Warm, Dry Extremeties Extremities Exam: No Edema Neurologic Neuro Exam: Alert, Awake, Oriented, Speech Clear, Moving All Extremities, Grape Picker Equal, No Focal Deficits Psychiatric Psych Exam: Appropriate Responses VTE Prophylaxis VTE Prophylaxis Device: SCDs Assessment/Plan Problem List: (1) Early hemorrhagic shock (2) Upper GI bleed (3) Acute blood loss anemia (4) Lactic acidosis (5) Elevated INR (6) Coagulopathy (7) Tachycardia (8) Hypokalemia (9) Hypernatremia (10) Colitis (11) Transaminitis (12) Alcohol dependence (13) Liver cirrhosis (14) Esophagitis (15) Gastritis Assessment/Plan ASSESSMENT AND PLAN 1. GI bleed with hemorrhagic shock...s/p endoscopy. 2. Anemia 3. Hypokalemia.. resolved 4. Colitis with diarrhea checking C- Diff 5. ETOH abuse. 6. Cirrhosis and Portal hypertension. 7. Psoriasis. 8. Gall Bladder sludge verses tiny stone. 9. GI bleed, hemtemesis with esophageal varices on CT. S/P EGD with band ligation (01/29/17)---> Esophageal barices with active bleeding during the procedure, banding x 4. No bleeding after banding. Will need repeat EGD with banding in 4 weeks. S/P 2 units PRBC. HH stable on Protonix. 10. Fatty liver. No biliary ductal dilatation. Small gallbladder polyp. No free fluid. IMPROVED. Mild lower abdominal tenderness- states sore from retching. 11. - Elevated LFTs with liver cirrhosis/portal htn secondary to ETOH use. States she quite drinking regularly about a year ago, but still occasionally has a beer or glass of wine. D/W patient importance of complete ETOH cessation, verbalizes understanding. LFTs stable Plan is to follow her medical management and course of treatment. She had an imaging study, abdomen and pelvic CT where gallbladder sludge was seen. We will continue to monitor her labs and any symptoms during this hospital stay. We will check her CMP and CBC with diff in the morning. We will monitor her vital sign . The patient has just begun taking solid food today. We will monitor her nutrition and any symptoms of nausea, vomiting or increased pain. . She has been seen per gastroenterology who will continue to follow her until she is stable. The patient is full code, full aggressive care. We will work towards increasing her activity and if she remains stable, C-difficile is pending. The patient is voiding without any issues. Check CBC with Diff CMP in AM. Problem Qualifiers (1) Alcohol dependence: (2) Liver cirrhosis: (3) Gastritis: Pablo Ledezma MD Feb 04, 2017 11:23
[2017-02-04] MEDS ORDERED: PANT40P IV PUSH (11:24)
[2017-02-04] MEDS ORDERED: OMEP40CA2 PO (11:30)
--- NOTE | 2017-02-04 11:34 | HHI.PR ---
Subjective History of Present Illness patient eating well feel better diarrhea resolved ... . c/o vaginal yeast infection while on antibiotic s/p Diflucan 150 mg PO X 1. ok to DC Per GI Review of Systems GI/Abdomen GI/Abdominal Exam: Diarrhea (stools are loose requesting no stool softeners) Musculoskeletal MS: Weakness (generalized) Neurologic Neurologic: Dizziness (yesterday when up) Psychiatric Psychiatric: Normal Mood, Anxiety Vitals/Results Intake & Output 02/03/17 02/03/17 02/04/17 14:59 22:59 06:59 Intake Total 1720 ml 480 ml 240 ml Output Total 100 ml 2 ml Balance 1720 ml 380 ml 238 ml Intake Oral 720 ml 480 ml 240 ml IV Total 1000 ml Output Urine Total 100 ml 2 ml # Voids 3 # Bowel Movements 2 1 Vital Signs Vital Signs Date Time Temp Pulse Resp B/P Pulse Ox O2 Delivery O2 Flow Rate FiO2 02/04/17 10:30 82 02/04/17 09:20 78 02/04/17 08:00 97.3 68 18 102/61 98 02/04/17 07:57 Room Air 02/04/17 04:00 97.8 70 18 108/65 98 02/04/17 00:00 Room Air 02/04/17 00:00 98.1 74 18 113/67 98 02/03/17 20:00 70 02/03/17 20:00 Room Air 02/03/17 20:00 98.0 71 16 120/61 98 02/03/17 18:29 84 02/03/17 16:15 84 02/03/17 16:00 97.4 69 18 134/63 98 02/03/17 14:03 78 02/03/17 12:52 87 02/03/17 12:00 98.2 70 16 106/69 97 CBC/BMP: 02/03/17 0531 02/03/17 0531 Physical Exam General General Appearance: No Acute Distress, Comfortable, Anxious, Malnourished Eyes Eye Exam: Pupils Reactive, Sclera White, Extraocular Movement Intact Ears & Nose Ears & Nose Exam: Auditory Canals Normal Throat Throat Exam: Oral Mucosa [place] & Moist (pale), Oral Pharynx Normal Neck Neck Exam: Trachea Midline Pulmonary Resp Exam: Breath Sounds Equal Cardiology CV Exam: Normal Sinus Rhythm, Good Perfusion Gastrointestinal/Abdomen GI Exam: Non-Tender, Bowel Sounds Present Genitourinary Exam: Flank Non-Tender Musculoskeletal MS Exam: Joints Intact, Normal Tone, Good Strength Integumentary Skin Exam: Warm, Dry Extremeties Extremities Exam: No Edema Neurologic Neuro Exam: Alert, Awake, Oriented, Speech Clear, Moving All Extremities, Cleaner [place] Presser Equal, No Focal Deficits Psychiatric Psych Exam: Appropriate Responses VTE Prophylaxis VTE Prophylaxis Device: SCDs PUD Prophylasis PUD Prophylaxis: Protonix Assessment/Plan Problem List: (1) Early hemorrhagic shock (2) Upper GI bleed (3) Acute blood loss anemia (4) Lactic acidosis (5) Elevated INR (6) Coagulopathy (7) Tachycardia (8) Hypokalemia (9) Hypernatremia (10) Colitis (11) Transaminitis (12) Alcohol dependence (13) Liver cirrhosis (14) Esophagitis (15) Gastritis Assessment/Plan ASSESSMENT AND PLAN 1. GI bleed with hemorrhagic shock...s/p endoscopy. 2. Anemia 3. Hypokalemia.. resolved 4. Colitis with diarrhea checking C- Diff 5. ETOH abuse. 6. Cirrhosis and Portal hypertension. 7. Psoriasis. 8. Gall Bladder sludge verses tiny stone. 9. GI bleed, hemtemesis with esophageal varices on CT. S/P EGD with band ligation (01/29/17)---> Esophageal barices with active bleeding during the procedure, banding x 4. No bleeding after banding. Will need repeat EGD with banding in 4 weeks. S/P 2 units PRBC. HH stable on Protonix. 10. Fatty liver. No biliary ductal dilatation. Small gallbladder polyp. No free fluid. IMPROVED. Mild lower abdominal tenderness- states sore from retching. 11. - Elevated LFTs with liver cirrhosis/portal htn secondary to ETOH use. States she quite drinking regularly about a year ago, but still occasionally has a beer or glass of wine. D/W patient importance of complete ETOH cessation, verbalizes understanding. LFTs stable Plan is to follow her medical management and course of treatment. She had an imaging study, abdomen and pelvic CT where gallbladder sludge was seen. We will continue to monitor her labs and any symptoms during this hospital stay. We will monitor her vital sign . The patient has just begun taking solid food today. We will monitor her nutrition and any symptoms of nausea, vomiting or increased pain. . She has been seen per gastroenterology who will continue to follow her until she is stable. The patient is full code, full aggressive care. We will work towards increasing her activity and if she remains stable, The patient is voiding without any issues. ok to DC Per GI. ok to DC Home today. f/u with PCP/ GI 1 week. Discussed Condition with: Patient Problem Qualifiers (1) Alcohol dependence: (2) Liver cirrhosis: (3) Gastritis: Pablo Ledezma MD Feb 04, 2017 11:34
[2017-02-04] MEDS ORDERED: NYST15T TOPICAL (11:54)
[2017-02-04 12:00] VITALS: BP 113/69; PULSE 79; RESP 18; TEMP 98.1; O2SAT 98
== END 2017-02-04 12:28 | disposition home or self-care (01) | DRG 871 ==
LOC: NEPE 23:21 → NEDA 01-29 01:00 → HIMN 01-29 04:10 → N04A 01-31 20:52
PROVIDERS: ADMIT Specialist; ATTEND Specialist
PROC: 30253N1 (ICD-10-PCS; 2017-01-29)
PROC: 06L34CZ Occlusion of Esophageal Vein with Extraluminal Device, Percutaneous Endoscopic Approach (ICD-10-PCS; principal; 2017-01-29 08:17)
DX: A41.9 Sepsis, unspecified organism (principal); R65.21 Severe sepsis with septic shock; I85.11 Secondary esophageal varices with bleeding; E87.2 Acidosis; K92.0 Hematemesis; E87.0 Hyperosmolality and hypernatremia; R18.8 Other ascites; K76.6 Portal hypertension; D62 Acute posthemorrhagic anemia; E83.51 Hypocalcemia; B37.3 Candidiasis of vulva and vagina; E87.6 Hypokalemia; I10 Essential (primary) hypertension; K70.30 Alcoholic cirrhosis of liver without ascites; F10.20 Alcohol dependence, uncomplicated; G89.4 Chronic pain syndrome; R10.13 Epigastric pain; K29.70 Gastritis, unspecified, without bleeding; K20.9 Esophagitis, unspecified; J45.909 Unspecified asthma, uncomplicated; K52.9 Noninfective gastroenteritis and colitis, unspecified; K82.4 Cholesterolosis of gallbladder; L40.9 Psoriasis, unspecified; Y90.1 Blood alcohol level of 20-39 mg/100 ml; Z87.11 Personal history of peptic ulcer disease; F41.9 Anxiety disorder, unspecified; F17.200 Nicotine dependence, unspecified, uncomplicated
CPT/HCPCS: 36430; 74177; 76705; 80048; 80053; 80076; 80307; 82140; 83605; 83690; 83735; 84100; 84155; 85014; 85018; 85025; 85027; 85384; 85610; 85730; 86850; 86900; 86901; 86920; 87040; 87641; 93005; 96374; 96375; C9113; J0610; J0696; J1170; J2175; J2270; J2354; J2405; J3010; J3411; J3430; J3475; J3480; J7030; J7040; J7050; P9016; Q9967

== ENCOUNTER 2017-10-27 18:37 | Inpatient (IN) | payer SELFPAY ==
[~2017-10-27] VITALS: Ht 170.2 cm; Wt 58.3 kg
[~2017-10-27 18:37] MED LIST changes: -BACL20TA PO; -FERR325T PO; -FOLI1TAB4 PO; -FURO40TA PO; -NICO7DIS2 T-DERMAL; +NYST15T TOPICAL; +OMEP40CA2 PO; +OXYC1TAB36 PO; -PANT40TA3 PO; -SPIR50TA PO; -THIA100T PO; -TRAZ50TA12 PO
[2017-10-27 18:44] VITALS: BP 92/55; PULSE 116; RESP 18; TEMP 98.2; O2SAT 98
[2017-10-27] MEDS ORDERED: SODIUM CHLORIDE 0.9% FLUSH 10 ML FLUSH IVF PRN ×2 (19:00→20:00)
[2017-10-27 19:11] VITALS: RESP 20; O2SAT 100
[2017-10-27 19:42] LABS: AUTOMATED NEUTROPHIL # 9.2 TH/MM3 (1.8-7.7); BASOPHIL # 0.1 TH/MM3 (0-0.2); BASOPHIL % 0.5 % (0.0-2.0); EOSINOPHIL % 0.1 % (0.0-4.0); HEMATOCRIT 22.7 % (35.0-46.0); LYMPH % 21.8 % (9.0-44.0); MEAN CELL VOLUME 80.1 FL (80.0-100.0); MEAN CORPUSCULAR HEMOGLOBIN 24.8 PG (27.0-34.0); MEAN CORPUSCULAR HGB CONC 30.9 % (32.0-36.0); MEAN PLATELET VOLUME 9.3 FL (7.0-11.0); MONO % 10.4 % (0.0-8.0); MONOCYTE # 1.4 TH/MM3 (0-0.9); NEUT % 67.2 % (16.0-70.0); PLATELET COUNT 246 TH/MM3 (150-450); RED BLOOD COUNT 2.83 MIL/MM3 (4.00-5.30); RED CELL DISTRIBUTION WIDTH 22.9 % (11.6-17.2); WHITE BLOOD COUNT 13.7 TH/MM3 (4.0-11.0)
[2017-10-27] MEDS ORDERED: PANTOPRAZOLE INJ 80 MG in SODIUM CHLORIDE 0.9% INJ 35 ML IV ONE (19:59)
[2017-10-27] MEDS ORDERED: SODIUM CHLOR 0.9% 1000 ML INJ 1,000 ML IV SCH (19:59)
[2017-10-27] MEDS ORDERED: ONDANSETRON HCL 4 MG/2 ML VIAL IVP ONE (20:00)
[2017-10-27] MEDS ORDERED: SODIUM CHLOR 0.9% 250 ML INJ 250 ML IV ONE ×2 (20:00→20:30)
[2017-10-27 20:04] LABS: ALBUMIN 2.2 GM/DL (3.4-5.0); ALT (GPT) 41 U/L (10-53); AST (GOT) 100 U/L (15-37); BICARBONATE 25.2 MEQ/L (21.0-32.0); BLOOD UREA NITROGEN 38 MG/DL (7-18); CALCIUM 7.7 MG/DL (8.5-10.1); CHLORIDE 104 MEQ/L (98-107); CREATININE 0.95 MG/DL (0.50-1.00); GLOMERULAR FILTRATION RATE 62 ML/MIN (>89); GLUCOSE,RANDOM 134 MG/DL (74-106); INTERNATIONAL NORMALIZED RATIO 1.6 RATIO; PROTHROMBIN TIME - PATIENT 16.4 SEC (9.8-11.6); SODIUM (NA) 144 MEQ/L (136-145)
[2017-10-27 20:07] LABS: ALKALINE PHOSPHATASE 103 U/L (45-117); TOTAL BILIRUBIN ADULT 1.3 MG/DL (0.2-1.0); TOTAL PROTEIN 5.6 GM/DL (6.4-8.2)
--- NOTE | 2017-10-27 20:14 | PD ---
HPI Chief Complaint: GI Complaint Time Seen by Provider: 19:59 Travel History International Travel<30 days: No Contact w/Intl Traveler<30days: No Traveled to known affect area: No History of Present Illness HPI 52-year-old female presents to the emergency department by EMS transport from home for evaluation of vomiting and diarrhea. Patient has had coffee-ground emesis and melena. Patient has history of alcohol cirrhosis with esophageal varices. Patient is status post previous banding of esophageal varices as recently as January 2017. Patient denies any NSAID use but does admit to drinking alcohol 3 days ago. Patient states symptoms began yesterday and has had syncopal episodes. Patient denies any head injury. Patient denies any falls as her syncopal episodes have been as she has been preparing to sit down for walking and getting into bed. Patient denies any abdominal pain at this time. Patient complains of chronic pain syndrome chronic back pain. Patient states she has been using leftover oxycodone prescription. 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; nursing notes reviewed Asthma: Yes Cardiovascular Problems: No COPD: No Diminished Hearing: No GERD: No Genitourinary: No Hiatal Hernia: No Hypertension: Yes Musculoskeletal: Yes (TRAUMA-OCTOBER 2015, RIGHT LEG/HAND NERVE DAMAGE) Neurologic: No Reproductive: No Respiratory: Yes Immunizations Current: Yes Sleep Apnea: No Ulcer: Yes ?: Not Past Surgical History Gynecologic Surgery: Yes (Hysterectomy-2002) Hysterectomy: Yes Other Surgery: Yes (BACK SURGERY ) Social History Alcohol Use: Yes (1 drink a day) Tobacco Use: No (just quit 2 days ago) Substance Use: No Allergies-Medications (Allergen,Severity, Reaction): Coded Allergies: diclofenac (Unverified Adverse Reaction, Severe, headache, 02/06/17) Reported Meds & Prescriptions Reported Meds & Active Scripts Active Nystatin Topical (Nystatin) 100,000 unit/gm Cream 1 Applic TOPICAL TID Omeprazole 40 Mg Cap 40 Mg PO DAILY Reported Oxycodone-Acetaminophen 10-325 mg Tab 1 Tab PO Q4-6H PRN Review of Systems Except as stated in HPI: all other systems reviewed are Neg General / Constitutional: No: Fever, Chills Eyes: No: Visual changes HENT: Positive: Lightheadedness Cardiovascular: No: Chest Pain or Discomfort Respiratory: Positive: Shortness of Breath Gastrointestinal: Positive: Nausea, Vomiting, Diarrhea, No: Abdominal Pain, Hematemesis (Coffee-ground), Hematochezia (Melena) Genitourinary: No: Flank Pain Musculoskeletal: No: Myalgias, Arthralgias Skin: No Rash Neurologic: Positive: Weakness, Dizziness, Syncope Psychiatric: Positive: Anxiety Hematologic/Lymphatic: Positive: Easy Bruising Physical Exam Narrative GENERAL: Well-developed ill-appearing female in no acute respiratory distress; GCS 15 SKIN: Warm and dry. HEAD: Normocephalic. EYES: No scleral icterus. No injection or drainage. Conjunctival pallor NECK: Supple, trachea midline. No JVD or lymphadenopathy. CARDIOVASCULAR: Increased regular rate and rhythm without murmurs, gallops, or rubs. RESPIRATORY: Breath sounds equal bilaterally. No accessory muscle use. GASTROINTESTINAL: Abdomen soft, non-tender, nondistended. Rectal exam: Normal sphincter tone black stool on exam glove; briskly Hemoccult positive MUSCULOSKELETAL: No cyanosis, or edema. BACK: Nontender without obvious deformity. No CVA tenderness. Data Data Last Documented VS Vital Signs Date Time Temp Pulse Resp B/P (MAP) Pulse Ox O2 Delivery O2 Flow Rate FiO2 10/27/17 19:11 20 100 Room Air 10/27/17 18:44 98.2 116 92/55 (67) Orders Orders Complete Blood Count With Diff (10/27/17 18:57) Comprehensive Metabolic Panel (10/27/17 18:57) Lipase (10/27/17 18:57) Prothrombin Time / Inr (Pt) (10/27/17 18:57) Act Partial Throm Time (Ptt) (10/27/17 18:57) Type And Screen (10/27/17 18:57) Ecg Monitoring (10/27/17 18:57) Iv Access Insert/Monitor (10/27/17 18:57) Oximetry (10/27/17 18:57) Sodium Chloride 0.9% Flush (Ns Flush) (10/27/17 19:00) Ammonia (10/27/17 19:59) Lactic Acid (10/27/17 19:59) Tylenol (Acetaminophen) (10/27/17 19:59) Red Blood Cells (Rbc) (10/27/17 19:59) Sodium Chlor 0.9% 250 Ml Inj (Ns 250 Ml (10/27/17 20:00) Alcohol (Ethanol) (10/27/17 19:59) Ondansetron Inj (Zofran Inj) (10/27/17 20:00) Sodium Chlor 0.9% 1000 Ml Inj (Ns 1000 M (10/27/17 19:59) Sodium Chloride 0.9% Flush (Ns Flush) (10/27/17 20:00) Sodium Chlorid 0.9%... W/Octreotide Inj (10/27/17 19:59) Sodium Chloride 0.9... W/Pantoprazole In (10/27/17 19:59) Sodium Chloride 0.9... W/Pantoprazole In (10/27/17 19:59) Consent (10/27/17 20:22) ^ Other Nursing Orders (10/27/17 20:22) Hgb & Hct (10/27/17 20:23) Blood Product Administration (10/27/17 20:20) Sodium Chlor 0.9% 250 Ml Inj (Ns 250 Ml (10/27/17 20:30) Ceftriaxone Inj (Rocephin Inj) (10/27/17 20:30) Phytonadione Inj (Vitamin K Inj) (10/27/17 20:30) NPO (10/27/17 20:20) Ct Abd/Pel W Iv Contrast(Rout) (10/27/17 ) Admit Order (Ed Use Only) (10/27/17 ) Plate Glass Grinder / Telemetry CAROL.Q8H (10/27/17 20:29) Diet Npo (10/28/17 Breakfast) Activity Bed Rest (10/27/17 20:29) Notify Dr: Other (10/27/17 20:29) Hgb & Hct (10/28/17 13:00) Hgb & Hct (10/28/17 19:00) Hgb & Hct (10/29/17 01:00) Protein Corrected Calcium(Pcc) (10/27/17 21:08) Labs Laboratory Tests Test 10/27/17 19:15 White Blood Count 13.7 TH/MM3 Red Blood Count 2.83 MIL/MM3 Hemoglobin 7.0 GM/DL Hematocrit 22.7 % Mean Corpuscular Volume 80.1 FL Mean Corpuscular Hemoglobin 24.8 PG Mean Corpuscular Hemoglobin Concent 30.9 % Red Cell Distribution Width 22.9 % Platelet Count 246 TH/MM3 Mean Platelet Volume 9.3 FL Neutrophils (%) (Auto) 67.2 % Lymphocytes (%) (Auto) 21.8 % Monocytes (%) (Auto) 10.4 % Eosinophils (%) (Auto) 0.1 % Basophils (%) (Auto) 0.5 % Neutrophils # (Auto) 9.2 TH/MM3 Lymphocytes # (Auto) 3.0 TH/MM3 Monocytes # (Auto) 1.4 TH/MM3 Eosinophils # (Auto) 0.0 TH/MM3 Basophils # (Auto) 0.1 TH/MM3 CBC Comment DIFF FINAL Differential Comment Prothrombin Time 16.4 SEC Prothromb Time International Ratio 1.6 RATIO Activated Partial Thromboplast Time 23.9 SEC Blood Urea Nitrogen 38 MG/DL Creatinine 0.95 MG/DL Random Glucose 134 MG/DL Total Protein 5.6 GM/DL Albumin 2.2 GM/DL Calcium Level 7.7 MG/DL Alkaline Phosphatase 103 U/L Aspartate Amino Transf (AST/SGOT) 100 U/L Alanine Aminotransferase (ALT/SGPT) 41 U/L Total Bilirubin 1.3 MG/DL Sodium Level 144 MEQ/L Potassium Level 3.8 MEQ/L Chloride Level 104 MEQ/L Carbon Dioxide Level 25.2 MEQ/L Anion Gap 15 MEQ/L Estimat Glomerular Filtration Rate 62 ML/MIN Lipase 56 U/L MDM Medical Decision Making Medical Screen Exam Complete: Yes Emergency Medical Condition: Yes Medical Record Reviewed: Yes Interpretation(s) CBC & BMP Diagram 10/27/17 19:15 Total Protein 5.6 L, Albumin 2.2 L, Calcium Level 7.7 L, Alkaline Phosphatase 103, Aspartate Amino Transf (AST/SGOT) 100 H, Alanine Aminotransferase (ALT/SGPT ) 41, Total Bilirubin 1.3 H Last Impressions Abdomen/Pelvis CT 10/27/17 0000 Signed Impressions: Service Date/Time: Friday, October 27, 2017 21:24 - CONCLUSION: 1. Nodular enlarged heterogeneous liver consistent with known cirrhosis. 2. Recanalization of the umbilical vein and esophageal varices consistent with portal hypertension. 3. Cholelithiasis. 4. Minimal sigmoid colon wall thickening suggesting mild colitis. Clinical correlation is recommended. 5. Degenerative changes and scoliosis of the thoracolumbar spine. Alex Montesinos MD Differential Diagnosis Upper GI bleed esophageal bleed cirrhosis hepatic encephalopathy coagulopathy anemia Narrative Course 52-year-old female with known alcohol cirrhosis and esophageal varices presents with 2 days of near syncope and episode of syncope with coffee-ground emesis and melanotic stools. Patient presents by EMS with triage vital signs including heart rate 116 and blood pressure 92/55; patient has received 1 L of normal saline and remains hypotensive; initial hemoglobin of 7.0, platelets 246, 000, INR 1.6; chemistries serum ammonia pending Patient administered additional liter of normal saline Protonix bolus with Protonix infusion and octreotide administration; call placed to GI Discussed patient with Dr. Ochoa to known to the patient aware of endoscopy results from 01/2017 as well as transfusion fluids Protonix and octreotide with INR of 1.6 recommends administration of vitamin K 5 mg subcu as well as Rocephin 2 g IV piggyback and will see in consultation. Call placed to airline customer service agent for admission Critical Care Narrative Aggregate critical care time was 35 minutes. Time to perform other separately billable procedures was not included in the critical care time. My time did not include minutes spent treating any other patients simultaneously or on activities that did not directly contribute to the patient's treatment. The services I provided to this patient were to treat and/or prevent clinically significant deterioration that could result in: Hemorrhagic shock, lactic acidosis, I provided critical care services requiring my management, as noted below: Chart data review, documentation time, medication orders and management, vital sign assessments/reviewing monitor data, ordering and reviewing lab tests, ordering and interpreting/reviewing x-rays and diagnostic studies, care of the patient and discussion of the patient with the admitting physicians. Physician Communication Physician Communication call placed to GI --discussed with Dr Pagan; call placed to intensivists Diagnosis Primary Impression: GI bleed Additional Impressions: Liver cirrhosis Early hemorrhagic shock Admitting Information Admitting Physician Requests: Admit Aurora Stephenson MD October 27, 2017 20:14
[2017-10-27] MEDS ORDERED: PHYTONADIONE 10 MG/ML VIAL SQ ONE (20:30)
[2017-10-27] MEDS ORDERED: cefTRIAXone INJ 2,000 MG in SODIUM CHLORIDE 0.9% INJ 100 ML IV ONE (20:30)
[2017-10-27] MEDS ORDERED: CHLORHEXIDINE GLUCONATE 2 % 1 PACK (2 CLOTHS) TOP PRN (20:45)
[2017-10-27] MEDS ORDERED: LORazepam 1 MG TAB PO PRN (20:45)
[2017-10-27] MEDS ORDERED: SODIUM CHLORIDE 0.9% FLUSH 10 ML FLUSH IV FLUSH PRN ×2 (20:45)
[2017-10-27] MEDS ORDERED: ONDANSETRON HCL 4 MG/2 ML VIAL IV PUSH PRN (20:45)
[2017-10-27] MEDS ORDERED: RESP: ALBUTEROL 2.5 MG/3 ML NEB (PRN) INH (20:45)
[2017-10-27] MEDS ORDERED: FLUMAZENIL 0.5 MG/5 ML VIAL IV PUSH PRN (20:45)
[2017-10-27] MEDS ORDERED: LORazepam 2 MG TAB PO PRN (20:45)
[2017-10-27] MEDS ORDERED: NURSING INFORMATION XX SCH (20:45)
[2017-10-27] MEDS ORDERED: LORazepam 2 MG/ML VIAL IV PUSH PRN ×3 (20:45)
[2017-10-27] MEDS: PANTOPRAZOLE INJ 80 MG in SODIUM CHLORIDE 0.9% INJ 100 ML IV SCH (20:49)
[2017-10-27] MEDS ORDERED: SODIUM CHLORIDE 0.9% FLUSH 10 ML FLUSH IV FLUSH SCH (21:00)
[2017-10-27] MEDS ORDERED: IOHEXOL 350 MG/ML 10 ML VIAL (for RAD DIAG) IVCONTRAST ONE (21:24)
[2017-10-27 21:44] LABS: HEMATOCRIT 19.2 % (35.0-46.0); HEMOGLOBIN 5.8 GM/DL (11.6-15.3)
[2017-10-27 21:45] LABS: CALCIUM 6.9 MG/DL (8.5-10.1)
[2017-10-27 21:46] VITALS: BP 96/50; PULSE 108; RESP 15; TEMP 99.6; O2SAT 99
[2017-10-27 21:51] LABS: ACETAMINOPHEN 7.9 MCG/ML (10.0-30.0)
[2017-10-27 21:52] LABS: CALCIUM-PROTEIN CORRECTED 8.2 MG/DL (8.5-10.1); TOTAL PROTEIN 4.7 GM/DL (6.4-8.2)
[2017-10-27 22:00] VITALS: BP 103/53; PULSE 102; RESP 17; TEMP 98.6; TEMP 99.6; O2SAT 100
[2017-10-27 22:15] VITALS: BP 96/52; PULSE 101; RESP 17; TEMP 99; O2SAT 100
--- NOTE | 2017-10-27 22:22 | RADRPT ---
EXAM DATE/TIME: 10/27/2017 21:24 [facility] COMPARISON: CT ABDOMEN & PELVIS W CONTRAST, January 29, 2017, 1:18. INDICATIONS : Rectal bleeding. IV CONTRAST: 95 cc Omnipaque 350 (iohexol) IV ORAL CONTRAST: No oral contrast ingested. RADIATION DOSE: 4.83 CTDIvol (mGy) MEDICAL HISTORY : Cirrhosis. Hypertension. Asthma SURGICAL HISTORY : Hysterectomy. Fusion, lumbar. ENCOUNTER: Initial ACUITY: 1 day PAIN SCALE: 0/10 LOCATION: abdomen TECHNIQUE: Volumetric scanning of the abdomen and pelvis was performed. Using automated exposure control and ad justment of the mA and/or kV according to patient size, radiation dose was kept as low as reasonably achievable to obtain optimal diagnostic quality images. DICOM format image data is available electro nically for review and comparison. FINDINGS: LOWER LUNGS: The visualized lower lungs are clear. LIVER: The liver is enlarged, nodular in contour and heterogeneous in attenuation consistent with cirrhosis. Recanalization of the umbilical vein is noted. Esophageal varices are also noted. The gallbladder is nondistended and contains multiple calcified gallstones. SPLEEN: Normal size without lesion. PANCREAS: Within normal limits. KIDNEYS: Normal in size and shape. There is no mass, stone or hydronephrosis. ADRENAL GLANDS: Within normal limits. VASCULAR: There is no aortic aneurysm. BOWEL/MESENTERY: Minimal wall thickening involving the sigmoid colon is noted suggesting possible mild colitis. There is no free intraperitoneal air or fluid. The appendix is normal. ABDOMINAL WALL: Within normal limits. RETROPERITONEUM: There is no lymphadenopathy. BLADDER: No wall thickening or mass. REPRODUCTIVE: Within normal limits. INGUINAL: There is no lymphadenopathy or hernia. MUSCULOSKELETAL: Degenerative changes and scoliosis of the thoracolumbar spine are noted. CONCLUSION: 1. Nodular enlarged heterogeneous liver consistent with known cirrhosis. 2. Recanalization of the umbilical vein and esophageal varices consistent with portal hypertension. 3. Cholelithiasis. 4. Minimal sigmoid colon wall thickening suggesting mild colitis. Clinical correlation is recommended . 5. Degenerative changes and scoliosis of the thoracolumbar spine. Alex Montesinos MD on October 27, 2017 at 22:15 Board Certified Radiologist. This report was verified electronically.
[2017-10-27 22:43] VITALS: BP 106/55; PULSE 105; RESP 20; TEMP 98.6; O2SAT 100
--- NOTE | 2017-10-27 23:38 | HHI.HP ---
HPI Service Critical Care Medicine Primary Care Physician Unknown Admission Diagnosis Upper GI bleed; early hemorrhagic shock; h/o cirrhosis/esophageal va Diagnosis: (1) Lactic acidosis Diagnosis: Secondary (2) Alcohol dependence Diagnosis: Secondary (3) Acute blood loss anemia Diagnosis: Principal (4) Coagulopathy Diagnosis: Secondary (5) Elevated INR Diagnosis: Secondary (6) GI bleed Diagnosis: Principal (7) Liver cirrhosis Diagnosis: Secondary (8) Colitis Diagnosis: Secondary (9) Portal hypertension Diagnosis: Secondary Travel History International Travel<30 Days: No Contact w/Intl Traveler <30 Da: No Traveled to Known Affected Are: No History of Present Illness 52-year-old female with past medical history of alcohol dependence, cirrhosis, portal hypertension, esophageal varices with band ligation times . She presents to [facility] emergency department stating she has had coffee-ground emesis. She had one episode of coffee-ground emesis the evening of 10/26/17 and then 3 additional episodes on the evening of admission 10/27 including one episode in the emergency department. She has felt presyncopal. She complains of some cramping and burning pain in her epigastrium. She has had 2 melena BMs today. She has had multiple EGDs in the past. She had EGDs in 2016 and in August 2016 that demonstrated esophagitis and gastritis (distal esophageal stricture and tear in 2016). In January 2017 she presented with coffee ground emesis that progressed to haris hematemesis and hemorrhagic shock. On that occasion she was noted to have bleeding esophageal varices and underwent banding 4. She was instructed to follow-up in 4 weeks for repeat EGD and banding however she states she was unable to follow-up due to issues with change of insurance. She denies use of NSAIDs. She states that she did drink part of a wine and spritzer 3 days ago but denies ongoing daily alcohol use.. Her hemoglobin on arrival to the ED was 7. She was given 2 L normal saline bolus, Protonix drip, octreotide drip, Rocephin in the emergency department. She is being given vitamin K 10 mg IV for INR 1.6. Platelet count is within normal limits. Dr. Stephenson has discussed with Dr. Pagan to who requested CT abdomen and pelvis. Critical care medicine is consulted for admission of the patient. Repeat Hgb was 5.8 but patient had not yet received the 3 units of PRBCs that were ordered for transfusion. Review of Systems ROS Limitations: Clinical Condition (patient states "I feel groggy and not sure I can remember everything"), Other (lethargic) Constitutional: COMPLAINS OF: Dizziness, DENIES: Fever Endocrine: DENIES: Abnorml menstrual pattern Eyes: DENIES: Vision loss Cardiovascular: DENIES: Chest pain Gastrointestinal: COMPLAINS OF: Abdominal pain (epigastric), Black stools, Vomiting Genitourinary: DENIES: Urinary incontinence Musculoskeletal: DENIES: Joint pain Integumentary: DENIES: Rash Hematologic/lymphatic: DENIES: Bruising Neurologic: DENIES: Headache Past Family Social History Allergies: Coded Allergies: diclofenac (Unverified Adverse Reaction, Severe, headache, 02/06/17) Past Medical History Alcohol dependence Esophagitis Distal esophageal stricture Gastritis Duodenitis Prior admission for hemorrhagic shock with esophageal varices status post band ligation 4 Past Surgical History EGD 01/01/16 esophagitis with distal esophageal stricture, gastropathy throughout , duodenitis EGD 09/21/16 LA class C esophagitis, gastritis. Pathology was negative for H pylori. Colonoscopy with polypectomy 09/21/16medium size sessile polyp was seen with polypectomy performed, 2 large semi-pedunculated polyps in the sigmoid colon with polypectomy by snare cautery. Pathology showed hyperplastic polyp and sigmoid tubulovillou adenoma EGD 02/02/17 Bleeding esophageal varices status post band ligation 4 Lumbar fusion performed in [place] by Dr. Moreno Hysterectomy Reported Medications Patient states she was not taking any medications at home "because she had run out". She did take 1 Percocet that was left over from a prior issue. Active Ordered Medications Current Medications Medications (Trade) Dose Ordered Sig/Patricia Route Start Time Stop Time Status Last Admin Sodium Chloride 250 ml @ 15 mls/hr ONCE ONCE IV 10/27/17 20:00 10/28/17 12:39 10/27/17 21:44 Octreotide Acetate 500 mcg/ Sodium Chloride 500.5 ml @ 50 mls/hr Q10H1M IV 10/27/17 19:59 Pantoprazole Sodium 80 mg/ Sodium Chloride 100 ml @ 10 mls/hr Q10H IV 10/27/17 19:59 10/27/17 20:49 Sodium Chloride 250 ml @ 15 mls/hr ONCE ONCE IV 10/27/17 20:30 10/28/17 13:09 Sodium Chloride 1,000 ml @ 84 mls/hr [id number] IV 10/27/17 21:00 (Morphine Inj) 2 mg Q2H PRN IV PUSH 10/27/17 20:45 (Zofran Inj) 4 mg Q6H PRN IV PUSH 10/27/17 20:45 (Albuterol Neb) 2.5 mg Q2HR NEB PRN INH 10/27/17 20:45 ([facility] Information) 1 [id number] XX 10/27/17 20:45 (Chlorhexidine 2% Cloth) 3 pack Taper DAILY@04 TOP 10/28/17 04:00 10/24/18 03:59 (Chlorhexidine 2% Cloth) 3 pack UNSCH PRN TOP 10/27/17 20:45 Ceftriaxone Sodium 1000 mg/ Sodium Chloride 100 ml @ 200 mls/hr Q24H IV 10/28/17 21:00 Phytonadione 10 mg/Dextrose 51 ml @ 102 mls/hr DAILY IV 10/27/17 21:00 10/29/17 09:29 (NS Flush) 2 ml UNSCH PRN IV FLUSH 10/27/17 20:45 (NS Flush) 2 ml BID IV FLUSH 10/27/17 21:00 Multivitamins 10 ml/Folic Acid 1 mg/Sodium Chloride 510.2 ml @ 125 mls/hr Q24H IV 10/27/17 22:00 11/01/17 21:59 Thiamine HCl 100 mg/Sodium Chloride 101 ml @ 100 mls/hr Q24H IV 10/27/17 21:00 10/30/17 20:59 (Romazicon Inj) 0.2 mg Q1M PRN IV PUSH 10/27/17 20:45 (Ativan) 1 mg Q4H PRN PO 10/27/17 20:45 (Ativan Inj) 1 mg Q4H PRN IV PUSH 10/27/17 20:45 (Ativan) 2 mg Q2H PRN PO 10/27/17 20:45 (Ativan Inj) 2 mg Q2H PRN IV PUSH 10/27/17 20:45 (Ativan Inj) 2 mg Q1H PRN IV PUSH 10/27/17 20:45 (Ativan Inj) 2 mg Q15M PRN IV PUSH 10/27/17 20:45 Family History Mother of COPD at age 72 There is no family history of liver disease Social History She began smoking at age 37 and states she has ongoing tobacco abuse smoking about a third of pack per day She states that she has not been drinking significantly since her prior admission in January 2017, however she did admit to drinking a wine Spritzer 3 days ago. . She denies history of alcohol dependence though it is well documented throughout her prior medical record. She states "just because someone drinks and smokes does not mean they are addicted". Denies illicit drug use Physical Exam Vital Signs Vital Signs Date Time Temp Pulse Resp B/P (MAP) Pulse Ox O2 Delivery O2 Flow Rate FiO2 10/27/17 22:43 98.6 105 20 106/55 100 10/27/17 22:15 99.0 101 17 96/52 100 10/27/17 22:00 99.6 102 17 103/53 100 10/27/17 21:46 99.6 108 15 96/50 99 10/27/17 19:11 20 100 Room Air 10/27/17 18:44 98.2 116 18 92/55 (67) 98 Physical Exam GENERAL: Well-nourished, well-developed patient who is semi-recumbent in bed, interactive and oriented though slightly lethargic. SKIN: Warm and dry. HEAD: Atraumatic. Normocephalic. EYES: Pupils equal and round, reactive, pale conjunctivae.. No scleral icterus. No injection or drainage. ENT: No nasal bleeding or discharge. Mucous membranes dry. NECK: Trachea midline. Jugular veins flat CARDIOVASCULAR: Tachycardic, sinus tach on the monitor with rate of 105. No murmurs rubs or gallops appreciated. RESPIRATORY: Breathing comfortably with no accessory muscle use on room air GASTROINTESTINAL: Abdomen soft, tender to palpation in midepigastrium. No rebound or guarding. Bowel sounds are active and present. MUSCULOSKELETAL: Extremities without clubbing, cyanosis, or edema. No ecchymosis. No obvious deformities. NEUROLOGICAL: Awake and alert oriented 3. No obvious cranial nerve deficits. Motor grossly within normal limits. Five out of 5 muscle strength in the arms and legs. Normal speech. Laboratory Laboratory Tests Test 10/27/17 19:15 10/27/17 21:08 White Blood Count 13.7 Red Blood Count 2.83 Hemoglobin 7.0 5.8 Hematocrit 22.7 19.2 Mean Corpuscular Volume 80.1 Mean Corpuscular Hemoglobin 24.8 Mean Corpuscular Hemoglobin Concent 30.9 Red Cell Distribution Width 22.9 Platelet Count 246 Mean Platelet Volume 9.3 Neutrophils (%) (Auto) 67.2 Lymphocytes (%) (Auto) 21.8 Monocytes (%) (Auto) 10.4 Eosinophils (%) (Auto) 0.1 Basophils (%) (Auto) 0.5 Neutrophils # (Auto) 9.2 Lymphocytes # (Auto) 3.0 Monocytes # (Auto) 1.4 Eosinophils # (Auto) 0.0 Basophils # (Auto) 0.1 CBC Comment DIFF FINAL Differential Comment Prothrombin Time 16.4 Prothromb Time International Ratio 1.6 Activated Partial Thromboplast Time 23.9 Blood Urea Nitrogen 38 Creatinine 0.95 Random Glucose 134 Total Protein 5.6 4.7 Albumin 2.2 Calcium Level 7.7 6.9 Alkaline Phosphatase 103 Aspartate Amino Transf (AST/SGOT) 100 Alanine Aminotransferase (ALT/SGPT) 41 Total Bilirubin 1.3 Sodium Level 144 Potassium Level 3.8 Chloride Level 104 Carbon Dioxide Level 25.2 Anion Gap 15 Estimat Glomerular Filtration Rate 62 Lipase 56 Lactic Acid Level 5.6 Protein Corrected Calcium 8.2 Ammonia 37 Acetaminophen Level 7.9 Ethyl Alcohol Level LESS THAN 3 Result Diagram: 10/27/17210710/27/171914 Caprini VTE Risk Assessment Caprini VTE Risk Assessment: Mod/High Risk (score >= 2) VTE Pharm Contraindication: Active bleeding Caprini Risk Assessment Model Point Value = 1 Point Value = 2 Point Value = 3 Point Value = 5 Age 41-60 Minor surgery BMI > 25 kg/m2 Swollen legs Varicose veins or History of unexplained or recurrent spontaneous Oral contraceptives or hormone replacement Sepsis (< 1 month) Serious lung disease, including pneumonia (< 1 month) Abnormal pulmonary function Acute myocardial infarction Congestive heart failure (< 1 month) History of inflammatory bowel disease Medical patient at bed rest Age 61-74 Arthroscopic surgery Major open surgery (> 45 min) Laparoscopic surgery (> 45 min) Malignancy Confined to bed (> 72 hours) Immobilizing plaster cast Central venous access Age >= 75 History of VTE Family history of VTE Factor V Leiden Prothrombin [id number] Lupus anticoagulant Anticardiolipin antibodies Elevated serum homocysteine Heparin-induced thrombocytopenia Other congenital or acquired thrombophilia Stroke (< 1 month) Elective arthroplasty Hip, pelvis, or leg fracture Acute spinal cord injury (< 1 month) Prophylaxis Regimen Total Risk Factor Score Risk Level Prophylaxis Regimen 0-1 Low Early ambulation 2 Moderate Order ONE of the following: *Sequential Compression Device (SCD) *Heparin 5000 units SQ BID 3-4 Higher Order ONE of the following medications: *Heparin 5000 units SQ TID *Enoxaparin/Lovenox 40 mg SQ daily (WT < 150 kg, CrCl > 30 mL/min) *Enoxaparin/Lovenox 30 mg SQ daily (WT < 150 kg, CrCl > 10-29 mL/min) *Enoxaparin/Lovenox 30 mg SQ BID (WT < 150 kg, CrCl > 30 mL/min) AND/OR *Sequential Compression Device (SCD) 5 or more Highest Order ONE of the following medications: *Heparin 5000 units SQ TID (Preferred with Epidurals) *Enoxaparin/Lovenox 40 mg SQ daily (WT < 150 kg, CrCl > 30 mL/min) *Enoxaparin/Lovenox 30 mg SQ daily (WT < 150 kg, CrCl > 10-29 mL/min) *Enoxaparin/Lovenox 30 mg SQ BID (WT < 150 kg, CrCl > 30 mL/min) AND *Sequential Compression Device (SCD) Assessment and Plan Problem List: (1) Elevated INR ICD Code: R79.1 - Abnormal coagulation profile Status: Acute (2) Colitis ICD Code: K52.9 - Noninfective gastroenteritis and colitis, unspecified Status: Acute (3) Coagulopathy ICD Code: D68.9 - Coagulation defect, unspecified Status: Acute (4) Acute blood loss anemia ICD Code: D62 - Acute posthemorrhagic anemia Status: Acute (5) Alcohol dependence ICD Code: F10.20 - Alcohol dependence, uncomplicated Status: Acute (6) Lactic acidosis ICD Code: E87.2 - Acidosis Status: Acute (7) Portal hypertension ICD Code: K76.6 - Portal hypertension Status: Acute (8) Tachycardia ICD Code: R00.0 - Tachycardia, unspecified Status: Acute (9) Tobacco abuse ICD Code: Z72.0 - Tobacco use Status: Chronic (10) Esophageal varices ICD Code: I85.00 - Esophageal varices without bleeding Status: Chronic Assessment and Plan NEURO: Pain, epigastrium Alcohol dependence Morphine 2-4 mg IV q2h as needed for pain Thiamine/folic acid/multivitamin supplementation IV for now. Can be switched to p.o. when appropriate. Monitor for alcohol withdrawal by [facility] protocol Hyperammonemia Ammonia level 37, will follow up. RESP: Tobacco abuse Albuterol every 2 hours as needed for wheezing CV: Lactic acidemia secondary to GI bleeding Lactic acidemia secondary to significant blood loss anemia. 0.9 NaCl 84 mL/h. Transfusion as per below. Follow-up lactic acid GI: Upper GI bleeding Cirrhosis Portal hypertension History of esophageal varices Mild sigmoid colitis AST elevation N.p.o. Gastroenterology to see for probable scope. Continue Protonix and octreotide drips. Serial hemoglobin and transfusion as per below. CT abdomen and pelvis 10/27/17-nodular enlarged liver consistent with cirrhosis. Recanalization of umbilical and esophageal varices consistent with portal hypertension. Cholelithiasis. Minimal sigmoid colon thickening suggesting mild colitis. Propranolol can be added when appropriate Lipase is normal FEN/RENAL: Monitor intake and output. Monitor electrolytes. Replace electrolytes as indicated per ICU electrolyte replacement protocol. Add magnesium and phosphorus to blood in lab. Calcium gluconate 1 g IV ID: Empiric Rocephin 1 g IV daily for SBP prophylaxis. Blood culture sent 10/27/17, follow-up. HEME: Acute symptomatic blood loss anemia Coagulopathy INR 1.6. Receiving vitamin K 10 mg IV daily 3 doses. Repeat INR in a.m. Serial hemoglobin every 6 hours. Transfusing 3 units packed red blood cells now. Follow-up CBC, coags, fibrinogen in a.m. ENDO: Euglycemic PROPH: SCDs for DVT prophylaxis. Avoid pharmacologic DVT prophylaxis due to acute GI bleeding. Protonix drip as per above. ACCESS: Patient has peripheral IV x2. I am asked nurse to add additional large- bore peripheral IV. Full code Level 3 H&P Problem Qualifiers (1) GI bleed: Qualified Codes: K92.1 - Radha Rosas MD October 27, 2017 23:38
[2017-10-28] VITALS (18 sets, daily range): BP systolic 96–152; BP diastolic 51–89; PULSE 74–99; RESP 12–30; TEMP 97.7–99; O2SAT 94–100
[2017-10-28] MEDS ORDERED: MAGNESIUM OXIDE 400 MG TAB PO PRN (00:15)
[2017-10-28] MEDS ORDERED: POTASSIUM CHLORIDE 25 MEQ EFFERVESCENT TAB PO PRN (00:15)
[2017-10-28] MEDS ORDERED: SODIUM PHOSPHATE INJ 30 MMOL in SODIUM CHLOR 0.9% 250 ML INJ 240 ML IV PRN (00:15)
[2017-10-28] MEDS ORDERED: MAGNESIUM SULFATE INJ 4 GM in SODIUM CHLORIDE 0.9% INJ 92 ML IV PRN (00:15)
[2017-10-28] MEDS ORDERED: POTASSIUM PHOSPHATE MONOBASIC 500 MG TAB PO/TUBE PRN (00:15)
[2017-10-28] MEDS ORDERED: POTASSIUM CHLOR 20 MEQ PREMIX 100 ML IV PRN ×2 (00:15)
[2017-10-28] MEDS ORDERED: POTASSIUM PHOSPHATE INJ 30 MMOL in SODIUM CHLOR 0.9% 250 ML INJ 250 ML IV PRN (00:15)
[2017-10-28] MEDS ORDERED: POTASSIUM CHLOR 40 MEQ PREMIX 100 ML IV PRN ×2 (00:15)
[2017-10-28] MEDS ORDERED: MAGNESIUM SULFATE INJ 2 GM in SODIUM CHLORIDE 0.9% INJ 96 ML IV PRN (00:15)
[2017-10-28] MEDS ORDERED: POTASSIUM PHOSPHATE MONOBASIC 500 MG TAB PO PRN (00:15)
[2017-10-28] MEDS: SODIUM CHLOR 0.9% 1000 ML INJ 1,000 ML IV SCH ×3 (00:25→22:22)
[2017-10-28] MEDS: OCTREOTIDE INJ 500 MCG in SODIUM CHLORID 0.9% 500 ML INJ 500 ML IV SCH ×2 (00:25→15:07)
[2017-10-28] MEDS: SODIUM CHLORIDE 0.9% FLUSH 10 ML FLUSH IV FLUSH SCH ×3 (00:25→22:11)
[2017-10-28] MEDS ORDERED: CALCIUM GLUCONATE INJ 1 GM in SODIUM CHLORIDE 0.9% INJ 100 ML IV ONE (00:30)
[2017-10-28] MEDS: MORPHINE SULFATE 4 MG/ML INJ IV PUSH PRN ×8 (03:53→22:06)
[2017-10-28] MEDS: CHLORHEXIDINE GLUCONATE 2 % 1 PACK (2 CLOTHS) TOP SCH (04:00)
[2017-10-28] MEDS: PANTOPRAZOLE INJ 80 MG in SODIUM CHLORIDE 0.9% INJ 100 ML IV SCH ×3 (07:02→23:03)
--- NOTE | 2017-10-28 07:16 | HHI.CCPN ---
Subjective Remarks/Hospital Course 52-year-old female with past medical history of alcohol dependence, cirrhosis, portal hypertension, esophageal varices with band ligation times . She presents to [facility] emergency department stating she has had coffee-ground emesis. She had one episode of coffee-ground emesis the evening of 10/26/17 and then 3 additional episodes on the evening of admission 10/27 including one episode in the emergency department. She has felt presyncopal. She complains of some cramping and burning pain in her epigastrium. She has had 2 melena BMs today. She has had multiple EGDs in the past. She had EGDs in 2016 and in August 2016 that demonstrated esophagitis and gastritis (distal esophageal stricture and tear in 2016). In January 2017 she presented with coffee ground emesis that progressed to haris hematemesis and hemorrhagic shock. On that occasion she was noted to have bleeding esophageal varices and underwent banding 4. She was instructed to follow-up in 4 weeks for repeat EGD and banding however she states she was unable to follow-up due to issues with change of insurance. She denies use of NSAIDs. She states that she did drink part of a wine and spritzer 3 days ago but denies ongoing daily alcohol use.. Her hemoglobin on arrival to the ED was 7. She was given 2 L normal saline bolus, Protonix drip, octreotide drip, Rocephin in the emergency department. She is being given vitamin K 10 mg IV for INR 1.6. Platelet count is within normal limits. Dr. Stephenson has discussed with Dr. Pagan to who requested CT abdomen and pelvis. Critical care medicine is consulted for admission of the patient. Repeat Hgb was 5.8 but patient had not yet received the 3 units of PRBCs that were ordered for transfusion. Subjective 10/29: Currently resting in bed in no acute distress. Status post 3 units PRBCs overnight. Hemodynamically stable. Abdomen slightly tender to palpation. Objective Vital Signs Date Time Temp Pulse Resp B/P (MAP) Pulse Ox O2 Delivery O2 Flow Rate FiO2 10/28/17 06:00 95 10/28/17 04:00 98.4 16 115/55 (75) 100 10/27/17 19:11 Room Air Intake and Output 10/28/17 10/28/17 10/29/17 08:00 16:00 00:00 Intake Total 1500 ml Balance 1500 ml Result Diagram: 10/27/17210710/27/17 1915 Other Results Microbiology Date/Time Source Procedure Growth Status 10/27/17 23:38 Blood Peripheral Aerobic Blood Culture Pending Received 10/27/17 23:38 Blood Peripheral Anaerobic Blood Culture Pending Received Imaging Last Impressions Abdomen/Pelvis CT 10/27/17 0000 Signed Impressions: Service Date/Time: Friday, October 27, 2017 21:24 - CONCLUSION: 1. Nodular enlarged heterogeneous liver consistent with known cirrhosis. 2. Recanalization of the umbilical vein and esophageal varices consistent with portal hypertension. 3. Cholelithiasis. 4. Minimal sigmoid colon wall thickening suggesting mild colitis. Clinical correlation is recommended. 5. Degenerative changes and scoliosis of the thoracolumbar spine. Alex Montesinos MD Objective Remarks GENERAL: 52-year-old female currently resting in bed in no acute distress SKIN: Warm and dry. HEAD: Atraumatic. Normocephalic. EYES: Pupils equal and round, reactive, pale conjunctivae.. No scleral icterus. No injection or drainage. ENT: No nasal bleeding or discharge. Mucous membranes dry. NECK: Trachea midline. Jugular veins flat CARDIOVASCULAR: RRR. S1, S2 no S4 without murmur RESPIRATORY: Positive end expiratory wheeze. GASTROINTESTINAL: Abdomen soft, tender to palpation in epigastric region. Voluntary guarding. No rigidity. This is not a surgical abdomen.. Bowel sounds are active and present. MUSCULOSKELETAL: Extremities without clubbing, cyanosis, or edema. No ecchymosis. No obvious deformities. NEUROLOGICAL: Awake and alert oriented 3. No obvious cranial nerve deficits. Motor grossly within normal limits. Five out of 5 muscle strength in the arms and legs. Normal speech. Urinary Catheter: No Assessment to: Continue Vascular Central Line Catheter: No Assessment to: Continue A/P Assessment and Plan NEURO/PSYCH: Pain management/epigastrium History of chronic oxycodone use Alcohol dependence Morphine sulfate 2-4 mg IV q2h as needed for pain Thiamine/folic acid/multivitamin supplementation IV for now. Can be switched to p.o. when appropriate. Monitor for alcohol withdrawal by [facility] protocol Ofirmev 1 g IV every 8 hours as needed fever Holding oxycodone/acetaminophen 10/325 1 tablet every 4-6 hours as needed pain RESP: Tobacco abuse Mild intermittent asthma Nasal cannula to maintain saturations greater than or equal to 92%. Currently on room air Incentive spirometry while awake We will give albuterol inhaler the patient use every 6 hours scheduled. Albuterol aerosols every 2 hours as needed for wheezing Follow-up on chest x-ray Self-education tobacco cessation booklet will be provided Currently not requesting nicotine patch CV: Lactic acidemia secondary to GI bleeding Currently on LR at 84 cc an hour Lactic acidemia secondary to significant blood loss anemia. Status post 3 units PRBCs Serial lactates to every 6 hours until cleared Currently not requiring vasopressors and/or antihypertensives GI: Likely upper GI bleed Liver cirrhosis Portal hypertension History of esophageal varices LA class C status post banding 4 02/08 Mild sigmoid colitis AST elevation Hyperammonemia Hypoalbuminemia History of sessile polyp N.p.o. Gastroenterology to see for probable upper endoscopy Continue pantoprazole drip at 8 mg an hour and octreotide drips at 50 mcg an hour. Serial hemoglobin and transfusion as per below and hematology CT abdomen and pelvis 10/27/17-nodular enlarged liver consistent with cirrhosis. Recanalization of umbilical and esophageal varices consistent with portal hypertension. Cholelithiasis. Minimal sigmoid colon thickening suggesting mild colitis. Propranolol/nadolol/nitrates et al can be added when appropriate Lipase is normal FEN/RENAL: Hypocalcemia Monitor intake and output. Monitor electrolytes. Replace electrolytes as indicated per ICU electrolyte replacement protocol. Calcium gluconate 1 g IV receipt overnight. A.m. laboratories currently pending ID: Empiric ceftriaxone 1 g IV daily for spontaneous bacterial peritonitis prophylaxis. With known history of ascites Check chest x-ray with history of "upper respiratory infection" 2 weeks Continue nystatin cream 3 times daily Pertinent microbiology/cultures 10/27 -blood cultures 2 -pending Check influenza a HEME: Leukocytosis likely leukemoid type reaction Acute blood loss anemia Elevated INR INR 1.6. Receiving vitamin K 10 mg IV daily 3 doses. Repeat INR in a.m. Serial hemoglobin every 6 hours. Status post transfusion of 3 units packed red blood cells overnight per Pending follow-up CBC, coags, fibrinogen in a.m. ENDO: Euglycemic Sliding scale insulin only if indicated to maintain euglycemia DERM: History of psoriasis Continue nystatin 3 times daily PROPH: SCDs for DVT prophylaxis. Avoid pharmacologic DVT prophylaxis due to acute GI bleeding. Pantoprazole drip as per above. ACCESS: Utilize peripheral IV. Central line if indicated Full code Level 2 follow-up Lamin Osuna MD October 28, 2017 07:16
[2017-10-28] MEDS ORDERED: ACETAMINOPHEN 1000 MG/100 ML 100 ML IV PRN (07:30)
[2017-10-28] MEDS: PHYTONADIONE INJ 10 MG in DEXTROSE 5% IN WATER INJ 50 ML IV SCH ×2 (08:25)
[2017-10-28] MEDS: NYSTATIN 100,000 UNIT/GM CREAM 15 GM TOPICAL SCH ×3 (08:25→16:29)
--- NOTE | 2017-10-28 08:41 | RADRPT ---
EXAM DATE/TIME: 10/28/2017 08:03 [place] COMPARISON: CHEST SINGLE AP, September 19, 2016, 11:46. INDICATIONS : Cough. MEDICAL HISTORY : Cirrhosis. Hypertension Asthma SURGICAL HISTORY : Hysterectomy. Fusion, lumbar. ENCOUNTER: Initial ACUITY: 1 day PAIN SCORE: 0/10 LOCATION: Bilateral chest FINDINGS: Portable AP view of the chest demonstrates a normal-sized cardiac silhouette. No effusion, consolidat ion, or pneumothorax is visualized. The bones and soft tissues demonstrate no acute abnormality. Adelina st implants are present. CONCLUSION: No acute cardiopulmonary abnormality is identified. Chadd Orlando MD on October 28, 2017 at 8:35 Board Certified Radiologist. This report was verified electronically.
[2017-10-28] MEDS: LORazepam 2 MG/ML VIAL IV PUSH PRN ×2 (08:44→22:06)
--- NOTE | 2017-10-28 08:48 | PD.CONS ---
HPI History of Present Illness This is a 52 year old F with PMH significant for cirrhosis secondary to ETOH abuse who has history of GIB and has had banding of her esophageal varices in the past. Pt presented to the ER yesterday with complaints of coffee ground emesis that began on Sunday night, states she had one episode Sunday night and has had three episodes since then, the last one in the middle of the night. Also complaining of melena, reports 2 episodes since yesterday. Associated epigastric burning sensation, states intermittent. Reports one episode of hematochezia prior to coming to the hospital, states it was just bright red blood and not mixed in with any stool. Denies any history of lower GIB in the past. Denies recent unintentional weight loss. Pt currently admitted to ICU, on Protonix and Octreotide gtt. CT abdomen and pelvis W IV contrast (10/27) --> Nodular enlarged heterogeneous liver consistent with known cirrhosis. Recanalization of the umbilical vein and esophageal varices consistent with portal hypertension. Cholelithiasis. Minimal sigmoid colon wall thickening suggesting mild colitis. Of note, pt does reports some chest congestion for the past two weeks and has been taking Amoxicillin. Denies diarrhea. Does report fever, chills. Last colonoscopy August 2016 --> Medium sized sessile polyp in the ascending colon, 2 large semi-pedunculated polyps in the sigmoid colon. Pathology (sigmoid colon polyp) tubulovillous adenoma (ascending colon polyp) hyperplastic. Last EGD (January 2017) --> Esophageal varices with active bleeding during the procedure, banding x 4 with no bleeding after banding. History of ETOH abuse, states she still drinks occasionally but is very vague about how much or how often. Denies taking blood thinners or frequent NSAID use. Pt has not followed up with GI in the office, states she has had a change in her insurance. (Angélica Paz) PFSH Past Medical History Cirrhosis Esophageal varices ETOH abuse Distal esophageal stricture Gastritis Duodenitis Past Surgical History EGD Colonoscopy Lumbar fusion Hysterectomy (Angélica Paz) Coded Allergies: diclofenac (Unverified Adverse Reaction, Severe, headache, 02/06/17) Social History Still drinks ETOH- vague about how much or how often but states not a lot (Angélica Paz) Review of Systems Gastrointestinal: COMPLAINS OF: Abdominal pain, Black stools, Bloody stools, Nausea, Vomiting, Heartburn, Hematemesis, DENIES: Constipation, Diarrhea, Difficulty Swallowing, Odynophagia, Swelling of Abdomen (Angélica Paz) GI Exam Vitals I&O Vital Signs Date Time Temp Pulse Resp B/P (MAP) Pulse Ox O2 Delivery O2 Flow Rate FiO2 10/28/17 08:09 97 21 10/28/17 07:12 16 10/28/17 06:00 95 10/28/17 04:00 98.4 86 16 115/55 (75) 100 10/28/17 04:00 86 10/28/17 03:58 16 10/28/17 02:00 95 10/28/17 00:00 98.5 99 18 96/51 (66) 100 10/27/17 22:43 98.6 105 20 106/55 100 10/27/17 22:15 99.0 101 17 96/52 100 10/27/17 22:00 99.6 102 17 103/53 100 10/27/17 21:46 99.6 108 15 96/50 99 10/27/17 19:11 20 100 Room Air 10/27/17 18:44 98.2 116 18 92/55 (67) 98 I/O 10/27/17 10/27/17 10/27/17 10/28/17 10/28/17 10/28/17 07:00 15:00 23:00 07:00 15:00 23:00 Intake Total 1555 ml 1780 ml Balance 1555 ml 1780 ml Intake Oral 0 ml IV Total 1035 ml 710 ml Packed Cells 400 ml 1000 ml Blood Product IV Normal Saline Flush 120 ml 70 ml # Voids 1 # Bowel Movements 1 Imaging Last Impressions Abdomen/Pelvis CT 10/27/17 0000 Signed Impressions: Service Date/Time: Friday, October 27, 2017 21:24 - CONCLUSION: 1. Nodular enlarged heterogeneous liver consistent with known cirrhosis. 2. Recanalization of the umbilical vein and esophageal varices consistent with portal hypertension. 3. Cholelithiasis. 4. Minimal sigmoid colon wall thickening suggesting mild colitis. Clinical correlation is recommended. 5. Degenerative changes and scoliosis of the thoracolumbar spine. Alex Montesinos MD Laboratory Test 10/27/17 19:15 10/27/17 21:08 10/27/17 23:00 White Blood Count 13.7 TH/MM3 Red Blood Count 2.83 MIL/MM3 Hemoglobin 7.0 GM/DL 5.8 GM/DL Hematocrit 22.7 % 19.2 % Mean Corpuscular Volume 80.1 FL Mean Corpuscular Hemoglobin 24.8 PG Mean Corpuscular Hemoglobin Concent 30.9 % Red Cell Distribution Width 22.9 % Platelet Count 246 TH/MM3 Mean Platelet Volume 9.3 FL Neutrophils (%) (Auto) 67.2 % Lymphocytes (%) (Auto) 21.8 % Monocytes (%) (Auto) 10.4 % Eosinophils (%) (Auto) 0.1 % Basophils (%) (Auto) 0.5 % Neutrophils # (Auto) 9.2 TH/MM3 Lymphocytes # (Auto) 3.0 TH/MM3 Monocytes # (Auto) 1.4 TH/MM3 Eosinophils # (Auto) 0.0 TH/MM3 Basophils # (Auto) 0.1 TH/MM3 CBC Comment DIFF FINAL Differential Comment Prothrombin Time 16.4 SEC Prothromb Time International Ratio 1.6 RATIO Activated Partial Thromboplast Time 23.9 SEC Blood Urea Nitrogen 38 MG/DL Creatinine 0.95 MG/DL Random Glucose 134 MG/DL Total Protein 5.6 GM/DL 4.7 GM/DL Albumin 2.2 GM/DL Calcium Level 7.7 MG/DL 6.9 MG/DL Alkaline Phosphatase 103 U/L Aspartate Amino Transf (AST/SGOT) 100 U/L Alanine Aminotransferase (ALT/SGPT) 41 U/L Total Bilirubin 1.3 MG/DL Sodium Level 144 MEQ/L Potassium Level 3.8 MEQ/L Chloride Level 104 MEQ/L Carbon Dioxide Level 25.2 MEQ/L Anion Gap 15 MEQ/L Estimat Glomerular Filtration Rate 62 ML/MIN Lipase 56 U/L Lactic Acid Level 5.6 mmol/L Protein Corrected Calcium 8.2 MG/DL Ammonia 37 MCMOL/L Acetaminophen Level 7.9 MCG/ML Ethyl Alcohol Level LESS THAN 3 MG/DL Date/Time Source Procedure Growth Status 10/27/17 23:38 Blood Peripheral Aerobic Blood Culture Pending Received 10/27/17 23:38 Blood Peripheral Anaerobic Blood Culture Pending Received Physical Examination HEENT: Normocephalic; atraumatic CHEST: Even/unlabored CARDIAC: RRR ABDOMEN: Soft, nondistended, epigastric TTP, lower abdominal tenderness, bowel sounds active EXTREMITIES: No clubbing, cyanosis, or edema.. RIM TURNING MACHINE OPERATOR: No focal deficits; alert and oriented times three. (Angélica Paz) Assessment and Plan Plan Assessment: - Coffee ground emesis and melena per HPI- epigastric burning. H/H currently 5.8/19.2 - 3 U PRBCs ordered per [facility] History of upper GIB- last EGD in January 2017 with active variceal bleeding- banding x 4- pt has not followed up with GI since then because of insurance issues. Currently on Protonix and Octreotide gtt - Hematochezia- reports one episode of hematochezia prior to transfer to the hospital- denies any stool mixed in. Last colonoscopy August 2016 --> Medium sized sessile polyp in the ascending colon, 2 large semi-pedunculated polyps in the sigmoid colon. Pathology (sigmoid colon polyp) tubulovillous adenoma (ascending colon polyp) hyperplastic. CT abdomen and pelvis also noted some thickening to the sigmoid colon. Of note, pt has been on Amoxicillin for the past two weeks for a respiratory infection. Reports fever and chills. Denies diarrhea. - Cirrhosis secondary to previous ETOH abuse. Current labs: AST-100 ALT-41 T bili-1.3 Alk phos-103 No thrombocytopenia Coagulopathy- INR 1.6- Vit K Hypoalbuminemia- albumin-2.2 Pt reports last ETOH was three days ago, very vague about how much and how often she drinks. CT abdomen and pelvis W IV contrast (10/27) --> Nodular enlarged heterogeneous liver consistent with known cirrhosis. Recanalization of the umbilical vein and esophageal varices consistent with portal hypertension. Cholelithiasis. Minimal sigmoid colon wall thickening suggesting mild colitis - Leukocytosis and elevated lactic acid - Rocephin Plan: EGD today Obtain consent Keep NPO Protonix gtt Octreotide gtt Transfuse per [facility] Monitor H/H Hepatitis panel Stool studies Further recommendations based on clinical course and results of above Pt has been seen and examined by myself and Dr. Pagan and this note is written on her behalf (Angélica Paz) Physician Comments seen, examined agree with above (Shayla Pagan MD) Angélica Paz October 28, 2017 08:48 Shayla Pagan MD October 28, 2017 12:37
[2017-10-28 10:19] LABS: AUTOMATED NEUTROPHIL # 5.1 TH/MM3 (1.8-7.7); BASOPHIL # 0.1 TH/MM3 (0-0.2); BASOPHIL % 0.7 % (0.0-2.0); EOSINOPHIL # 0.1 TH/MM3 (0-0.4); EOSINOPHIL % 1.2 % (0.0-4.0); HEMATOCRIT 30.8 % (35.0-46.0); HEMOGLOBIN 10.2 GM/DL (11.6-15.3); LYMPH % 28.5 % (9.0-44.0); LYMPHOCYTE # 2.4 TH/MM3 (1.0-4.8); MEAN CELL VOLUME 82.8 FL (80.0-100.0); MEAN CORPUSCULAR HEMOGLOBIN 27.3 PG (27.0-34.0); MEAN CORPUSCULAR HGB CONC 32.9 % (32.0-36.0); MEAN PLATELET VOLUME 8.6 FL (7.0-11.0); MONO % 9.2 % (0.0-8.0); MONOCYTE # 0.8 TH/MM3 (0-0.9); NEUT % 60.4 % (16.0-70.0); PLATELET COUNT 124 TH/MM3 (150-450); RED BLOOD COUNT 3.72 MIL/MM3 (4.00-5.30); RED CELL DISTRIBUTION WIDTH 20.2 % (11.6-17.2); WHITE BLOOD COUNT 8.5 TH/MM3 (4.0-11.0)
[2017-10-28 10:32] LABS: INTERNATIONAL NORMALIZED RATIO 1.6 RATIO; PROTHROMBIN TIME - PATIENT 15.7 SEC (9.8-11.6)
[2017-10-28 10:44] LABS: MAGNESIUM 1.5 MG/DL (1.5-2.5); PHOSPHORUS 2.4 MG/DL (2.5-4.9)
[2017-10-28 10:46] LABS: ALBUMIN 2.2 GM/DL (3.4-5.0); ALT (GPT) 43 U/L (10-53); AST (GOT) 122 U/L (15-37); BICARBONATE 23.4 MEQ/L (21.0-32.0); BLOOD UREA NITROGEN 21 MG/DL (7-18); CALCIUM 7.5 MG/DL (8.5-10.1); CHLORIDE 114 MEQ/L (98-107); CREATININE 0.62 MG/DL (0.50-1.00); GLOMERULAR FILTRATION RATE 102 ML/MIN (>89); GLUCOSE,RANDOM 118 MG/DL (74-106); SODIUM (NA) 147 MEQ/L (136-145)
[2017-10-28 10:54] LABS: ALKALINE PHOSPHATASE 90 U/L (45-117); TOTAL PROTEIN 4.9 GM/DL (6.4-8.2)
[2017-10-28] MEDS ORDERED: ONDANSETRON HCL 4 MG/2 ML VIAL IV PUSH ONE (12:00)
[2017-10-28] MEDS ORDERED: DEXAMETHASONE SOD PHOS 4 MG/ML VIAL IV ONE (12:00)
[2017-10-28] MEDS ORDERED: ePHEDrine/NS 25 MG/5 ML SYRINGE IV ONE (12:00)
[2017-10-28] MEDS ORDERED: PROPOFOL 200 MG/20 ML AMP IV ONE (12:00)
[2017-10-28] MEDS ORDERED: LIDOCAINE HCL 1% PF 5 ML SYRINGE OTHER ONE (12:00)
[2017-10-28] MEDS ORDERED: SUCCINYLCHOLINE CHLORIDE 100 MG/5 ML SYRINGE IV PUSH ONE (12:00)
[2017-10-28] MEDS ORDERED: PHENYLEPH/NS 1000 MCG/10 ML SYR IV ONE (12:00)
--- NOTE | 2017-10-28 13:08 | GIPROC ---
[facility] [address] [facility]. [facility], [address] EGD PROCEDURE REPORT EXAM DATE: 10/28/2017 PATIENT NAME: Mila Meza MR #: [id number] BIRTHDATE: 1965 ATTENDING: Shayla Pagan MD ORDER #: [id number] PATTERN CARRIER: Osiris Charlton STATUS: inpatient INDICATIONS: The patient is a 52 yr old female here for an EGD due to gi bleeding anemia liver cirrhosis , history od esophageal varices PROCEDURE PERFORMED: EGD w/ biopsy MEDICATIONS: None and Per Anesthesia. TOPICAL ANESTHETIC: none CONSENT: The patient understands the risks and benefits of the procedure and understands that these risks include, but are not limited to: sedation, allergic reaction, infection, perforation and/or bleeding. Alternative means of evaluation and treatment include, among others: physical exam, x-rays, and/or surgical intervention. The patient elects to proceed with this endoscopic procedure. medical equipment was checked for proper function. Hand hygiene and appropriate measures for infection prevention was taken. After the risks, benefits and alternatives of the procedure were thoroughly explained, Informed consent was verified, confirmed and timeout was successfully executed by the treatment team. The patient was anesthetized with topical anesthesia and the Pentax [id number] endoscope was introduced through the mouth and advanced to the second portion of the duodenum. Retroflexed views revealed a hiatal hernia The gastroscope was then slowly withdrawn and removed. Some blood in oropharynx, most likely due to recent intubation duodenitis second portion-biopsy gastritis/healed ulcer antrum-biopsy stricture in midesophagus -dilated just by passing scope esophageal varices grade 2-no indication of recent bleed friable mucosa, easy bleeding i tried to pass the engineering project designer after was aplied on top of the sope, could not be passed through the stricture due to easy bleeding , aditional dilataton not done. ADVERSE EVENTS: There were no complications. IMPRESSIONS: 1. Some blood in oropharynx, most likely due to recent intubation duodenitis second portion-biopsy gastritis/healed ulcer antrum-biopsy stricture in midesophagus -dilated just by passing scope esophageal varices grade 2-no indication of recent bleed friable mucosa, easy bleeding i tried to pass the engineering project designer after was aplied on top of the sope, could not be passed through the stricture due to easy bleeding , aditional dilataton not done 2. Retroflexed views revealed a hiatal hernia RECOMMENDATIONS: 1. Await biopsy results. Biopsy results will not be ready for 7-10 days. If you don't hear from us in two weeks, call our office for biopsy results. 2. Anti-reflux regimen 3. Start PPI 4. Clear liquid diet colonoscopy in am avoid etoh and hepatotoxics PATIENT CONDITION: stable DISPOSITION: Inpatient REPEAT EXAM: Return 6 weeks as needed for EGD with dilatation and possible banding Shayla Pagan MD eSigned: Shayla Pagan MD 10/28/2017 1:07 PM cc: PATIENT NAME: Mila Meza MR#: [id number]
[2017-10-28] MEDS ORDERED: DO NOT ADM ANY ANTICOAGULANT DRUGS PRN (14:00)
[2017-10-28 15:35] LABS: BILIRUBIN, URINE NEG (NEG); BLOOD, URINE MOD (NEG); GLUCOSE,URINE NEG (NEG); KETONE, URINE NEG (NEG); NITRITE,URINE NEG (NEG); PH, URINE 6.5 (5.0-8.5); SQUAMOUS EPITHELIAL CELL URINE 1 /hpf (0-5); URINE COLOR YELLOW (YELLW/STRAW); URINE LEUKOCYTE ESTERASE NEG (NEG)
[2017-10-28 15:38] LABS: HEMATOCRIT 30.5 % (35.0-46.0); HEMOGLOBIN 10.2 GM/DL (11.6-15.3)
[2017-10-28] MEDS ORDERED: MAGNESIUM CITRATE SOLN 300 ML BTL PO ONE ×2 (16:00→20:00)
[2017-10-28 18:53] LABS: HEMATOCRIT 28.1 % (35.0-46.0); HEMOGLOBIN 9.3 GM/DL (11.6-15.3)
[2017-10-28] MEDS: THIAMINE INJ 100 MG in SODIUM CHLORIDE 0.9% INJ 100 ML IV SCH (22:22)
[2017-10-28] MEDS: MULTIVITAMIN INJ 10 ML, FOLIC ACID INJ 1 MG in SODIUM CHLORID 0.9% 500 ML INJ 500 ML IV SCH (22:22)
[2017-10-28] MEDS: cefTRIAXone INJ 1,000 MG in SODIUM CHLORIDE 0.9% INJ 100 ML IV SCH (22:24)
[2017-10-29] VITALS (13 sets, daily range): BP systolic 127–166; BP diastolic 59–88; PULSE 82–98; RESP 12–34; TEMP 98–98.3; O2SAT 94–99
[2017-10-29] MEDS: MORPHINE SULFATE 4 MG/ML INJ IV PUSH PRN ×10 (00:08→23:54)
[2017-10-29] MEDS: ALBUTEROL SULFATE 90 MCG/ACT HFA 8 GM INHALER INH SCH ×5 (00:15→22:21)
[2017-10-29 01:37] LABS: HEMATOCRIT 26.7 % (35.0-46.0)
[2017-10-29] MEDS: CHLORHEXIDINE GLUCONATE 2 % 1 PACK (2 CLOTHS) TOP SCH (04:00)
[2017-10-29] MEDS: OCTREOTIDE INJ 500 MCG in SODIUM CHLORID 0.9% 500 ML INJ 500 ML IV SCH ×2 (04:02→12:03)
[2017-10-29] MEDS: SODIUM CHLOR 0.9% 1000 ML INJ 1,000 ML IV SCH (06:28)
[2017-10-29] MEDS: SODIUM CHLORIDE 0.9% FLUSH 10 ML FLUSH IV FLUSH SCH ×2 (08:02→20:06)
[2017-10-29] MEDS: NYSTATIN 100,000 UNIT/GM CREAM 15 GM TOPICAL SCH ×3 (08:02→17:38)
[2017-10-29] MEDS: PHYTONADIONE INJ 10 MG in DEXTROSE 5% IN WATER INJ 50 ML IV SCH ×2 (08:02)
--- NOTE | 2017-10-29 08:50 | HHI.CCPN ---
Subjective Remarks/Hospital Course 52-year-old female with past medical history of alcohol dependence, cirrhosis, portal hypertension, esophageal varices with band ligation times . She presents to [facility] emergency department stating she has had coffee-ground emesis. She had one episode of coffee-ground emesis the evening of 10/26/17 and then 3 additional episodes on the evening of admission 10/27 including one episode in the emergency department. She has felt presyncopal. She complains of some cramping and burning pain in her epigastrium. She has had 2 melena BMs today. She has had multiple EGDs in the past. She had EGDs in 2016 and in August 2016 that demonstrated esophagitis and gastritis (distal esophageal stricture and tear in 2016). In January 2017 she presented with coffee ground emesis that progressed to haris hematemesis and hemorrhagic shock. On that occasion she was noted to have bleeding esophageal varices and underwent banding 4. She was instructed to follow-up in 4 weeks for repeat EGD and banding however she states she was unable to follow-up due to issues with change of insurance. She denies use of NSAIDs. She states that she did drink part of a wine and spritzer 3 days ago but denies ongoing daily alcohol use.. Her hemoglobin on arrival to the ED was 7. She was given 2 L normal saline bolus, Protonix drip, octreotide drip, Rocephin in the emergency department. She is being given vitamin K 10 mg IV for INR 1.6. Platelet count is within normal limits. Dr. Stephenson has discussed with Dr. Pagan to who requested CT abdomen and pelvis. Critical care medicine is consulted for admission of the patient. Repeat Hgb was 5.8 but patient had not yet received the 3 units of PRBCs that were ordered for transfusion. 5/6: Currently resting in bed in no acute distress. Status post 3 units PRBCs overnight. Hemodynamically stable. Abdomen slightly tender to palpation. Subjective 10/29: No further bleeding noted. Hemoglobin currently around 9. Plan for colonoscopy today. Pain is well controlled. No further questions per patient Objective Vital Signs Date Time Temp Pulse Resp B/P (MAP) Pulse Ox O2 Delivery O2 Flow Rate FiO2 10/29/17 06:00 97 10/29/17 04:38 18 10/29/17 04:00 98.3 151/72 (98) 94 10/28/17 19:06 21 10/28/17 14:00 Nasal Cannula 2 Result Diagram: 10/29/17 0122 10/28/17 1006 Other Results Microbiology Date/Time Source Procedure Growth Status 10/27/17 23:38 Blood Peripheral Aerobic Blood Culture - Preliminary NO GROWTH IN 1 DAY Resulted 10/27/17 23:38 Blood Peripheral Anaerobic Blood Culture - Preliminary NO GROWTH IN 1 DAY Resulted 10/28/17 09:28 Nasal Aspirate Influenza Types A,B Antigen (DILMA) - Final NEGATIVE FOR FLU A AND B ANTIGEN.... Complete Imaging Last Impressions Chest X-Ray 10/28/17 0000 Signed Impressions: Service Date/Time: Saturday, October 28, 2017 08:03 - CONCLUSION: No acute cardiopulmonary abnormality is identified. Chadd Orlando MD Abdomen/Pelvis CT 10/27/17 0000 Signed Impressions: Service Date/Time: Friday, October 27, 2017 21:24 - CONCLUSION: 1. Nodular enlarged heterogeneous liver consistent with known cirrhosis. 2. Recanalization of the umbilical vein and esophageal varices consistent with portal hypertension. 3. Cholelithiasis. 4. Minimal sigmoid colon wall thickening suggesting mild colitis. Clinical correlation is recommended. 5. Degenerative changes and scoliosis of the thoracolumbar spine. Alex Montesinos MD Objective Remarks GENERAL: 52-year-old female currently resting in bed in no acute distress SKIN: Warm and dry. HEAD: Atraumatic. Normocephalic. EYES: Pupils equal and round, reactive, pale conjunctivae.. No scleral icterus. No injection or drainage. ENT: No nasal bleeding or discharge. Mucous membranes dry. NECK: Trachea midline. Jugular veins flat CARDIOVASCULAR: RRR. S1, S2 no S4 without murmur RESPIRATORY: Positive end expiratory wheeze. GASTROINTESTINAL: Abdomen soft, tender to palpation in epigastric region. Voluntary guarding. No rigidity. This is not a surgical abdomen.. Bowel sounds are active and present. MUSCULOSKELETAL: Extremities without clubbing, cyanosis, or edema. No ecchymosis. No obvious deformities. NEUROLOGICAL: Awake and alert oriented 3. No obvious cranial nerve deficits. Motor grossly within normal limits. Five out of 5 muscle strength in the arms and legs. Normal speech. Urinary Catheter: No Assessment to: Continue Vascular Central Line Catheter: No Assessment to: Continue A/P Assessment and Plan NEURO/PSYCH: Pain management/epigastrium History of chronic oxycodone use Alcohol dependence Morphine sulfate 2-4 mg IV q2h as needed for pain Thiamine/folic acid/multivitamin supplementation IV for now. Can be switched to p.o. when appropriate. Monitor for alcohol withdrawal by [facility] protocol Ofirmev 1 g IV every 8 hours as needed fever Holding oxycodone/acetaminophen 10/325 1 tablet every 4-6 hours as needed pain RESP: Tobacco abuse Mild intermittent asthma Nasal cannula to maintain saturations greater than or equal to 92%. Currently on room air Incentive spirometry while awake Continue albuterol inhaler the patient use every 6 hours scheduled. Albuterol aerosols every 2 hours as needed for wheezing Follow-up on chest x-ray 10/29 revealed no acute cardiopulmonary findings Self-education tobacco cessation booklet will be provided Currently not requesting nicotine patch CV: Lactic acidemia secondary to GI bleeding Currently on LR at 84 cc an hour Lactic acidemia secondary to significant blood loss anemia. This is resolved. Status post 3 units PRBCs Lactate is cleared Currently not requiring vasopressors and/or antihypertensives GI: GI bleed Liver cirrhosis Portal hypertension History of esophageal varices LA class C status post banding 4 02/0817 Grade 2 esophageal varices Esophageal stricture Mild sigmoid colitis AST elevation Hyperammonemia Hypoalbuminemia History of sessile polyp NPO for colonoscopy Continue pantoprazole drip at 8 mg an hour and octreotide drips at 50 mcg an hour. Maximum 5 days for acute Serial hemoglobin and transfusion as per below and hematology CT abdomen and pelvis 10/27/17-nodular enlarged liver consistent with cirrhosis. Recanalization of umbilical and esophageal varices consistent with portal hypertension. Cholelithiasis. Minimal sigmoid colon thickening suggesting mild colitis. Propranolol/nadolol/nitrates et al can be added when appropriate Lipase is normal EGD 10/28 - some blood in oropharynx, most likely due to recent intubation with duodenitis second portion-biopsy gastritis/healed ulcer antrum-biopsy stricture in midesophagus -dilated just by passing scope. esophageal varices grade 2-no indication of recent bleed friable mucosa, easy bleeding i tried to pass the xm1 tank driver after was aplied on top of the sope, could not be passed through the stricture due to easy bleeding , aditional dilataton not done Retroflexed views revealed a hiatal hernia FEN/RENAL: Hypocalcemia Hypernatremia Hypokalemia Monitor intake and output. Monitor electrolytes. Replace electrolytes as indicated per ICU electrolyte replacement protocol. Calcium gluconate 1 g IV receipt overnight. A.m. laboratories currently pending ID: Empiric ceftriaxone 1 g IV daily for spontaneous bacterial peritonitis prophylaxis. With known history of ascites Check chest x-ray with history of "upper respiratory infection" 2 weeks Continue nystatin cream 3 times daily Pertinent microbiology/cultures / -blood cultures 2 -pending Negative influenza a HEME: Leukocytosis likely leukemoid type reaction Acute blood loss anemia Elevated INR Low fibrinogen INR 1.6. Receiving phytonadione 10 mg IV daily 3 doses. Repeat INR in a.m. Serial hemoglobin every 6 hours. Status post transfusion of 3 units packed red blood cells overnight 1 dose of cryoprecipitate today Pending follow-up CBC, coags, fibrinogen in a.m. ENDO: Euglycemic Sliding scale insulin only if indicated to maintain euglycemia DERM: History of psoriasis Continue nystatin 3 times daily PROPH: SCDs for DVT prophylaxis. Avoid pharmacologic DVT prophylaxis due to acute GI bleeding. Pantoprazole drip as per above. ACCESS: Utilize peripheral IV. Central line if indicated Full code Level 2 follow-up Lamin Osuna MD October 29, 2017 08:50
[2017-10-29] MEDS ORDERED: SODIUM PHOSPHATE INJ 30 MMOL in SODIUM CHLOR 0.9% 250 ML INJ 240 ML IV PRN (09:00)
[2017-10-29] MEDS ORDERED: POTASSIUM CHLORIDE 25 MEQ EFFERVESCENT TAB PO PRN (09:00)
[2017-10-29] MEDS ORDERED: MAGNESIUM SULFATE INJ 4 GM in SODIUM CHLORIDE 0.9% INJ 92 ML IV PRN (09:00)
[2017-10-29] MEDS ORDERED: MAGNESIUM SULFATE INJ 2 GM in SODIUM CHLORIDE 0.9% INJ 96 ML IV PRN (09:00)
[2017-10-29] MEDS ORDERED: POTASSIUM CHLOR 20 MEQ PREMIX 100 ML IV PRN (09:00)
[2017-10-29] MEDS ORDERED: POTASSIUM CHLOR 40 MEQ PREMIX 100 ML IV PRN ×2 (09:00)
[2017-10-29] MEDS ORDERED: MAGNESIUM OXIDE 400 MG TAB PO PRN (09:00)
[2017-10-29] MEDS ORDERED: POTASSIUM PHOSPHATE MONOBASIC 500 MG TAB PO/TUBE PRN (09:00)
[2017-10-29] MEDS ORDERED: POTASSIUM PHOSPHATE INJ 30 MMOL in SODIUM CHLOR 0.9% 250 ML INJ 250 ML IV PRN (09:00)
[2017-10-29] MEDS ORDERED: POTASSIUM PHOSPHATE MONOBASIC 500 MG TAB PO PRN (09:00)
--- NOTE | 2017-10-29 09:44 | GIPROC ---
[facility] [address] [facility]. [facility], [address] COLONOSCOPY PROCEDURE REPORT EXAM DATE: 10/29/2017 PATIENT NAME: Mila Meza MR #: [id number] BIRTHDATE: 1965 ENDOSCOPIST: Eliu Ng MD ORDER #: [id number] COURTESY VAN DRIVER: Odalis Vital and Sudhakar Lucero STATUS: inpatient INDICATIONS: The patient is a 52 yr old female here for a colonoscopy due to iron deficiency anemia PROCEDURE PERFORMED: Colonoscopy with ablation MEDICATIONS: None and Per Anesthesia. PREP QUALITY: The [place] Bowel Prep Score was Right colon 2, Mid colon 2, and Left colon 2. Total = 6. PREP TYPE:GoLytely ESTIMATED BLOOD LOSS: None CONSENT: The patient understands the risks and benefits of the procedure and understands that these risks include, but are not limited to: sedation, allergic reaction, infection, perforation and/or bleeding. Alternative means of evaluation and treatment include, among others: physical exam, x-rays, and/or surgical intervention. The patient elects to proceed with this endoscopic procedure. medical equipment was checked for proper function. Hand hygiene and appropriate measures for infection prevention was taken. After the risks, benefits and alternatives of the procedure were thoroughly explained, Informed consent was verified, confirmed and timeout was successfully executed by the treatment team. A digital exam revealed external hemorrhoids The Pentax [id number] endoscope was introduced through the anus and advanced to the cecum, which was identified by both the appendix and ileocecal valve. The instrument was then slowly withdrawn as the colon was fully examined. COLON FINDINGS: Medium sized angiodysplastic lesion was found in the ascending colon. Destruction of lesion via ablation was attempted. Bleeding from maneuver treated with cautery. Argon plasma coagulation was used. Care was given to ensure that the lumen was suctioned well. Rectal varices. Retroflexed views revealed internal hemorrhoids and Retroflexed views revealed small internal hemorrhoids The scope was then completely withdrawn from the patient and the procedure terminated. PROCEDURE WITHDRAWAL TIME:6minutes ADVERSE EVENTS: There were no complications. IMPRESSIONS: 1. Medium sized angiodysplastic lesion and in the ascending colon; Destruction of lesion via ablation was attempted 2. Rectal varices 3. Retroflexed views revealed internal hemorrhoids 4. Retroflexed views revealed small internal hemorrhoids 5. Revealed external hemorrhoids RECOMMENDATIONS: 1. Yearly hemoccult 2. High fiber diet RECALL: Return 5 years Colonoscopy Eliu Ng MD eSigned: Eliu Ng MD 10/29/2017 9:44 AM cc: PATIENT NAME: Derrick Mila L MR#: [id number]
[2017-10-29] MEDS ORDERED: DO NOT ADM ANY ANTICOAGULANT DRUGS PRN (09:49)
[2017-10-29] MEDS: PANTOPRAZOLE INJ 80 MG in SODIUM CHLORIDE 0.9% INJ 100 ML IV SCH (11:01)
[2017-10-29] MEDS ORDERED: LIDOCAINE HCL 1% PF 5 ML SYRINGE OTHER ONE (12:00)
[2017-10-29] MEDS ORDERED: PROPOFOL 200 MG/20 ML AMP IV ONE (12:00)
[2017-10-29 14:07] LABS: AUTOMATED NEUTROPHIL # 3.6 TH/MM3 (1.8-7.7); BASOPHIL % 0.6 % (0.0-2.0); EOSINOPHIL # 0.1 TH/MM3 (0-0.4); EOSINOPHIL % 1.1 % (0.0-4.0); HEMATOCRIT 27.6 % (35.0-46.0); HEMOGLOBIN 9.2 GM/DL (11.6-15.3); LYMPH % 25.3 % (9.0-44.0); LYMPHOCYTE # 1.4 TH/MM3 (1.0-4.8); MEAN CELL VOLUME 83.8 FL (80.0-100.0); MEAN CORPUSCULAR HGB CONC 33.4 % (32.0-36.0); MEAN PLATELET VOLUME 8.3 FL (7.0-11.0); MONO % 9.2 % (0.0-8.0); MONOCYTE # 0.5 TH/MM3 (0-0.9); NEUT % 63.8 % (16.0-70.0); PLATELET COUNT 103 TH/MM3 (150-450); RED CELL DISTRIBUTION WIDTH 19.9 % (11.6-17.2); WHITE BLOOD COUNT 5.6 TH/MM3 (4.0-11.0)
[2017-10-29 14:59] LABS: INTERNATIONAL NORMALIZED RATIO 1.1 RATIO; PROTHROMBIN TIME - PATIENT 11.6 SEC (9.8-11.6)
[2017-10-29 15:18] LABS: ALBUMIN 2.7 GM/DL (3.4-5.0); ALKALINE PHOSPHATASE 101 U/L (45-117); ALT (GPT) 51 U/L (10-53); AST (GOT) 128 U/L (15-37); BLOOD UREA NITROGEN 10 MG/DL (7-18); CALCIUM 7.5 MG/DL (8.5-10.1); CHLORIDE 109 MEQ/L (98-107); CREATININE 0.61 MG/DL (0.50-1.00); GLOMERULAR FILTRATION RATE 104 ML/MIN (>89); GLUCOSE,RANDOM 127 MG/DL (74-106); MAGNESIUM 1.7 MG/DL (1.5-2.5); PHOSPHORUS 2.1 MG/DL (2.5-4.9); SODIUM (NA) 143 MEQ/L (136-145); TOTAL BILIRUBIN ADULT 0.9 MG/DL (0.2-1.0)
[2017-10-29] MEDS: PANTOPRAZOLE SODIUM 40 MG VIAL IV PUSH SCH (18:00)
[2017-10-29 18:41] LABS: HEMATOCRIT 28.5 % (35.0-46.0); HEMOGLOBIN 9.3 GM/DL (11.6-15.3)
[2017-10-29] MEDS: cefTRIAXone INJ 1,000 MG in SODIUM CHLORIDE 0.9% INJ 100 ML IV SCH (20:05)
[2017-10-29] MEDS: THIAMINE INJ 100 MG in SODIUM CHLORIDE 0.9% INJ 100 ML IV SCH (20:06)
[2017-10-29] MEDS: MULTIVITAMIN INJ 10 ML, FOLIC ACID INJ 1 MG in SODIUM CHLORID 0.9% 500 ML INJ 500 ML IV SCH (20:06)
[2017-10-30] VITALS (11 sets, daily range): BP systolic 95–138; BP diastolic 54–83; PULSE 74–102; RESP 13–38; TEMP 97.5–98.4; O2SAT 90–100
[2017-10-30 00:57] LABS: HEMATOCRIT 28.1 % (35.0-46.0); HEMOGLOBIN 9.4 GM/DL (11.6-15.3)
[2017-10-30] MEDS: CHLORHEXIDINE GLUCONATE 2 % 1 PACK (2 CLOTHS) TOP SCH (03:18)
[2017-10-30] MEDS: MORPHINE SULFATE 4 MG/ML INJ IV PUSH PRN ×9 (03:19→23:28)
[2017-10-30] MEDS: ALBUTEROL SULFATE 90 MCG/ACT HFA 8 GM INHALER INH SCH ×3 (05:53→18:21)
[2017-10-30] MEDS: PANTOPRAZOLE SODIUM 40 MG VIAL IV PUSH SCH ×2 (05:54→18:18)
[2017-10-30 06:15] LABS: INTERNATIONAL NORMALIZED RATIO 1.1 RATIO; PROTHROMBIN TIME - PATIENT 10.8 SEC (9.8-11.6)
[2017-10-30 06:23] LABS: AUTOMATED NEUTROPHIL # 3.1 TH/MM3 (1.8-7.7); BASOPHIL % 0.7 % (0.0-2.0); EOSINOPHIL # 0.1 TH/MM3 (0-0.4); HEMOGLOBIN 9.4 GM/DL (11.6-15.3); LYMPH % 24.5 % (9.0-44.0); LYMPHOCYTE # 1.2 TH/MM3 (1.0-4.8); MEAN CELL VOLUME 84.5 FL (80.0-100.0); MEAN CORPUSCULAR HEMOGLOBIN 28.4 PG (27.0-34.0); MEAN CORPUSCULAR HGB CONC 33.6 % (32.0-36.0); MEAN PLATELET VOLUME 8.4 FL (7.0-11.0); MONO % 6.9 % (0.0-8.0); MONOCYTE # 0.3 TH/MM3 (0-0.9); NEUT % 64.9 % (16.0-70.0); PLATELET COUNT 108 TH/MM3 (150-450); RED BLOOD COUNT 3.31 MIL/MM3 (4.00-5.30); RED CELL DISTRIBUTION WIDTH 20.6 % (11.6-17.2); WHITE BLOOD COUNT 4.8 TH/MM3 (4.0-11.0)
[2017-10-30 06:36] LABS: ALBUMIN 2.5 GM/DL (3.4-5.0); ALKALINE PHOSPHATASE 104 U/L (45-117); ALT (GPT) 65 U/L (10-53); AST (GOT) 165 U/L (15-37); BICARBONATE 27.9 MEQ/L (21.0-32.0); BLOOD UREA NITROGEN 6 MG/DL (7-18); CALCIUM 7.5 MG/DL (8.5-10.1); CHLORIDE 110 MEQ/L (98-107); CREATININE 0.48 MG/DL (0.50-1.00); GLOMERULAR FILTRATION RATE 137 ML/MIN (>89); GLUCOSE,RANDOM 93 MG/DL (74-106); MAGNESIUM 1.7 MG/DL (1.5-2.5); PHOSPHORUS 3.2 MG/DL (2.5-4.9); SODIUM (NA) 146 MEQ/L (136-145); TOTAL BILIRUBIN ADULT 0.8 MG/DL (0.2-1.0); TOTAL PROTEIN 5.9 GM/DL (6.4-8.2)
[2017-10-30] MEDS: SODIUM CHLORIDE 0.9% FLUSH 10 ML FLUSH IV FLUSH SCH ×2 (07:49→21:00)
[2017-10-30] MEDS: POTASSIUM CHLOR 20 MEQ PREMIX 100 ML IV PRN ×3 (07:51→15:29)
[2017-10-30] MEDS: NYSTATIN 100,000 UNIT/GM CREAM 15 GM TOPICAL SCH ×3 (09:00→18:21)
--- NOTE | 2017-10-30 12:24 | HHI.GIFU ---
Subjective Remarks Pt resting in bed and son at bedside Complaining of back pain Denies any continued nausea or vomiting since GI procedures Had one BM yesterday morning, states may have had some residual dark stool Tolerating PO (Angélica Paz) Objective Vitals I&O Vital Signs Date Time Temp Pulse Resp B/P (MAP) Pulse Ox O2 Delivery O2 Flow Rate FiO2 10/30/17 12:00 97.5 95 22 118/70 (86) 95 10/30/17 12:00 95 10/30/17 10:00 75 10/30/17 08:00 98.2 102 14 116/75 (89) 93 10/30/17 08:00 102 10/30/17 06:00 84 10/30/17 04:00 98.0 81 16 95/54 (68) 100 10/30/17 04:00 81 10/30/17 03:24 16 10/30/17 02:02 82 10/30/17 00:00 97.6 93 16 134/76 (95) 90 10/29/17 22:00 83 10/29/17 20:00 83 10/29/17 20:00 98.0 83 20 127/88 (101) 99 10/29/17 18:00 84 10/29/17 16:00 93 10/29/17 16:00 98.3 93 25 138/82 (100) 96 10/29/17 16:00 98.3 10/29/17 14:00 84 I/O 10/29/17 10/29/17 10/29/17 10/30/17 10/30/17 10/30/17 07:00 15:00 23:00 07:00 15:00 23:00 Intake Total 150 ml 2260 ml 2547 ml 1060 ml Output Total 2700 ml Balance 150 ml 2260 ml -153 ml 1060 ml Intake Oral 720 ml 1200 ml IV Total 50 ml 1200 ml 1347 ml 1060 ml Cryoprecipitate 340 ml Other 100 ml Output Urine Total 2700 ml Stool Total 0 ml # Voids 4 0 6 # Bowel Movements 4 1 Laboratory Laboratory Tests Test 10/29/17 13:38 10/29/17 14:02 10/29/17 14:07 10/29/17 18:28 White Blood Count 5.6 Red Blood Count 3.30 Hemoglobin 9.2 9.3 Hematocrit 27.6 28.5 Mean Corpuscular Volume 83.8 Mean Corpuscular Hemoglobin 28.0 Mean Corpuscular Hemoglobin Concent 33.4 Red Cell Distribution Width 19.9 Platelet Count 103 Mean Platelet Volume 8.3 Neutrophils (%) (Auto) 63.8 Lymphocytes (%) (Auto) 25.3 Monocytes (%) (Auto) 9.2 Eosinophils (%) (Auto) 1.1 Basophils (%) (Auto) 0.6 Neutrophils # (Auto) 3.6 Lymphocytes # (Auto) 1.4 Monocytes # (Auto) 0.5 Eosinophils # (Auto) 0.1 Basophils # (Auto) 0.0 CBC Comment DIFF FINAL Differential Comment Lactic Acid Level 1.6 Ammonia 47 Prothrombin Time 11.6 Prothromb Time International Ratio 1.1 Activated Partial Thromboplast Time 22.0 Fibrinogen 257 Blood Urea Nitrogen 10 Creatinine 0.61 Random Glucose 127 Total Protein 6.0 Albumin 2.7 Calcium Level 7.5 Phosphorus Level 2.1 Magnesium Level 1.7 Alkaline Phosphatase 101 Aspartate Amino Transf (AST/SGOT) 128 Alanine Aminotransferase (ALT/SGPT) 51 Lactate Dehydrogenase 271 Total Bilirubin 0.9 Sodium Level 143 Potassium Level 3.2 Chloride Level 109 Carbon Dioxide Level 27.0 Anion Gap 7 Estimat Glomerular Filtration Rate 104 Total Creatine Kinase 315 Creatine Kinase MB 12.6 Creatine Kinase MB % 4.0 Amylase Level 28 Lipase 139 Test 10/30/17 00:18 10/30/17 04:39 Hemoglobin 9.4 9.4 Hematocrit 28.1 28.0 White Blood Count 4.8 Red Blood Count 3.31 Mean Corpuscular Volume 84.5 Mean Corpuscular Hemoglobin 28.4 Mean Corpuscular Hemoglobin Concent 33.6 Red Cell Distribution Width 20.6 Platelet Count 108 Mean Platelet Volume 8.4 Neutrophils (%) (Auto) 64.9 Lymphocytes (%) (Auto) 24.5 Monocytes (%) (Auto) 6.9 Eosinophils (%) (Auto) 3.0 Basophils (%) (Auto) 0.7 Neutrophils # (Auto) 3.1 Lymphocytes # (Auto) 1.2 Monocytes # (Auto) 0.3 Eosinophils # (Auto) 0.1 Basophils # (Auto) 0.0 CBC Comment DIFF FINAL Differential Comment Prothrombin Time 10.8 Prothromb Time International Ratio 1.1 Activated Partial Thromboplast Time 21.9 Fibrinogen 257 Blood Urea Nitrogen 6 Creatinine 0.48 Random Glucose 93 Total Protein 5.9 Albumin 2.5 Calcium Level 7.5 Phosphorus Level 3.2 Magnesium Level 1.7 Alkaline Phosphatase 104 Aspartate Amino Transf (AST/SGOT) 165 Alanine Aminotransferase (ALT/SGPT) 65 Total Bilirubin 0.8 Sodium Level 146 Potassium Level 3.0 Chloride Level 110 Carbon Dioxide Level 27.9 Anion Gap 8 Estimat Glomerular Filtration Rate 137 Date/Time Source Procedure Growth Status 10/27/17 23:38 Blood Peripheral Aerobic Blood Culture - Preliminary NO GROWTH IN 3 DAYS Resulted 10/27/17 23:38 Blood Peripheral Anaerobic Blood Culture - Preliminary NO GROWTH IN 3 DAYS Resulted 10/28/17 09:28 Nasal Aspirate Influenza Types A,B Antigen (DILMA) - Final NEGATIVE FOR FLU A AND B ANTIGEN.... Complete Imaging Last Impressions Chest X-Ray 10/28/17 0000 Signed Impressions: Service Date/Time: Saturday, October 28, 2017 08:03 - CONCLUSION: No acute cardiopulmonary abnormality is identified. Chadd Orlando MD Abdomen/Pelvis CT 10/27/17 0000 Signed Impressions: Service Date/Time: Friday, October 27, 2017 21:24 - CONCLUSION: 1. Nodular enlarged heterogeneous liver consistent with known cirrhosis. 2. Recanalization of the umbilical vein and esophageal varices consistent with portal hypertension. 3. Cholelithiasis. 4. Minimal sigmoid colon wall thickening suggesting mild colitis. Clinical correlation is recommended. 5. Degenerative changes and scoliosis of the thoracolumbar spine. Alex Montesinos MD Physical Exam HEENT: Normocephalic; atraumatic CHEST: Even/unlabored CARDIAC: RRR ABDOMEN: Soft, nontender; bowel sounds active ROAD CONDUCTOR: No focal deficits; alert and oriented times three. (Angélica Paz DRAPERY SEAMSTRESS) Assessment and Plan Plan Assessment: - Coffee ground emesis and melena per HPI- epigastric burning. H/H currently 5.8/19.2 - 3 U PRBCs ordered per [facility] History of upper GIB- last EGD in January 2017 with active variceal bleeding- banding x 4- pt has not followed up with GI since then because of insurance issues. Currently on Protonix and Octreotide gtt - Hematochezia- reports one episode of hematochezia prior to transfer to the hospital- denies any stool mixed in. Last colonoscopy August 2016 --> Medium sized sessile polyp in the ascending colon, 2 large semi-pedunculated polyps in the sigmoid colon. Pathology (sigmoid colon polyp) tubulovillous adenoma (ascending colon polyp) hyperplastic. CT abdomen and pelvis also noted some thickening to the sigmoid colon. Of note, pt has been on Amoxicillin for the past two weeks for a respiratory infection. Reports fever and chills. Denies diarrhea. - Cirrhosis secondary to previous ETOH abuse. Current labs: AST-100 ALT-41 T bili-1.3 Alk phos-103 No thrombocytopenia Coagulopathy- INR 1.6- Vit K Hypoalbuminemia- albumin-2.2 Hepatitis panel negative Pt reports last ETOH was three days ago, very vague about how much and how often she drinks. CT abdomen and pelvis W IV contrast (10/27) --> Nodular enlarged heterogeneous liver consistent with known cirrhosis. Recanalization of the umbilical vein and esophageal varices consistent with portal hypertension. Cholelithiasis. Minimal sigmoid colon wall thickening suggesting mild colitis - Leukocytosis and elevated lactic acid - Rocephin (10/30) Pt resting in bed, and son at bedside. Denies any continued nausea or vomiting. 1 BM yesterday morning, thinks may have had some residual dark stools. H/H remains stable- 9.4/28 Some increase in LFTs today, currently AST-165 ALT-65 Alk phos-104 T bili-0.8 Thrombocytopenia- platelets-108 EGD (10/28) --> Some blood in the oropharynx, most likely due to recent intubation. Duodenitis, second portion. Gastritis/healed ulcer in the antrum. Stricture in the midesophagus- dilated just by passing the scope. Esophageal varices grade 2 no indication of recent bleed, friable mucosa, easy bleeding. Unable to pass the gis software developer, could not pass through stricture. Due to easy bleeding additional dilatation not done. Hiatal hernia. Colonoscopy (10/29) Medium sized angiodysplastic lesion in the ascending colon, destruction of the lesion via ablation was attempted. Rectal varices. Internal hemorrhoids, external hemorrhoids. Plan: EGD biopsy pending Monitor H/H Protonix Advised pt to stop ETOH Avoid hepatotoxins Electrolyte replacement per attending Will order liver olvera regarding increase in LFTs Further recommendations based on findings of above and clinical course Pt has been seen and examined by myself and Dr. Ng and this note is written on his behalf (Angélica Paz) Physician Comments Seen and examined with ABA, no active bleeding. S/p egd/colonoscopy. Will need repeat egd/dilation/banding. Esophagus very friable at this time. Treat with PPI , repeat egd in 04 weeks unless develops repeat bleeding. Propanolol 20mg daily. No Nsaids. (Eliu Ng MD) Angélica Paz October 30, 2017 12:23 Eliu Ng MD October 30, 2017 17:16
--- NOTE | 2017-10-30 13:29 | HHI.PR ---
Subjective Remarks No further GI bleeding. Mild nausea. Tolerating diet. A febrile. Objective Vitals Vital Signs Date Time Temp Pulse Resp B/P (MAP) Pulse Ox O2 Delivery O2 Flow Rate FiO2 10/30/17 12:00 97.5 95 22 118/70 (86) 95 10/30/17 12:00 95 10/30/17 10:00 75 10/30/17 08:00 98.2 102 14 116/75 (89) 93 10/30/17 08:00 102 10/30/17 06:00 84 10/30/17 04:00 98.0 81 16 95/54 (68) 100 10/30/17 04:00 81 10/30/17 03:24 16 10/30/17 02:02 82 10/30/17 00:00 97.6 93 16 134/76 (95) 90 10/29/17 22:00 83 10/29/17 20:00 83 10/29/17 20:00 98.0 83 20 127/88 (101) 99 10/29/17 18:00 84 10/29/17 16:00 93 10/29/17 16:00 98.3 93 25 138/82 (100) 96 10/29/17 16:00 98.3 10/29/17 14:00 84 I/O 10/29/17 10/29/17 10/29/17 10/30/17 10/30/17 10/30/17 07:00 15:00 23:00 07:00 15:00 23:00 Intake Total 150 ml 2260 ml 2547 ml 1060 ml Output Total 2700 ml Balance 150 ml 2260 ml -153 ml 1060 ml Intake Oral 720 ml 1200 ml IV Total 50 ml 1200 ml 1347 ml 1060 ml Cryoprecipitate 340 ml Other 100 ml Output Urine Total 2700 ml Stool Total 0 ml # Voids 4 0 6 # Bowel Movements 4 1 Result Diagram: 10/30/17 0439 10/30/17 0439 Imaging Last Impressions Chest X-Ray 10/28/17 0000 Signed Impressions: Service Date/Time: Saturday, October 28, 2017 08:03 - CONCLUSION: No acute cardiopulmonary abnormality is identified. Chadd Orlando MD Abdomen/Pelvis CT 10/27/17 0000 Signed Impressions: Service Date/Time: Friday, October 27, 2017 21:24 - CONCLUSION: 1. Nodular enlarged heterogeneous liver consistent with known cirrhosis. 2. Recanalization of the umbilical vein and esophageal varices consistent with portal hypertension. 3. Cholelithiasis. 4. Minimal sigmoid colon wall thickening suggesting mild colitis. Clinical correlation is recommended. 5. Degenerative changes and scoliosis of the thoracolumbar spine. Alex Montesinos MD Objective Remarks Awake alert and oriented 3. NAD. Anicteric sclera. Clear lungs bilaterally. S1-S2 present with regular rate and rhythm, no murmurs or gallops. Abdomen is soft, nontender nondistended. No edema in bilateral extremities. A/P Problem List: (1) Lactic acidosis ICD Code: E87.2 - Acidosis Status: Acute (2) Alcohol dependence ICD Code: F10.20 - Alcohol dependence, uncomplicated Status: Acute (3) Acute blood loss anemia ICD Code: D62 - Acute posthemorrhagic anemia Status: Acute (4) Coagulopathy ICD Code: D68.9 - Coagulation defect, unspecified Status: Acute (5) Elevated INR ICD Code: R79.1 - Abnormal coagulation profile Status: Acute (6) GI bleed ICD Code: K92.2 - Gastrointestinal hemorrhage, unspecified Status: Acute (7) Liver cirrhosis ICD Code: K74.60 - Unspecified cirrhosis of liver Status: Acute (8) Colitis ICD Code: K52.9 - Noninfective gastroenteritis and colitis, unspecified Status: Acute (9) Portal hypertension ICD Code: K76.6 - Portal hypertension Status: Acute Assessment and Plan Pain management/epigastrium History of chronic oxycodone use Alcohol dependence Morphine sulfate 2-4 mg IV q2h as needed for pain Thiamine/folic acid/multivitamin supplementation IV for now. Can be switched to p.o. when appropriate. Monitor for alcohol withdrawal by [facility] protocol Ofirmev 1 g IV every 8 hours as needed fever Holding oxycodone/acetaminophen 10/325 1 tablet every 4-6 hours as needed pain 5/8 discontinue IV morphine for pain. Change IV thiamine, folic acid and multivitamins to oral formulation. Tobacco abuse Mild intermittent asthma Nasal cannula to maintain saturations greater than or equal to 92%. Currently on room air Incentive spirometry while awake Continue albuterol inhaler the patient use every 6 hours scheduled. Albuterol aerosols every 2 hours as needed for wheezing Follow-up on chest x-ray 5/7 revealed no acute cardiopulmonary findings Self-education tobacco cessation booklet will be provided Currently not requesting nicotine patch Lactic acidemia secondary to GI bleeding Status post treatment with lactated ranges. Lactic acidemia secondary to significant blood loss anemia. This is resolved. Status post 3 units PRBCs Lactate is cleared Currently not requiring vasopressors and/or antihypertensives GI bleed Liver cirrhosis Portal hypertension History of esophageal varices LA class C status post banding 4 02/0817 Grade 2 esophageal varices Esophageal stricture Mild sigmoid colitis AST elevation Hyperammonemia Hypoalbuminemia History of sessile polyp NPO for colonoscopy SP pantoprazole drip at 8 mg an hour and octreotide drips at 50 mcg an hour. Maximum 5 days for acute Serial hemoglobin and transfusion as per below and hematology CT abdomen and pelvis 10/27/17-nodular enlarged liver consistent with cirrhosis. Recanalization of umbilical and esophageal varices consistent with portal hypertension. Cholelithiasis. Minimal sigmoid colon thickening suggesting mild colitis. Propranolol/nadolol/nitrates et al can be added when appropriate Lipase is normal EGD 10/28 - some blood in oropharynx, most likely due to recent intubation with duodenitis second portion-biopsy gastritis/healed ulcer antrum-biopsy stricture in midesophagus -dilated just by passing scope. esophageal varices grade 2-no indication of recent bleed friable mucosa, easy bleeding i tried to pass the bird keeper after was aplied on top of the sope, could not be passed through the stricture due to easy bleeding , aditional dilataton not done Retroflexed views revealed a hiatal hernia Colonoscopy 10/29 -showed right colon AV malformations, rectal varices and internal hemorrhoids. Management as per gastroenterology. LFTs trending up. Discussed with GI. Will do further workup. As per GI recommendations the patient will need repeat EGD/dilation forces banding. Esophagus very friable at this time. Treated with PPI repeat EGD in 4 weeks unless the patient develops repeat bleeding. Hypocalcemia Hypernatremia Hypokalemia Monitor intake and output. Monitor electrolytes. Replace electrolytes as indicated per ICU electrolyte replacement protocol. Potassium still low at 3.0. SP Empiric ceftriaxone 1 g IV daily for spontaneous bacterial peritonitis prophylaxis. With known history of ascites Check chest x-ray with history of "upper respiratory infection" 2 weeks Continue nystatin cream 3 times daily Pertinent microbiology/cultures 10/27 -blood cultures negative 3. Negative influenza a Leukocytosis likely leukemoid type reaction Acute blood loss anemia Elevated INR Low fibrinogen INR 1.6. Receiving phytonadione 10 mg IV daily 3 doses. Repeat INR in a.m. Serial hemoglobin every 6 hours. Status post transfusion of 3 units packed red blood cells overnight Status post 2 doses of fresh frozen plasma. Status post infusion of 1 unit of cryoprecipitate. Euglycemic Sliding scale insulin only if indicated to maintain euglycemia DERM: History of psoriasis Continue nystatin 3 times daily PROPH: SCDs for DVT prophylaxis. Avoid pharmacologic DVT prophylaxis due to acute GI bleeding. On PPI. Discharge Planning Okay to transfer to the medical floor with telemetry. Problem Qualifiers (1) GI bleed: Qualified Codes: K92.1 - Amando Luz MD October 30, 2017 13:29
[2017-10-30] MEDS: cefTRIAXone INJ 1,000 MG in SODIUM CHLORIDE 0.9% INJ 100 ML IV SCH (21:28)
[2017-10-30] MEDS: MULTIVITAMIN INJ 10 ML, FOLIC ACID INJ 1 MG in SODIUM CHLORID 0.9% 500 ML INJ 500 ML IV SCH (23:28)
[2017-10-31] VITALS: BP 116/72; PULSE 85; RESP 18; TEMP 98.9; O2SAT 93
[2017-10-31] MEDS: MORPHINE SULFATE 4 MG/ML INJ IV PUSH PRN ×4 (01:22→08:08)
[2017-10-31] MEDS: CHLORHEXIDINE GLUCONATE 2 % 1 PACK (2 CLOTHS) TOP SCH (01:29)
[2017-10-31] MEDS: PANTOPRAZOLE SODIUM 40 MG VIAL IV PUSH SCH (05:50)
[2017-10-31] MEDS: ALBUTEROL SULFATE 90 MCG/ACT HFA 8 GM INHALER INH SCH ×2 (05:57)
[2017-10-31 07:47] LABS: HEMATOCRIT 29.3 % (35.0-46.0); HEMOGLOBIN 9.6 GM/DL (11.6-15.3); MEAN CELL VOLUME 85.2 FL (80.0-100.0); MEAN CORPUSCULAR HEMOGLOBIN 27.8 PG (27.0-34.0); MEAN CORPUSCULAR HGB CONC 32.6 % (32.0-36.0); MEAN PLATELET VOLUME 8.7 FL (7.0-11.0); PLATELET COUNT 99 TH/MM3 (150-450); RED BLOOD COUNT 3.44 MIL/MM3 (4.00-5.30); RED CELL DISTRIBUTION WIDTH 20.7 % (11.6-17.2); WHITE BLOOD COUNT 5.2 TH/MM3 (4.0-11.0)
[2017-10-31 08:00] VITALS: BP 136/83; PULSE 90; RESP 19; TEMP 98; O2SAT 96
[2017-10-31] MEDS: NYSTATIN 100,000 UNIT/GM CREAM 15 GM TOPICAL SCH (08:08)
[2017-10-31] MEDS: SODIUM CHLORIDE 0.9% FLUSH 10 ML FLUSH IV FLUSH SCH (08:08)
[2017-10-31 08:13] LABS: ALBUMIN 2.5 GM/DL (3.4-5.0); AST (GOT) 71 U/L (15-37); BICARBONATE 30.3 MEQ/L (21.0-32.0); BLOOD UREA NITROGEN 2 MG/DL (7-18); CALCIUM 8.1 MG/DL (8.5-10.1); CHLORIDE 104 MEQ/L (98-107); CREATININE 0.48 MG/DL (0.50-1.00); GLOMERULAR FILTRATION RATE 137 ML/MIN (>89); GLUCOSE,RANDOM 112 MG/DL (74-106); SODIUM (NA) 142 MEQ/L (136-145)
[2017-10-31 08:14] LABS: ALT (GPT) 49 U/L (10-53)
[2017-10-31 08:16] LABS: ALKALINE PHOSPHATASE 120 U/L (45-117); TOTAL BILIRUBIN ADULT 0.5 MG/DL (0.2-1.0); TOTAL PROTEIN 5.7 GM/DL (6.4-8.2)
[2017-10-31] MEDS ORDERED: MULT-65 PO (10:11)
[2017-10-31] MEDS ORDERED: FOLI400T PO (10:11)
[2017-10-31] MEDS ORDERED: VITA100T54 PO (10:11)
[2017-10-31] MEDS ORDERED: PROT40TA PO (10:11)
[2017-10-31] MEDS ORDERED: oxyCODONE/ACETAMINOPHEN 10 MG/325 MG TAB PO PRN (10:15)
--- NOTE | 2017-10-31 10:18 | HHI.DCPOC ---
Discharge Care Plan Diagnosis: (1) GI bleeding (2) Lactic acidemia (3) Liver cirrhosis (4) Esophageal varices (5) Esophageal stricture (6) Colitis (7) Transaminitis (8) Hyperammonemia (9) Colon AV malformation (10) Hypoalbuminemia (11) Hypokalemia (12) Acute blood loss anemia (13) Psoriasis Goals to Promote Your Health * To prevent worsening of your condition and complications * To maintain your health at the optimal level Directions to Meet Your Goals Take your medications as prescribed Follow your dietary instruction Follow activity as directed Keep your appointments as scheduled Take your immunizations and boosters as scheduled If your symptoms worsen call your PCP, if no PCP go to Urgent Care Center or Emergency Room Smoking is Dangerous to Your Health. Avoid second hand smoke Call the 24-hour hour crisis hotline for domestic abuse at Amando Ward MD October 31, 2017 10:18
[2017-10-31] MEDS ORDERED: LACT10SO PO (10:29)
[2017-10-31] MEDS ORDERED: POTASSIUM CHLORIDE 10 MEQ CONTROLLED RELEASE TAB PO ONE (11:00)
[2017-10-31 12:00] VITALS: BP 115/76; PULSE 96; RESP 17; TEMP 97.8; O2SAT 95
== END 2017-10-31 13:03 | disposition home health service (06) | DRG 377 ==
LOC: NEPC 18:37 → NEDA 20:32 → HIME 22:50 → N07A 10-30 17:00
PROVIDERS: ADMIT Hospitalist; ATTEND Hospitalist
PROC: 30233N1 Transfusion of Nonautologous Red Blood Cells into Peripheral Vein, Percutaneous Approach (ICD-10-PCS; 2017-10-27)
PROC: 0DB98ZX Excision of Duodenum, Via Natural or Artificial Opening Endoscopic, Diagnostic (ICD-10-PCS; 2017-10-28)
PROC: 0DB78ZX Excision of Stomach, Pylorus, Via Natural or Artificial Opening Endoscopic, Diagnostic (ICD-10-PCS; 2017-10-28)
PROC: 30233K1 Transfusion of Nonautologous Frozen Plasma into Peripheral Vein, Percutaneous Approach (ICD-10-PCS; 2017-10-28)
PROC: 0D5K8ZZ Destruction of Ascending Colon, Via Natural or Artificial Opening Endoscopic (ICD-10-PCS; principal; 2017-10-29 09:21)
DX: K55.21 Angiodysplasia of colon with hemorrhage (principal); R57.8 Other shock; I85.00 Esophageal varices without bleeding; E87.0 Hyperosmolality and hypernatremia; D68.9 Coagulation defect, unspecified; E87.2 Acidosis; K76.6 Portal hypertension; D62 Acute posthemorrhagic anemia; K70.30 Alcoholic cirrhosis of liver without ascites; K52.9 Noninfective gastroenteritis and colitis, unspecified; R00.0 Tachycardia, unspecified; E88.09 Other disorders of plasma-protein metabolism, not elsewhere classified; E83.51 Hypocalcemia; K29.80 Duodenitis without bleeding; D72.829 Elevated white blood cell count, unspecified; L40.9 Psoriasis, unspecified; K80.20 Calculus of gallbladder without cholecystitis without obstruction; E87.6 Hypokalemia; K22.2 Esophageal obstruction; I86.8 Varicose veins of other specified sites; K29.70 Gastritis, unspecified, without bleeding; D69.6 Thrombocytopenia, unspecified; I10 Essential (primary) hypertension; F10.20 Alcohol dependence, uncomplicated; K44.9 Diaphragmatic hernia without obstruction or gangrene; R74.0 Nonspecific elevation of levels of transaminase and lactic acid dehydrogenase [LDH]; K64.4 Residual hemorrhoidal skin tags; K64.8 Other hemorrhoids; J06.9 Acute upper respiratory infection, unspecified; G89.4 Chronic pain syndrome; M54.9 Dorsalgia, unspecified; J45.20 Mild intermittent asthma, uncomplicated; F17.210 Nicotine dependence, cigarettes, uncomplicated; Z86.010 Personal history of colon polyps; Z98.1 Arthrodesis status; Z87.11 Personal history of peptic ulcer disease
CPT/HCPCS: 36430; 71045; 74177; 80053; 80074; 80307; 81001; 82140; 82150; 82550; 82552; 83605; 83615; 83690; 83735; 84100; 84132; 84155; 85014; 85018; 85025; 85027; 85384; 85610; 85730; 86850; 86900; 86901; 86920; 86927; 86965; 87040; 87641; 87804; 88305; 88312; 94150; 99291; C9113; J0330; J0610; J0696; J1100; J2060; J2270; J2354; J2370; J2405; J3010; J3411; J3430; J3480; J7030; J7040; J7050; P9016; P9017; Q9967

== ENCOUNTER 2018-02-25 11:41 | Inpatient (IN) ==
[2018-02-25] MEDS ORDERED: Sod Chloride 0.9% Inj 1,000 ML IV.SIG ONE (11:51)
--- NOTE | 2018-02-25 12:15 | XR ---
EXAM DATE: 02/25/2018 12:12 PM EDT AGE/SEX: 52 years / Female INDICATIONS: Short of breath. Vomiting. Coughing. Hemoptysis. CLINICAL DATA: This is the patient's initial encounter. Patient reports that signs and symptoms have been present for 2 days and indicates a pain score of 0/10. MEDICAL/SURGICAL HISTORY: None. None. COMPARISON: [facility] [place], CHEST SINGLE AP, 10/28/2017. . FINDINGS: A single AP view of the chest demonstrates the lungs to be symmetrically aerated without evidence of mass, infiltrate or effusion. The cardiomediastinal contours are unremarkable. Osseous structures a re intact. CONCLUSION: Negative examination. Electronically signed by: Santi Loo MD 02/25/2018 12:14 PM EDT
[2018-02-25 12:23] LABS: Baso # (Auto) 0.1 th/mm3 (0.0-0.2); Baso % (Auto) 0.9 % (0.0-2.0); Eos % (Auto) 0.1 % (0.0-4.0); Hematocrit 30.3 % (35.0-46.0); Hemoglobin 9.4 gm/dL (11.6-15.3); Lymph # (Auto) 3.1 th/mm3 (1.0-4.8); Lymph % (Auto) 24.6 % (9.0-44.0); Mean Corpuscular HGB Conc 31.1 % (32.0-36.0); Mean Corpuscular Hemoglobin 25.6 pg (27.0-34.0); Mean Corpuscular Volume 82.3 fL (80.0-100.0); Mean Platelet Volume 8.9 fL (7.0-11.0); Mono # (Auto) 1.4 th/mm3 (0.0-0.9); Mono % (Auto) 11.3 % (0.0-8.0); Neut % (Auto) 63.1 % (16.0-70.0); Platelet Count 302 th/mm3 (150-450); Red Blood Count 3.68 mil/mm3 (4.00-5.30); Red Cell Distribution Width 21.1 % (11.6-17.2); White Blood Count 12.7 th/mm3 (4.0-11.0)
--- NOTE | 2018-02-25 12:30 | ED ---
HPI General Chief complaint: GI Bleed Stated complaint: Poss GI bleed Time Seen by Provider: 02/25/18 11:51 Source: patient, EMS, RN notes reviewed and old records reviewed Mode of arrival: EMS History of Present Illness HPI Narrative: 52-year-old female presents by ambulance for coffee-ground emesis over the past day. She states Dr. Pagan is her GI specialist. She states she is also having upper abdominal pain. She denies other complaints. History is limited on initial examination given active emesis. MD complaint: blood streaked emesis and coffee ground emesis Onset (ago): day(s) Related Data Allergies Allergy/AdvReac Type Severity Reaction Status Date / Time diclofenac AdvReac Severe headache Unverified 02/06/17 12:15 Review of Systems ROS Unobtainable ROS Unobtainable: other (Clinical acuity) [facility] Medical History Medical History Chronic pain (Acute) History of GI bleed (Acute) Social History Social History Substance History: No History of Abuse Second Hand Smoke Exposure: No Smoking Status: Current every day smoker Tobacco Type: Cigarettes How Often Do You Have a Drink Containing Alcohol: Monthly or less Recent Travel in [facility] within the Last 8 Weeks: No Recent Out of Country Travel within the Last 8 Weeks: No Immunization History Tetanus Immunization: Unsure Hx Influenza Vaccine This Season: No Exam Narrative Exam Narrative: GENERAL: 52 y/o female who appears uncomfortable SKIN: Focused skin assessment warm/dry. HEAD: Atraumatic. Normocephalic. EYES: Pupils equal and round. No scleral icterus. No injection or drainage. ENT: No nasal bleeding or discharge. Mucous membranes pink and moist. NECK: Trachea midline. CARDIOVASCULAR: Regular rate and rhythm. RESPIRATORY: No accessory muscle use. Clear to auscultation. Breath sounds equal bilaterally. GASTROINTESTINAL: Abdomen soft, mild diffusely tender MUSCULOSKELETAL: No obvious deformities. No clubbing. No cyanosis. NEUROLOGICAL: Awake and alert. moves all extremities. Normal speech Course Reevaluation(s) Reevaluation #1: patient updated and agrees to admit and transfusion Reevaluation #2: Blood pressure has start to drop will dose with 1 unit of blood and monitor. Patient without further emesis after Zofran. Consultations Consultation #1: gi agrees to consult and plan, dr lamas Consultation #2: dr viveros agrees to admit Initial Documented Vital Signs Pulse Rate 117 H 02/25/18 11:52 Respiratory Rate 16 02/25/18 11:52 Blood Pressure 120/58 L 02/25/18 11:52 Pulse Oximetry 96 02/25/18 11:52 Last Documented Vital Signs Pulse Rate 96 H 02/25/18 13:31 Respiratory Rate 22 02/25/18 13:31 Blood Pressure 95/53 L 02/25/18 13:31 Pulse Oximetry 100 02/25/18 13:33 Critical Care Time Critical Care Time: Yes Total Critical Care Time: 31 Attestation: Aggregate critical care time was 31 minutes. Time to perform other separately billable procedures was not included in the critical care time. My time did not include minutes spent treating any other patients simultaneously or on activities that did not directly contribute to the patient's treatment. The services I provided to this patient were to treat and/or prevent clinically significant deterioration that could result in: Hemorrhagic shock, I provided critical care services requiring my management, as noted below: Chart data review, documentation time, medication orders and management, vital sign assessments/reviewing monitor data, ordering and reviewing lab tests, ordering and interpreting/reviewing x-rays and diagnostic studies, care of the patient and discussion of the patient with the admitting physicians. Medical Decision Making MDM Narrative Medical decision making narrative: Patient arrived tachycardic and hypotensive. Blood was ordered to get ready. Patient placed on octreotide and Protonix drip. Will closely monitor Medical Screen Exam Complete: Yes Emergency Medical Condition: Yes Differential Diagnosis Differential Diagnosis: Esophageal varices, anemia, gastritis Lab Data Lab results reviewed: Yes I reviewed the patient's lab results. Result diagrams: 02/25/18 11:58 02/25/18 11:58 Lab Results 02/25/18 02/25/18 02/25/18 Range/Units 11:58 11:58 11:58 WBC 12.7 H (4.0-11.0) th/mm3 RBC 3.68 L (4.00-5.30) mil/mm3 Hgb 9.4 L (11.6-15.3) gm/dL Hct 30.3 L (35.0-46.0) % MCV 82.3 (80.0-100.0) fL MCH 25.6 L (27.0-34.0) pg MCHC 31.1 L (32.0-36.0) % RDW 21.1 H (11.6-17.2) % Plt Count 302 (150-450) th/mm3 MPV 8.9 (7.0-11.0) fL Neut % (Auto) 63.1 (16.0-70.0) % Lymph % (Auto) 24.6 (9.0-44.0) % [place] % (Auto) 11.3 H (0.0-8.0) % Eos % (Auto) 0.1 (0.0-4.0) % Baso % (Auto) 0.9 (0.0-2.0) % Neut # (Auto) 8.0 H (1.8-7.7) th/mm3 Lymph # (Auto) 3.1 (1.0-4.8) th/mm3 [place] # (Auto) 1.4 H (0.0-0.9) th/mm3 Eos # (Auto) 0.0 (0.0-0.4) th/mm3 Baso # (Auto) 0.1 (0.0-0.2) th/mm3 WBC Differential . Differential Comment Auto diff final PT 13.0 H (9.8-11.6) sec INR 1.3 Ratio APTT 21.1 L (24.3-30.1) sec Sodium (136-145) meq/L Potassium (3.5-5.1) meq/L Chloride (98-107) meq/L Carbon Dioxide (21.0-32.0) meq/L Anion Gap (5-15) meq/L BUN (7-18) mg/dL Creatinine (0.50-1.00) mg/dL Estimated GFR (>89) mL/min Random Glucose (74-106) mg/dL Calcium (8.5-10.1) mg/dL Total Bilirubin (0.2-1.0) mg/dL AST (15-37) U/L ALT (10-53) U/L Alkaline Phosphatase (45-117) U/L Ammonia 70 H (11-32) mcmol/L Total Protein (6.4-8.2) g/dL Albumin (3.4-5.0) g/dL Lipase (73-393) U/L Blood Type Antibody Screen MTS Gel Crossmatch 02/25/18 02/25/18 Range/Units 11:58 11:58 WBC (4.0-11.0) th/mm3 RBC (4.00-5.30) mil/mm3 Hgb (11.6-15.3) gm/dL Hct (35.0-46.0) % MCV (80.0-100.0) fL MCH (27.0-34.0) pg MCHC (32.0-36.0) % RDW (11.6-17.2) % Plt Count (150-450) th/mm3 MPV (7.0-11.0) fL Neut % (Auto) (16.0-70.0) % Lymph % (Auto) (9.0-44.0) % [place] % (Auto) (0.0-8.0) % Eos % (Auto) (0.0-4.0) % Baso % (Auto) (0.0-2.0) % Neut # (Auto) (1.8-7.7) th/mm3 Lymph # (Auto) (1.0-4.8) th/mm3 [place] # (Auto) (0.0-0.9) th/mm3 Eos # (Auto) (0.0-0.4) th/mm3 Baso # (Auto) (0.0-0.2) th/mm3 WBC Differential Differential Comment PT (9.8-11.6) sec INR Ratio APTT (24.3-30.1) sec Sodium 142 (136-145) meq/L Potassium 5.2 H (3.5-5.1) meq/L Chloride 109 H (98-107) meq/L Carbon Dioxide 24.0 (21.0-32.0) meq/L Anion Gap 9 (5-15) meq/L BUN 26 H (7-18) mg/dL Creatinine 0.82 (0.50-1.00) mg/dL Estimated GFR 74 L (>89) mL/min Random Glucose 111 H (74-106) mg/dL Calcium 8.2 L (8.5-10.1) mg/dL Total Bilirubin 2.3 H (0.2-1.0) mg/dL AST 52 H (15-37) U/L ALT 25 (10-53) U/L Alkaline Phosphatase 112 (45-117) U/L Ammonia (11-32) mcmol/L Total Protein 7.0 (6.4-8.2) g/dL Albumin 3.0 L (3.4-5.0) g/dL Lipase 37 L (73-393) U/L Blood Type O Positive Antibody Screen Negative MTS Gel Crossmatch See Detail Imaging Data Attestation: I personally reviewed and interpreted this imaging study as follows : Radiologist's impression: Abdomen/Pelvis CT 02/25/18 11:51 CONCLUSION: 1. Cirrhosis and portal hypertension. 2. Cholelithiasis. Chest X-Ray 02/25/18 11:51 CONCLUSION: Negative examination. Discharge Plan Discharge Disposition Patient Disposition: 30 Still Patient Discharge Details Diagnosis: Acute GI bleeding, Anemia Physicians Team ED Provider: Wanda Caldwell Primary Care Provider: UNKNOWN, Other Providers: Brea Lamas Discharge Interventions Interventions: Vital Signs Last Done: 02/25/18 13:31 Status ED Status: Admitted Patient
[2018-02-25 12:37] LABS: Activated Partial Thrombo Time 21.1 sec (24.3-30.1); INR 1.3 Ratio
[2018-02-25] MEDS: Octreotide Inj 500 MCG in Sodium Chlor 0.9% Inj 500 ML IV.CONT SCH ×2 (12:45→23:03)
[2018-02-25] MEDS: Pantoprazole Inj 80 MG in Sodium Chlor 0.9% Inj 100 ML IV.CONT SCH ×2 (12:46→23:03)
[2018-02-25 12:47] LABS: Alkaline Phosphatase 112 U/L (45-117)
[2018-02-25 12:55] LABS: Alanine Aminotransferase 25 U/L (10-53); Anion Gap 9 meq/L (5-15); Aspartate Aminotransferase 52 U/L (15-37); Blood Urea Nitrogen 26 mg/dL (7-18); Calcium 8.2 mg/dL (8.5-10.1); Chloride 109 meq/L (98-107); Glomerular Filtration Rate 74 mL/min (>89); Glucose,Random 111 mg/dL (74-106); Lipase 37 U/L (73-393); Sodium 142 meq/L (136-145)
[2018-02-25 12:58] LABS: Potassium 5.2 meq/L (3.5-5.1)
[2018-02-25] MEDS ORDERED: Sodium Chlor 0.9% Inj 250 ML IV.SIG SCH (13:00)
--- NOTE | 2018-02-25 13:05 | CT ---
EXAM DATE: 02/25/2018 12:55 PM EDT AGE/SEX: 52 years / Female INDICATIONS: Vomiting blood and blood from rectum. CLINICAL DATA: This is the patient's initial encounter. Patient reports that signs and symptoms have been present for 1 day and indicates a pain score of 5/10. MEDICAL/SURGICAL HISTORY: . history of GI bleed None. RADIATION DOSE: 6.64 CTDI (mGy) COMPARISON: [facility] [place] & [place]ELVIS W CONTRAST, 10/27/2017. . TECHNIQUE: Multiple contiguous axial images were obtained through the abdomen. Images were obtained using multiple row detector helical technique. Using automated exposure control and adjustment of the mA and/or kV according to patient size, radiation dose was kept as low as reasonably achievable to o btain optimal diagnostic quality images. DICOM format image data is available electronically for rev iew and comparison. FINDINGS: The liver has a nodular cirrhotic appearance. Cholelithiasis is noted. Kidneys, adrenals, spleen, martinez creas or. There is recanalization of the umbilical vein. Small caliber varices of the gastrohepatic l igament, esophageal varices and ricardo hepatis are noted. Urinary bladder is unremarkable. The patient is status post hysterectomy. There is no adenopathy or aneurysm. The osseous structures are intact. Lung bases are clear. CONCLUSION: 1. Cirrhosis and portal hypertension. 2. Cholelithiasis. Electronically signed by: Santi Loo MD 02/25/2018 1:04 PM EDT
[2018-02-25] MEDS ORDERED: Acetaminophen 325 MG Tablet PO PRN (13:38)
--- NOTE | 2018-02-25 14:52 | P.HP ---
History of Present Illness Primary Care Physician: UNKNOWN Chief Complaint: UGI bleed History of Present Illness: 52-year-old female with past medical history of alcohol dependence, cirrhosis, portal hypertension, esophageal varices with band ligation was brought to the ED by EMS for evaluation of coffee-ground emesis over the past 24 hours associated with abdominal pain, shortness of breath without any chest pain. Patient was hospitalized back in October with consultation with GI. However since her discharge, she has not followed with GI .Patient has a known history of alcohol abuse however states she has been cutting down on how much she drinks state over this past weekend she has had one drink made of vodka. In emergency department, patient H&H was 9.4/30.3 and she was started on octreotide and PPI drips. - Diagnosis (1) Acute GI bleeding (2) Anemia Inpatient Certification: I certify that the inpatient services were ordered in accordance with Medicare regulations governing the order. This includes certification that hospital inpatient services are reasonable and necessary and in the case of services not specified as inpatient-only under 42 CFR 419.22(n), that they are appropriately provided as inpatient services in accordance to with the 2-midnight benchmark under 43 CFR 412.3(e) Estimated Total Length of Stay (Days): 2 Plans for Post Hospital Care: Not yet determined Review of Systems All other systems reviewed negative except as stated in HPI PMFSH - History History Provided By: Offset Press Assistant / EMT - Medical History Medical History: Medical History (Last Reviewed 02/27/18 @ 10:00 by Pablo Ledezma MD) Chronic pain History of GI bleed - Family History Family History: Family History (Last Updated 02/25/18 @ 15:17 by Dylon Schrader MD) Other COPD (chronic obstructive pulmonary disease) - Tobacco History Second Hand Smoke Exposure: No Tobacco Use In Past 30 Days: Yes Smoking Status: Current every day smoker Tobacco Type: Cigarettes - Alcohol History How Often Do You Have a Drink Containing Alcohol: Monthly or less - Substance Use History Substance History: No History of Abuse - Travel History Recent Travel in the [place] Within the Last 8 Weeks: No Recent Travel Out of the Country Within the Last 8 Weeks: No - Immunization History Tetanus Immunization: Unsure Hx Influenza Vaccine This Season: No Medications and Allergies Active Medications: Active Medications Acetaminophen (Tylenol) 650 mg PO Q4H PRN PRN Reason: Temp > 100.4 Al Hydroxide/Mg Hydroxide (Milk Of Tavo Tran) 30 ml PO Q12H PRN PRN Reason: Mild Constipation Pantoprazole Sodium 80 mg/ (Sodium Chloride) 100 mls @ 10 mls/hr IV.CONT CONT JEFFREY Last Admin: 02/25/18 12:46 Dose: 10 mls/hr Octreotide Acetate 500 mcg/ (Sodium Chloride) 500.5 mls @ 50.05 mls/hr IV.CONT .Q10H JEFFREY Last Admin: 02/25/18 12:45 Dose: 50 mcg/hr, 50.05 mls/hr Sodium Chloride (Ns Inj) 250 mls @ 15 mls/hr IV.SIG ONCE JEFFREY Stop: 02/26/18 05:39 Last Admin: 02/25/18 14:03 Dose: 15 mls/hr Ondansetron HCl (Zofran Inj) 4 mg IV.PUSH Q6H PRN PRN Reason: NAUSEA OR VOMITING Allergies Allergy/AdvReac Type Severity Reaction Status Date / Time diclofenac AdvReac Severe headache Verified 02/26/18 04:56 Exam Vital signs: Vital Signs 02/25/18 11:52 02/25/18 13:31 02/25/18 13:33 Temperature Pulse Rate 117 H 96 H Respiratory Rate 16 22 Blood Pressure 120/58 L 95/53 L Pulse Oximetry 96 100 100 02/25/18 13:59 Temperature 99.2 F Pulse Rate 102 H Respiratory Rate 20 Blood Pressure 101/57 L Pulse Oximetry 100 Intake & Output 02/24/18 02/25/18 02/25/18 18:59 06:59 18:59 Intake Total 1000 / 1000 Balance 1000 / 1000 Weight 56.245 kg Intake: IV 1000 / 1000 NS Inj 1,000 ML @ Wide Open IV. 1000 / 1000 SIG BOLUS ONE Rx#:[id number] Intake (Blood Product) Amt 0 / 0 Rbc As-3 Leukoreduced Unit 0 / 0 [id number] Narrative: GENERAL: NAD SKIN: Warm and dry. HEAD: Atraumatic. Normocephalic. EYES: Pupils equal and round. No scleral icterus. No injection or drainage. ENT: No nasal bleeding or discharge. Mucous membranes pink and moist. NECK: Trachea midline. No JVD. CARDIOVASCULAR: Regular rate and rhythm. RESPIRATORY: No accessory muscle use. Clear to auscultation. Breath sounds equal bilaterally. GASTROINTESTINAL: Abdomen soft, non-tender, nondistended. Hepatic and splenic margins not palpable. MUSCULOSKELETAL: Extremities without clubbing, cyanosis, or edema. No obvious deformities. NEUROLOGICAL: Awake and alert. No obvious cranial nerve deficits. Motor grossly within normal limits. Five out of 5 muscle strength in the arms and legs. Normal speech. PSYCHIATRIC: Appropriate mood and affect; insight and judgment normal. Results - Labs CBC & Chem 7: 02/27/18 09:08 02/27/18 09:08 Labs: Laboratory Results - last 24 hr 02/25/18 02/25/18 02/25/18 11:58 11:58 11:58 WBC 12.7 H RBC 3.68 L Hgb 9.4 L Hct 30.3 L MCV 82.3 MCH 25.6 L MCHC 31.1 L RDW 21.1 H Plt Count 302 MPV 8.9 Neut % (Auto) 63.1 Lymph % (Auto) 24.6 [place] % (Auto) 11.3 H Eos % (Auto) 0.1 Baso % (Auto) 0.9 Neut # (Auto) 8.0 H Lymph # (Auto) 3.1 [place] # (Auto) 1.4 H Eos # (Auto) 0.0 Baso # (Auto) 0.1 WBC Differential . Differential Comment Auto diff final PT 13.0 H INR 1.3 APTT 21.1 L Sodium Potassium Chloride Carbon Dioxide Anion Gap BUN Creatinine Estimated GFR Random Glucose Calcium Total Bilirubin AST ALT Alkaline Phosphatase Ammonia 70 H Total Protein Albumin Lipase Blood Type Antibody Screen MTS Gel Crossmatch 02/25/18 02/25/18 11:58 11:58 WBC RBC Hgb Hct MCV MCH MCHC RDW Plt Count MPV Neut % (Auto) Lymph % (Auto) [place] % (Auto) Eos % (Auto) Baso % (Auto) Neut # (Auto) Lymph # (Auto) [place] # (Auto) Eos # (Auto) Baso # (Auto) WBC Differential Differential Comment PT INR APTT Sodium 142 Potassium 5.2 H Chloride 109 H Carbon Dioxide 24.0 Anion Gap 9 BUN 26 H Creatinine 0.82 Estimated GFR 74 L Random Glucose 111 H Calcium 8.2 L Total Bilirubin 2.3 H AST 52 H ALT 25 Alkaline Phosphatase 112 Ammonia Total Protein 7.0 Albumin 3.0 L Lipase 37 L Blood Type O Positive Antibody Screen Negative MTS Gel Crossmatch See Detail - Imaging Impressions Abdomen/Pelvis CT 02/25/18 11:51 CONCLUSION: 1. Cirrhosis and portal hypertension. 2. Cholelithiasis. Chest X-Ray 02/25/18 11:51 CONCLUSION: Negative examination. Caprini VTE Risk Assessment Caprini VTE Risk Assessment: Moderate/High Risk (score >= 2) VTE Pharmacological Exception Reason: Coagulopathy,INR elevated, Active bleeding Caprini Risk Assessment Model: Point Value = 1 Point Value = 2 Point Value = 3 Point Value = 5 Age 41-60 Minor surgery BMI > 25 kg/m2 Swollen legs Varicose veins or History of unexplained or recurrent spontaneous Oral contraceptives or hormone replacement Sepsis (< 1 month) Serious lung disease, including pneumonia (< 1 month) Abnormal pulmonary function Acute myocardial infarction Congestive heart failure (< 1 month) History of inflammatory bowel disease Medical patient at bed rest Age 61-74 Arthroscopic surgery Major open surgery (> 45 min) Laparoscopic surgery (> 45 min) Malignancy Confined to bed (> 72 hours) Immobilizing plaster cast Central venous access Age >= 75 History of VTE Family history of VTE Factor V Leiden Prothrombin [id number] Lupus anticoagulant Anticardiolipin antibodies Elevated serum homocysteine Heparin-induced thrombocytopenia Other congenital or acquired thrombophilia Stroke (< 1 month) Elective arthroplasty Hip, pelvis, or leg fracture Acute spinal cord injury (< 1 month) Prophylaxis Regimen: Total Risk Factor Score Risk Level Prophylaxis Regimen 0-1 Low Early ambulation 2 Moderate Order ONE of the following: *Sequential Compression Device (SCD) *Heparin 5000 units SQ BID 3-4 Higher Order ONE of the following medications: *Heparin 5000 units SQ TID *Enoxaparin/Lovenox 40 mg SQ daily (WT < 150 kg, CrCl > 30 mL/min) *Enoxaparin/Lovenox 30 mg SQ daily (WT < 150 kg, CrCl > 10-29 mL/min) *Enoxaparin/Lovenox 30 mg SQ BID (WT < 150 kg, CrCl > 30 mL/min) AND/OR *Sequential Compression Device (SCD) 5 or more Highest Order ONE of the following medications: *Heparin 5000 units SQ TID (Preferred with Epidurals) *Enoxaparin/Lovenox 40 mg SQ daily (WT < 150 kg, CrCl > 30 mL/min) *Enoxaparin/Lovenox 30 mg SQ daily (WT < 150 kg, CrCl > 10-29 mL/min) *Enoxaparin/Lovenox 30 mg SQ BID (WT < 150 kg, CrCl > 30 mL/min) AND *Sequential Compression Device (SCD) Assessment and Plan - Assessment (1) Acute GI bleeding Code(s): K92.2 - Gastrointestinal hemorrhage, unspecified Status: Acute (2) Anemia Code(s): D64.9 - Anemia, unspecified Status: Acute - Plan 52-year-old female with Upper GI bleeding Acute symptomatic anemia History of cirrhosis and portal hypertension History of esophageal varices CT abdomen noted and reviewed by me with finding of cirrhosis and portal hypertension Transfuse 2 units packed red blood cell and monitor serial H&H Continue with octreotide and PPI drips GI consultation pending for evaluation for EGD Secondary to elevated WBC, will start empiric Rocephin 1 g IV daily for prophylaxis for SBP; monitor culture Secondary to soft BP, will hold on Starting propranolol Lipase within normal limits Alcohol dependence Alcohol counseling cessation provided Monitor for alcohol withdrawal by [facility] protocol Start rally pack Check ammonia level, lactic acid Coagulopathy Secondary to liver disease Continue to monitor and consider vitamin K transfusion for abnormally elevated INR Tobacco abuse Tobacco counseling cessation provided Albuterol as needed DVT prophylaxis: Chemical anti-prophylaxis is contraindicated; bilateral SCDs (2) Anemia Qualifiers: Anemia type: unspecified type Qualified Code(s): D64.9 - Anemia, unspecified
[2018-02-25] MEDS ORDERED: Haloperidol Inj 5 MG/ML Ampul IV.PUSH PRN (16:00)
[2018-02-26] MEDS: LORazepam 1 MG Tablet PO PRN ×2 (01:07→20:18)
[2018-02-26] MEDS: Octreotide Inj 500 MCG in Sodium Chlor 0.9% Inj 500 ML IV.CONT SCH ×2 (08:22→20:56)
[2018-02-26 10:22] LABS: Baso # (Auto) 0.1 th/mm3 (0.0-0.2); Baso % (Auto) 1.4 % (0.0-2.0); Eos # (Auto) 0.2 th/mm3 (0.0-0.4); Eos % (Auto) 3.3 % (0.0-4.0); Lymph # (Auto) 1.4 th/mm3 (1.0-4.8); Lymph % (Auto) 27.4 % (9.0-44.0); Mean Corpuscular HGB Conc 33.5 % (32.0-36.0); Mean Corpuscular Volume 80.7 fL (80.0-100.0); Mean Platelet Volume 8.4 fL (7.0-11.0); Mono # (Auto) 0.5 th/mm3 (0.0-0.9); Mono % (Auto) 9.5 % (0.0-8.0); Neut # (Auto) 2.9 th/mm3 (1.8-7.7); Neut % (Auto) 58.4 % (16.0-70.0); Red Blood Count 3.35 mil/mm3 (4.00-5.30); Red Cell Distribution Width 19.7 % (11.6-17.2); White Blood Count 4.9 th/mm3 (4.0-11.0)
--- NOTE | 2018-02-26 10:28 | P.CONGI ---
History of Present Illness Consult date: 02/26/18 Consult reason: Coffee-ground emesis, melena stools and abdominal pain Chief complaint: GI bleed History of Present Illness: This is a 52-year-old female who entered the hospital on 02/25/2018 with coffee- ground emesis with some color changes to raspberry over the past 36 hours. Patient also notes generalized abdominal pain bloating and cramping for the same length of time. Patient states immediately had thick dark melena stools 2- 3 times over the past 24 hours, pain scale 10 out of 10 uncontrolled. Patient also notes some shortness of breath, no bright red rectal bleeding noted. According to the record and patient she continues to drink some alcohol but has cut down tremendously and states one drink in the past 3 days. Patient denies any history of constipation but does note last EGD/colonoscopy in August 2017. Patient's currently being managed on an octreotide drip and a Protonix drip. Gastroenterology was consulted to assist with her current symptoms and assist with providing a plan of care. Current labs show hemoglobin 9.4, PT/INR 1.3, bilirubin 2.3, elevated AST 52 which is probably secondary to her alcohol and normal ALT 25. Ammonia level initially was 70 now is 87 this a.m., lipase level 37. Patient is attempting to answer simple questions but does have some mild slurred speech but states she is still having generalized abdominal pain. Patient does note she has had esophageal banding and varices in the past. No known family history of colon cancer. According to the record patient never followed up with GI on an outpatient basis but does remember [facility] CT scan performed on 02/25/2018 shows cholelithiasis, cirrhosis, and portal hypertension. 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 - Medical History Medical History: Medical History (Last Reviewed 02/25/18 @ 12:31 by Wanda Caldwell MD) Chronic pain History of GI bleed - Family History Family History: Family History (Last Updated 02/25/18 @ 15:17 by Dylon Schrader MD) Other COPD (chronic obstructive pulmonary disease) - Tobacco History Second Hand Smoke Exposure: No Tobacco Use In Past 30 Days: Yes Smoking Status: Current every day smoker Tobacco Type: Cigarettes - Alcohol History How Often Do You Have a Drink Containing Alcohol: Monthly or less - Substance Use History Substance History: No History of Abuse - Travel History Recent Travel in the [place] Within the Last 8 Weeks: No Recent Travel Out of the Country Within the Last 8 Weeks: No - Immunization History Tetanus Immunization: Unsure Hx Influenza Vaccine This Season: No <Itzel Valdez - Last Filed: 02/26/18 10:28> - Medical History Medical History: Medical History (Last Reviewed 02/25/18 @ 12:31 by Wanda Caldwell MD) Chronic pain History of GI bleed - Family History Family History: Family History (Last Updated 02/25/18 @ 15:17 by Dylon Schrader MD) Other COPD (chronic obstructive pulmonary disease) <Brea Thompson - Last Filed: 02/26/18 12:37> Medications and Allergies Active Medications: Active Medications Acetaminophen (Tylenol) 650 mg PO Q4H PRN PRN Reason: Temp > 100.4 Al Hydroxide/Mg Hydroxide (Milk Of Magnesia Liq) 30 ml PO Q12H PRN PRN Reason: Mild Constipation Flumazenil (Romazecon Inj) 0.2 mg IV.PUSH Q1M PRN PRN Reason: OVERSEDATION Haloperidol Lactate (Haldol Inj) 1 mg IV.PUSH Q15M PRN PRN Reason: for severe agitation Pantoprazole Sodium 80 mg/ (Sodium Chloride) 100 mls @ 10 mls/hr IV.CONT CONT [facility] Last Admin: 02/25/18 23:03 Dose: 10 mls/hr Octreotide Acetate 500 mcg/ (Sodium Chloride) 500.5 mls @ 50.05 mls/hr IV.CONT .Q10H [facility] Last Admin: 02/26/18 08:22 Dose: 50 mcg/hr, 50.05 mls/hr Ceftriaxone Sodium 1,000 mg/ (Sodium Chloride) 100 mls @ 200 mls/hr IV.SIG Q24H [facility] Last Infusion: 02/25/18 17:46 Dose: Infused Lorazepam (Ativan) 1 mg PO Q4H PRN PRN Reason: for CIWA 8-10 Last Admin: 02/26/18 01:07 Dose: 1 mg Lorazepam (Ativan) 2 mg PO Q2H PRN PRN Reason: for CIWA 11-14 Lorazepam (Ativan Inj) 2 mg IV.PUSH Q2H PRN PRN Reason: for CIWA 11-14 Last Admin: 02/26/18 08:22 Dose: 2 mg Lorazepam (Ativan Inj) 2 mg IV.PUSH Q1H PRN PRN Reason: for CIWA 15-20 Lorazepam (Ativan Inj) 2 mg IV.PUSH Q15M PRN PRN Reason: for CIWA > 20 Lorazepam (Ativan Inj) 1 mg IV.PUSH Q4H PRN PRN Reason: for CIWA 8-10 Last Admin: 02/25/18 20:24 Dose: 1 mg Ondansetron HCl (Zofran Inj) 4 mg IV.PUSH Q6H PRN PRN Reason: NAUSEA OR VOMITING Thiamine HCl (Vitamin B1) 100 mg PO BID [facility] Last Admin: 02/26/18 08:23 Dose: 100 mg <Itzel Valdez M - Last Filed: 02/26/18 10:28> Active Medications: Active Medications Acetaminophen (Tylenol) 650 mg PO Q4H PRN PRN Reason: Temp > 100.4 Al Hydroxide/Mg Hydroxide (Milk Of Magnesia Liq) 30 ml PO Q12H PRN PRN Reason: Mild Constipation Flumazenil (Romazecon Inj) 0.2 mg IV.PUSH Q1M PRN PRN Reason: OVERSEDATION Haloperidol Lactate (Haldol Inj) 1 mg IV.PUSH Q15M PRN PRN Reason: for severe agitation Pantoprazole Sodium 80 mg/ (Sodium Chloride) 100 mls @ 10 mls/hr IV.CONT CONT [facility] Last Admin: 02/25/18 23:03 Dose: 10 mls/hr Octreotide Acetate 500 mcg/ (Sodium Chloride) 500.5 mls @ 50.05 mls/hr IV.CONT .Q10H [facility] Last Admin: 02/26/18 08:22 Dose: 50 mcg/hr, 50.05 mls/hr Ceftriaxone Sodium 1,000 mg/ (Sodium Chloride) 100 mls @ 200 mls/hr IV.SIG Q24H [facility] Last Infusion: 02/25/18 17:46 Dose: Infused Lactated Ringer's (Lr 1000 Ml Inj) 1,000 mls @ 30 mls/hr IV.SIG .Q24H [facility] Stop: 02/27/18 11:14 Sodium Chloride (Ns Inj) 500 mls @ 30 mls/hr IV.SIG .Q10H [facility] Lorazepam (Ativan) 1 mg PO Q4H PRN PRN Reason: for CIWA 8-10 Last Admin: 02/26/18 01:07 Dose: 1 mg Lorazepam (Ativan) 2 mg PO Q2H PRN PRN Reason: for CIWA 11-14 Lorazepam (Ativan Inj) 2 mg IV.PUSH Q2H PRN PRN Reason: for CIWA 11-14 Last Admin: 02/26/18 08:22 Dose: 2 mg Lorazepam (Ativan Inj) 2 mg IV.PUSH Q1H PRN PRN Reason: for CIWA 15-20 Lorazepam (Ativan Inj) 2 mg IV.PUSH Q15M PRN PRN Reason: for CIWA > 20 Lorazepam (Ativan Inj) 1 mg IV.PUSH Q4H PRN PRN Reason: for CIWA 8-10 Last Admin: 02/25/18 20:24 Dose: 1 mg Morphine Sulfate (Morphine Inj) 4 mg IV.PUSH Q4H PRN PRN Reason: Pain 7 to 10 Morphine Sulfate (Morphine Inj) 2 mg IV.PUSH Q4H PRN PRN Reason: Pain 3 to 6 Ondansetron HCl (Zofran Inj) 4 mg IV.PUSH Q6H PRN PRN Reason: NAUSEA OR VOMITING Thiamine HCl (Vitamin B1) 100 mg PO BID [facility] Last Admin: 02/26/18 08:23 Dose: 100 mg <Brea Thompson A - Last Filed: 02/26/18 12:37> Allergies Allergy/AdvReac Type Severity Reaction Status Date / Time diclofenac AdvReac Severe headache Verified 02/26/18 04:56 Exam Vital signs: Vital Signs 02/25/18 11:52 02/25/18 13:31 02/25/18 13:33 Temperature Pulse Rate 117 H 96 H Respiratory Rate 16 22 Blood Pressure 120/58 L 95/53 L Pulse Oximetry 96 100 100 02/25/18 13:59 02/25/18 16:00 02/25/18 16:30 Temperature 99.2 F 99.5 F 99.0 F Pulse Rate 102 H 95 H 97 H Respiratory Rate 20 18 16 Blood Pressure 101/57 L 106/55 L 112/58 L Pulse Oximetry 100 98 97 02/25/18 16:46 02/25/18 20:00 02/26/18 00:00 Temperature 97.7 F 98.4 F 97.8 F Pulse Rate 95 H 83 82 Respiratory Rate 16 22 20 Blood Pressure 115/68 117/66 104/65 Pulse Oximetry 99 100 97 02/26/18 04:00 02/26/18 08:00 Temperature 97.9 F 98.6 F Pulse Rate 78 83 Respiratory Rate 18 16 Blood Pressure 98/62 L 109/63 Pulse Oximetry 97 98 Intake & Output 02/25/18 02/26/18 02/26/18 18:59 06:59 18:59 Intake Total 1500 / 1500 980 / 980 500.5 / 500.5 Output Total 2 / 2 Balance 1500 / 1500 978 / 978 500.5 / 500.5 Weight 56.245 kg 56.2 kg Intake: IV 1100 / 1100 100 / 100 500.5 / 500.5 SandoSTATIN Inj 500 MCG In NS 0 / 0 500.5 / 500.5 Inj 500 ML @ 50 MCG/HR 50.05 mls/hr IV.CONT .Q10H [facility] Rx#: [id number] Protonix Inj 80 MG In NS Inj 100 / 100 100 ML @ 10 mls/hr IV.CONT CONT [facility] Rx#:[id number] NS Inj 1,000 ML @ Wide Open IV. 1000 / 1000 SIG BOLUS ONE Rx#:[id number] Rocephin Inj 1,000 MG In NS Inj 100 / 100 100 ML @ 200 mls/hr IV.SIG Q24H [facility] Rx#:[id number] Oral 480 / 480 Intake (Blood Product) Amt 400 / 400 400 / 400 Rbc As-3 Leukoreduced Unit 0 / 0 400 / 400 [id number] Rbc As-3 Leukoreduced Unit 400 / 400 [id number] Output: Urine/Stool Mix 2 / 2 Other: # Voids 2 - Constitutional mild distress, thin - Routine HEENT Exam Head: Present: normocephalic ENT: Present: mucous membranes dry - Routine Neck Exam Present: supple - Routine Respiratory Exam Present: accessory muscle use (Even, unlabored) - Routine Cardiovascular Exam Present: S1, S2 - Routine Abdominal Exam Present: distended (Mild, round, soft bowel sounds, generalized abdominal pain at rest and to light palpation) - Routine Skin Exam Present: dry, pallor <Itzel Valdez - Last Filed: 02/26/18 10:28> Vital signs: Vital Signs 02/25/18 13:31 02/25/18 13:33 02/25/18 13:59 Temperature 99.2 F Pulse Rate 96 H 102 H Respiratory Rate 22 20 Blood Pressure 95/53 L 101/57 L Pulse Oximetry 100 100 100 02/25/18 16:00 02/25/18 16:30 02/25/18 16:46 Temperature 99.5 F 99.0 F 97.7 F Pulse Rate 95 H 97 H 95 H Respiratory Rate 18 16 16 Blood Pressure 106/55 L 112/58 L 115/68 Pulse Oximetry 98 97 99 02/25/18 20:00 02/26/18 00:00 02/26/18 04:00 Temperature 98.4 F 97.8 F 97.9 F Pulse Rate 83 82 78 Respiratory Rate 22 20 18 Blood Pressure 117/66 104/65 98/62 L Pulse Oximetry 100 97 97 02/26/18 08:00 02/26/18 10:11 Temperature 98.6 F Pulse Rate 83 Respiratory Rate 16 Blood Pressure 109/63 Pulse Oximetry 98 97 Intake & Output 02/25/18 02/26/18 02/26/18 18:59 06:59 18:59 Intake Total 1500 / 1500 980 / 980 500.5 / 500.5 Output Total 2 / 2 Balance 1500 / 1500 978 / 978 500.5 / 500.5 Weight 56.245 kg 56.2 kg Intake: IV 1100 / 1100 100 / 100 500.5 / 500.5 SandoSTATIN Inj 500 MCG In NS 0 / 0 500.5 / 500.5 Inj 500 ML @ 50 MCG/HR 50.05 mls/hr IV.CONT .Q10H [facility] Rx#: [id number] Protonix Inj 80 MG In NS Inj 100 / 100 100 ML @ 10 mls/hr IV.CONT CONT [facility] Rx#:[id number] NS Inj 1,000 ML @ Wide Open IV. 1000 / 1000 SIG BOLUS ONE Rx#:[id number] Rocephin Inj 1,000 MG In NS Inj 100 / 100 100 ML @ 200 mls/hr IV.SIG Q24H [facility] Rx#:[id number] Oral 480 / 480 Intake (Blood Product) Amt 400 / 400 400 / 400 Rbc As-3 Leukoreduced Unit 0 / 0 400 / 400 [id number] Rbc As-3 Leukoreduced Unit 400 / 400 [id number] Output: Urine/Stool Mix 2 / 2 Other: # Voids 2 <Brea Thompson A - Last Filed: 02/26/18 12:37> Results - Labs CBC & Chem 7: 02/25/18 11:58 02/25/18 11:58 Labs: Laboratory Results - last 24 hr 02/25/18 02/25/18 02/25/18 11:58 11:58 11:58 WBC 12.7 H RBC 3.68 L Hgb 9.4 L Hct 30.3 L MCV 82.3 MCH 25.6 L MCHC 31.1 L RDW 21.1 H Plt Count 302 MPV 8.9 Neut % (Auto) 63.1 Lymph % (Auto) 24.6 Lynn % (Auto) 11.3 H Eos % (Auto) 0.1 Baso % (Auto) 0.9 Neut # (Auto) 8.0 H Lymph # (Auto) 3.1 Lynn # (Auto) 1.4 H Eos # (Auto) 0.0 Baso # (Auto) 0.1 WBC Differential . Differential Comment Auto diff final PT 13.0 H INR 1.3 APTT 21.1 L Sodium Potassium Chloride Carbon Dioxide Anion Gap BUN Creatinine Estimated GFR Random Glucose Lactic Acid Calcium Total Bilirubin AST ALT Alkaline Phosphatase Ammonia 70 H Total Protein Albumin Lipase Blood Type Antibody Screen MTS Gel Crossmatch 02/25/18 02/25/18 02/25/18 11:58 11:58 12:29 WBC RBC Hgb Hct MCV MCH MCHC RDW Plt Count MPV Neut % (Auto) Lymph % (Auto) Lynn % (Auto) Eos % (Auto) Baso % (Auto) Neut # (Auto) Lymph # (Auto) Lynn # (Auto) Eos # (Auto) Baso # (Auto) WBC Differential Differential Comment PT INR APTT Sodium 142 Potassium 5.2 H Chloride 109 H Carbon Dioxide 24.0 Anion Gap 9 BUN 26 H Creatinine 0.82 Estimated GFR 74 L Random Glucose 111 H Lactic Acid Calcium 8.2 L Total Bilirubin 2.3 H AST 52 H ALT 25 Alkaline Phosphatase 112 Ammonia 87 H Total Protein 7.0 Albumin 3.0 L Lipase 37 L Blood Type O Positive Antibody Screen Negative MTS Gel Crossmatch See Detail 02/25/18 21:10 WBC RBC Hgb Hct MCV MCH MCHC RDW Plt Count MPV Neut % (Auto) Lymph % (Auto) Lynn % (Auto) Eos % (Auto) Baso % (Auto) Neut # (Auto) Lymph # (Auto) Lynn # (Auto) Eos # (Auto) Baso # (Auto) WBC Differential Differential Comment PT INR APTT Sodium Potassium Chloride Carbon Dioxide Anion Gap BUN Creatinine Estimated GFR Random Glucose Lactic Acid 3.7 H Calcium Total Bilirubin AST ALT Alkaline Phosphatase Ammonia Total Protein Albumin Lipase Blood Type Antibody Screen MTS Gel Crossmatch - Imaging Impressions Abdomen/Pelvis CT 02/25/18 11:51 CONCLUSION: 1. Cirrhosis and portal hypertension. 2. Cholelithiasis. Chest X-Ray 02/25/18 11:51 CONCLUSION: Negative examination. <Itzel Valdez - Last Filed: 02/26/18 10:28> - Labs CBC & Chem 7: 02/26/18 09:48 02/26/18 09:48 Labs: Laboratory Results - last 24 hr 02/25/18 02/25/18 02/25/18 11:58 11:58 11:58 WBC RBC Hgb Hct MCV MCH MCHC RDW Plt Count MPV Neut % (Auto) Lymph % (Auto) Lynn % (Auto) Eos % (Auto) Baso % (Auto) Neut # (Auto) Lymph # (Auto) Lynn # (Auto) Eos # (Auto) Baso # (Auto) WBC Differential Diff Scan Differential Comment Platelet Estimate Platelet Morphology PT 13.0 H INR 1.3 APTT 21.1 L Sodium 142 Potassium 5.2 H Chloride 109 H Carbon Dioxide 24.0 Anion Gap 9 BUN 26 H Creatinine 0.82 Estimated GFR 74 L Random Glucose 111 H Lactic Acid Calcium 8.2 L Prot Corrected Calcium Total Bilirubin 2.3 H AST 52 H ALT 25 Alkaline Phosphatase 112 Ammonia 70 H Total Protein 7.0 Albumin 3.0 L Lipase 37 L Blood Type Antibody Screen MTS Gel Crossmatch 02/25/18 02/25/18 02/25/18 11:58 12:29 21:10 WBC RBC Hgb Hct MCV MCH MCHC RDW Plt Count MPV Neut % (Auto) Lymph % (Auto) Lynn % (Auto) Eos % (Auto) Baso % (Auto) Neut # (Auto) Lymph # (Auto) Lynn # (Auto) Eos # (Auto) Baso # (Auto) WBC Differential Diff Scan Differential Comment Platelet Estimate Platelet Morphology PT INR APTT Sodium Potassium Chloride Carbon Dioxide Anion Gap BUN Creatinine Estimated GFR Random Glucose Lactic Acid 3.7 H Calcium Prot Corrected Calcium Total Bilirubin AST ALT Alkaline Phosphatase Ammonia 87 H Total Protein Albumin Lipase Blood Type O Positive Antibody Screen Negative MTS Gel Crossmatch See Detail 02/26/18 02/26/18 09:48 09:48 WBC 4.9 D RBC 3.35 L Hgb 9.0 L Hct 27.0 L MCV 80.7 MCH 27.0 MCHC 33.5 RDW 19.7 H Plt Count 185 D MPV 8.4 Neut % (Auto) 58.4 Lymph % (Auto) 27.4 Lynn % (Auto) 9.5 H Eos % (Auto) 3.3 Baso % (Auto) 1.4 Neut # (Auto) 2.9 Lymph # (Auto) 1.4 Lynn # (Auto) 0.5 Eos # (Auto) 0.2 Baso # (Auto) 0.1 WBC Differential . Diff Scan Auto diff confirmed Differential Comment Auto diff final Platelet Estimate Normal Platelet Morphology Enlarged H PT INR APTT Sodium 145 Potassium 3.7 D Chloride 111 H Carbon Dioxide 24.8 Anion Gap 9 BUN 11 Creatinine 0.65 Estimated GFR Greater than 89 Random Glucose 180 H Lactic Acid Calcium 7.2 L* D Prot Corrected Calcium 8.1 L Total Bilirubin 1.5 H AST 23 ALT 14 Alkaline Phosphatase 87 Ammonia Total Protein 5.4 L D Albumin 2.4 L D Lipase Blood Type Antibody Screen MTS Gel Crossmatch - Imaging Impressions Abdomen/Pelvis CT 02/25/18 11:51 CONCLUSION: 1. Cirrhosis and portal hypertension. 2. Cholelithiasis. <Brea Thompson - Last Filed: 02/26/18 12:37> Assessment and Plan (1) Abdominal pain Status: Acute Code(s): R10.9 - Unspecified abdominal pain (2) Portal hypertension Status: Acute Code(s): K76.6 - Portal hypertension (3) Acute GI bleeding Status: Acute Code(s): K92.2 - Gastrointestinal hemorrhage, unspecified (4) Anemia Status: Acute Code(s): D64.9 - Anemia, unspecified (5) History of esophageal varices with bleeding Status: Acute Code(s): Z87.19 - Personal history of other diseases of the digestive system (6) History of esophageal varices with bleeding Status: Acute Code(s): Z87.19 - Personal history of other diseases of the digestive system (7) Alcoholic cirrhosis of liver Status: Acute Code(s): K70.30 - Alcoholic cirrhosis of liver without ascites (8) Alcoholic cirrhosis of liver Status: Acute Code(s): K70.30 - Alcoholic cirrhosis of liver without ascites - Plan 52-year-old female entered the hospital on 02/25/2018 with coffee-ground emesis as well as some raspberry colored emesis and melena stools 2-3 large dark uncontrolled, as well as generalized abdominal pain for the past 36 hours. Currently being managed with octreotide drip and Protonix drip. Melena stools, patient has a history of alcoholic cirrhosis, portal hypertension and history of esophageal varices. This could be related to GI bleeding Abdominal pain uncontrolled, probably related to GI bleed. Patient also has symptoms of uncontrolled belching and bloating CT scan shows cholelithiasis, portal hypertension, and cirrhosis. Patient was here recently in August status post EGD colonoscopy but never had any GI follow- up. Patient states esophageal banding in the past within the past year approximately. Terms of constipation. Hyperammonemia, probable secondary to her liver cirrhosis, currently has some slurred speech but is able to carry on simple conversation about her symptoms. Current labs show hemoglobin 9.4, WBC count 12.7 leukocytosis unspecified, PT/ INR 1.3, Liver cirrhosis with bilirubin 2.3, elevated AST 52, and ALT 25. Patient continues to drink alcohol but states a decreased amount with only one drink in the past 3 days. Plan N.p.o. now Consent for EGD with possible esophageal banding Monitor labs with special attention hemoglobin and transfuse as needed Continue octreotide and Protonix drip for now Further recommendations to follow after EGD Ativan for any obvious withdrawal signs Patient was seen per myself and Dr. Thompson, note was written on his behalf <Itzel Valdez - Last Filed: 02/26/18 10:28> (1) Abdominal pain Status: Acute Code(s): R10.9 - Unspecified abdominal pain (2) Portal hypertension Status: Acute Code(s): K76.6 - Portal hypertension (3) Acute GI bleeding Status: Acute Code(s): K92.2 - Gastrointestinal hemorrhage, unspecified (4) Anemia Status: Acute Code(s): D64.9 - Anemia, unspecified (5) History of esophageal varices with bleeding Status: Acute Code(s): Z87.19 - Personal history of other diseases of the digestive system (6) History of esophageal varices with bleeding Status: Acute Code(s): Z87.19 - Personal history of other diseases of the digestive system (7) Alcoholic cirrhosis of liver Status: Acute Code(s): K70.30 - Alcoholic cirrhosis of liver without ascites (8) Alcoholic cirrhosis of liver Status: Acute Code(s): K70.30 - Alcoholic cirrhosis of liver without ascites - Attending Attestation Seen and examined, plan as above. EGD with possible banding today, risk, benefits and possible complications discussed with the patient, consent obtained. Will follow up with you Thank you for the consult. <Brea Thompson A - Last Filed: 02/26/18 12:37> <Itzel Valdez M - Last Filed: 02/26/18 10:28> (4) Anemia Qualifiers: Anemia type: unspecified type Qualified Code(s): D64.9 - Anemia, unspecified <Brea Thompson - Last Filed: 02/26/18 12:37> (4) Anemia Qualifiers: Anemia type: unspecified type Qualified Code(s): D64.9 - Anemia, unspecified
[2018-02-26 10:52] LABS: Alanine Aminotransferase 14 U/L (10-53); Albumin 2.4 g/dL (3.4-5.0); Alkaline Phosphatase 87 U/L (45-117); Anion Gap 9 meq/L (5-15); Aspartate Aminotransferase 23 U/L (15-37); Blood Urea Nitrogen 11 mg/dL (7-18); Calcium 7.2 mg/dL (8.5-10.1); Carbon Dioxide 24.8 meq/L (21.0-32.0); Chloride 111 meq/L (98-107); Glomerular Filtration Rate Greater Than 89 mL/min (>89); Glucose,Random 180 mg/dL (74-106); Potassium 3.7 meq/L (3.5-5.1); Sodium 145 meq/L (136-145); Total Protein 5.4 g/dL (6.4-8.2)
[2018-02-26 11:03] LABS: Platelet Count 185 th/mm3 (150-450)
[2018-02-26 11:04] LABS: Platelet Estimate Normal (Normal)
[2018-02-26] MEDS ORDERED: Chlorhexidine Gluconate 2% 1 Pack (2 Cloths) TOPICAL ONE (11:05)
[2018-02-26] MEDS ORDERED: Metoprolol Tartrate 25 MG Tablet PO ONE (11:05)
--- NOTE | 2018-02-26 11:15 | P.PNIM ---
Subjective Interval history: Primary complaint is pain. Patient says she takes high-dose narcotics for chronic pain. Currently she has been n.p.o. Potassium level is elevated today , this is likely related to GI bleed. No new complaints. Physical Exam Vital signs: Vital Signs 02/25/18 11:52 02/25/18 13:31 02/25/18 13:33 Temperature Pulse Rate 117 H 96 H Respiratory Rate 16 22 Blood Pressure 120/58 L 95/53 L Pulse Oximetry 96 100 100 02/25/18 13:59 02/25/18 16:00 02/25/18 16:30 Temperature 99.2 F 99.5 F 99.0 F Pulse Rate 102 H 95 H 97 H Respiratory Rate 20 18 16 Blood Pressure 101/57 L 106/55 L 112/58 L Pulse Oximetry 100 98 97 02/25/18 16:46 02/25/18 20:00 02/26/18 00:00 Temperature 97.7 F 98.4 F 97.8 F Pulse Rate 95 H 83 82 Respiratory Rate 16 22 20 Blood Pressure 115/68 117/66 104/65 Pulse Oximetry 99 100 97 02/26/18 04:00 02/26/18 08:00 02/26/18 10:11 Temperature 97.9 F 98.6 F Pulse Rate 78 83 Respiratory Rate 18 16 Blood Pressure 98/62 L 109/63 Pulse Oximetry 97 98 97 Intake & Output 02/25/18 02/26/18 02/26/18 18:59 06:59 18:59 Intake Total 1500 / 1500 980 / 980 500.5 / 500.5 Output Total 2 / 2 Balance 1500 / 1500 978 / 978 500.5 / 500.5 Weight 56.245 kg 56.2 kg Intake: IV 1100 / 1100 100 / 100 500.5 / 500.5 SandoSTATIN Inj 500 MCG In NS 0 / 0 500.5 / 500.5 Inj 500 ML @ 50 MCG/HR 50.05 mls/hr IV.CONT .Q10H [facility] Rx#: [id number] Protonix Inj 80 MG In NS Inj 100 / 100 100 ML @ 10 mls/hr IV.CONT CONT [facility] Rx#:[id number] NS Inj 1,000 ML @ Wide Open IV. 1000 / 1000 SIG BOLUS ONE Rx#:[id number] Rocephin Inj 1,000 MG In NS Inj 100 / 100 100 ML @ 200 mls/hr IV.SIG Q24H [facility] Rx#:[id number] Oral 480 / 480 Intake (Blood Product) Amt 400 / 400 400 / 400 Rbc As-3 Leukoreduced Unit 0 / 0 400 / 400 [id number] Rbc As-3 Leukoreduced Unit 400 / 400 [id number] Output: Urine/Stool Mix 2 / 2 Other: # Voids 2 Narrative: GENERAL: NAD, A&Ox3 HEAD: Normocephalic. NECK: Supple, trachea midline. No lymphadenopathy. EYES: No scleral icterus. No injection or drainage. CARDIOVASCULAR: Regular rate and rhythm without murmurs, gallops, or rubs. RESPIRATORY: Breath sounds equal bilaterally. No accessory muscle use. GASTROINTESTINAL: Abdomen soft, non-tender, nondistended. MUSCULOSKELETAL: No cyanosis, or edema. SKIN: Warm and dry. NEURO: No focal neurological deficits. Results - Labs CBC & Chem 7: 02/26/18 09:48 02/26/18 09:48 Laboratory Results - last 24 hr 02/25/18 02/25/18 02/25/18 11:58 11:58 11:58 WBC 12.7 H RBC 3.68 L Hgb 9.4 L Hct 30.3 L MCV 82.3 MCH 25.6 L MCHC 31.1 L RDW 21.1 H Plt Count 302 MPV 8.9 Neut % (Auto) 63.1 Lymph % (Auto) 24.6 [place] % (Auto) 11.3 H Eos % (Auto) 0.1 Baso % (Auto) 0.9 Neut # (Auto) 8.0 H Lymph # (Auto) 3.1 [place] # (Auto) 1.4 H Eos # (Auto) 0.0 Baso # (Auto) 0.1 WBC Differential . Diff Scan Differential Comment Auto diff final Platelet Estimate Platelet Morphology PT 13.0 H INR 1.3 APTT 21.1 L Sodium Potassium Chloride Carbon Dioxide Anion Gap BUN Creatinine Estimated GFR Random Glucose Lactic Acid Calcium Prot Corrected Calcium Total Bilirubin AST ALT Alkaline Phosphatase Ammonia 70 H Total Protein Albumin Lipase Blood Type Antibody Screen MTS Gel Crossmatch 02/25/18 02/25/18 02/25/18 11:58 11:58 12:29 WBC RBC Hgb Hct MCV MCH MCHC RDW Plt Count MPV Neut % (Auto) Lymph % (Auto) [place] % (Auto) Eos % (Auto) Baso % (Auto) Neut # (Auto) Lymph # (Auto) [place] # (Auto) Eos # (Auto) Baso # (Auto) WBC Differential Diff Scan Differential Comment Platelet Estimate Platelet Morphology PT INR APTT Sodium 142 Potassium 5.2 H Chloride 109 H Carbon Dioxide 24.0 Anion Gap 9 BUN 26 H Creatinine 0.82 Estimated GFR 74 L Random Glucose 111 H Lactic Acid Calcium 8.2 L Prot Corrected Calcium Total Bilirubin 2.3 H AST 52 H ALT 25 Alkaline Phosphatase 112 Ammonia 87 H Total Protein 7.0 Albumin 3.0 L Lipase 37 L Blood Type O Positive Antibody Screen Negative MTS Gel Crossmatch See Detail 02/25/18 02/26/18 02/26/18 21:10 09:48 09:48 WBC 4.9 D RBC 3.35 L Hgb 9.0 L Hct 27.0 L MCV 80.7 MCH 27.0 MCHC 33.5 RDW 19.7 H Plt Count 185 D MPV 8.4 Neut % (Auto) 58.4 Lymph % (Auto) 27.4 [place] % (Auto) 9.5 H Eos % (Auto) 3.3 Baso % (Auto) 1.4 Neut # (Auto) 2.9 Lymph # (Auto) 1.4 [place] # (Auto) 0.5 Eos # (Auto) 0.2 Baso # (Auto) 0.1 WBC Differential . Diff Scan Auto diff confirmed Differential Comment Auto diff final Platelet Estimate Normal Platelet Morphology Enlarged H PT INR APTT Sodium 145 Potassium 3.7 D Chloride 111 H Carbon Dioxide 24.8 Anion Gap 9 BUN 11 Creatinine 0.65 Estimated GFR Greater than 89 Random Glucose 180 H Lactic Acid 3.7 H Calcium 7.2 L* D Prot Corrected Calcium 8.1 L Total Bilirubin 1.5 H AST 23 ALT 14 Alkaline Phosphatase 87 Ammonia Total Protein 5.4 L D Albumin 2.4 L D Lipase Blood Type Antibody Screen MTS Gel Crossmatch Microbiology 02/25/18 21:05 Blood - Peripheral Aerobic Blood Culture - Preliminary No growth in 1 day 02/25/18 21:05 Blood - Peripheral Anaerobic Blood Culture - Preliminary No growth in 1 day 02/25/18 21:00 Blood - Peripheral Aerobic Blood Culture - Preliminary No growth in 1 day 02/25/18 21:00 Blood - Peripheral Anaerobic Blood Culture - Preliminary No growth in 1 day - Imaging Impressions Abdomen/Pelvis CT 02/25/18 11:51 CONCLUSION: 1. Cirrhosis and portal hypertension. 2. Cholelithiasis. Chest X-Ray 02/25/18 11:51 CONCLUSION: Negative examination. Assessment and Plan - Assessment (1) Acute GI bleeding Code(s): K92.2 - Gastrointestinal hemorrhage, unspecified Status: Acute - Plan 52-year-old female admitted secondary to hematemesis Patient reports no further episodes of hematemesis this morning. Hematemesis Coagulopathy secondary to liver disease upper GI bleeding Acute symptomatic anemia History of cirrhosis and portal hypertension History of esophageal varices EGD planned for today GI following Continue octreotide drip Continue PPI drip Rocephin has been provided prophylactically for SBP risks, this is continued Continue propranolol 2 units packed red blood cells transfused Follow CBC Alcohol dependence Continue CIWA protocol Continue vitamin supplementation Follow for DTs Continue dependence Patient counseled to quit DVT prophylaxis SCDs No anticoagulation due to active bleeding and coagulopathy
[2018-02-26] MEDS ORDERED: Sodium Chlor 0.9% Inj 500 ML IV.SIG SCH (12:00)
--- NOTE | 2018-02-26 12:11 | ECG ---
Date Performed: 02/26/2018 Time Performed: 10:53:49 PTAGE: 52 years EKG: Sinus rhythm NORMAL ECG PREVIOUS TRACING : 01/28/2017 23.28 Compared to previous tracing, heart rate has slowed, nonspe cific ST/T changes have resolved. DOCTOR: Anthony Cervantes Interpretating Date/Time 02/26/2018 12:10:05
--- NOTE | 2018-02-26 13:42 | GIPROC ---
[facility] [address] [facility]. [facility] [place], [id number] EGD PROCEDURE REPORT EXAM DATE: 02/26/2018 PATIENT NAME: Mila Meza MR #: [id number] BIRTHDATE: 1965 ATTENDING: Brea Thompson MD ORDER #: [id number] ADJUNCT TEACHER: Melissa Hyman and Ember Connolly STATUS: inpatient INDICATIONS: The patient is a 52 yr old female here for an EGD due to epigastric abdominal pain PROCEDURE PERFORMED: EGD w/ biopsy MEDICATIONS: None and Per Anesthesia. TOPICAL ANESTHETIC: none CONSENT: The patient understands the risks and benefits of the procedure and understands that these risks include, but are not limited to: sedation, allergic reaction, infection, perforation and/or bleeding. Alternative means of evaluation and treatment include, among others: physical exam, x-rays, and/or surgical intervention. The patient elects to proceed with this endoscopic procedure. medical equipment was checked for proper function. Hand hygiene and appropriate measures for infection prevention was taken. After the risks, benefits and alternatives of the procedure were thoroughly explained, Informed consent was verified, confirmed and timeout was successfully executed by the treatment team. The patient was anesthetized with topical anesthesia and the Pentax EG-[id number] endoscope was introduced through the mouth and advanced to the second portion of the duodenum. Retroflexion was performed and was normal The gastroscope was then slowly withdrawn and removed. ESOPHAGUS: The mucosa of the esophagus appeared normal. STOMACH: Multiple small irregular shaped erosions were found in the gastric antrum. Multiple biopsies was performed using cold forceps. Sample sent for histology. DUODENUM: The duodenal mucosa appeared normal in the 2nd part of the duodenum, duodenal bulb, and 3rd part duodenum. ADVERSE EVENTS: There were no complications. IMPRESSIONS: 1. The esophagus appeared normal 2. Multiple small erosions were found in the gastric antrum; multiple biopsies was performed 3. Normal duodenal mucosa in the 2nd part of the duodenum, duodenal bulb, and 3rd part duodenum 4. Retroflexion was performed and was normal RECOMMENDATIONS: 1. Await biopsy results. Biopsy results will not be ready for 7-10 days. If you don't hear from us in two weeks, call our office for biopsy results. 2. Continue PPI PATIENT CONDITION: stable DISPOSITION: Observation REPEAT EXAM: NONE Brea Thompson MD eSigned: Brea Thompson MD 02/26/2018 1:41 PM cc: PATIENT NAME: Mila Meza MR#: [id number]
[2018-02-26] MEDS: Morphine Inj 4 MG/ML Vial IV.PUSH PRN ×3 (14:15→22:15)
[2018-02-26] MEDS: Pantoprazole Inj 80 MG in Sodium Chlor 0.9% Inj 100 ML IV.CONT SCH (20:57)
[2018-02-27] MEDS: LORazepam 1 MG Tablet PO PRN ×2 (00:25→06:22)
[2018-02-27] MEDS: Morphine Inj 4 MG/ML Vial IV.PUSH PRN ×3 (03:00→10:47)
[2018-02-27] MEDS: Octreotide Inj 500 MCG in Sodium Chlor 0.9% Inj 500 ML IV.CONT SCH (03:02)
[2018-02-27] MEDS: Pantoprazole Inj 80 MG in Sodium Chlor 0.9% Inj 100 ML IV.CONT SCH (06:41)
[2018-02-27 10:10] LABS: Baso % (Auto) 0.7 % (0.0-2.0); Eos # (Auto) 0.2 th/mm3 (0.0-0.4); Eos % (Auto) 4.4 % (0.0-4.0); Hematocrit 28.8 % (35.0-46.0); Hemoglobin 9.4 gm/dL (11.6-15.3); Lymph # (Auto) 1.4 th/mm3 (1.0-4.8); Lymph % (Auto) 31.3 % (9.0-44.0); Mean Corpuscular HGB Conc 32.7 % (32.0-36.0); Mean Corpuscular Hemoglobin 26.9 pg (27.0-34.0); Mean Corpuscular Volume 82.3 fL (80.0-100.0); Mean Platelet Volume 8.5 fL (7.0-11.0); Mono # (Auto) 0.3 th/mm3 (0.0-0.9); Mono % (Auto) 7.9 % (0.0-8.0); Neut # (Auto) 2.4 th/mm3 (1.8-7.7); Neut % (Auto) 55.7 % (16.0-70.0); Platelet Count 131 th/mm3 (150-450); Red Cell Distribution Width 19.6 % (11.6-17.2); White Blood Count 4.4 th/mm3 (4.0-11.0)
[2018-02-27 10:43] LABS: Anion Gap 9 meq/L (5-15)
[2018-02-27 10:51] LABS: Alanine Aminotransferase 22 U/L (10-53); Albumin 2.6 g/dL (3.4-5.0); Alkaline Phosphatase 92 U/L (45-117); Aspartate Aminotransferase 60 U/L (15-37); Blood Urea Nitrogen 5 mg/dL (7-18); Calcium 7.3 mg/dL (8.5-10.1); Carbon Dioxide 26.8 meq/L (21.0-32.0); Chloride 109 meq/L (98-107); Glomerular Filtration Rate Greater Than 89 mL/min (>89); Glucose,Random 115 mg/dL (74-106); Potassium 3.6 meq/L (3.5-5.1); Sodium 145 meq/L (136-145); Total Protein 5.9 g/dL (6.4-8.2)
[2018-02-27] MEDS ORDERED: Polyethylene Glycol 3350 17 GM Packet PO SCH (11:15)
--- NOTE | 2018-02-27 12:03 | P.PN ---
Subjective Interval history: Patient s/p EGD OK to discharge home today if ok with GI. RN Kala was present in room. no more hematemesis. Physical Exam Vital signs: Vital Signs 02/26/18 13:33 02/26/18 16:00 02/26/18 20:00 Temperature 98.2 F 97.0 F L 97.9 F Pulse Rate 85 74 80 Respiratory Rate 17 18 Blood Pressure 109/64 118/76 101/60 Pulse Oximetry 100 100 97 02/27/18 00:00 02/27/18 04:00 02/27/18 08:00 Temperature 98.1 F 98.1 F 97.3 F L Pulse Rate 84 87 87 Respiratory Rate 18 18 17 Blood Pressure 128/76 118/70 105/68 Pulse Oximetry 93 L 97 94 L 02/27/18 09:00 Temperature Pulse Rate 87 Respiratory Rate Blood Pressure Pulse Oximetry Intake & Output 02/26/18 02/27/18 02/27/18 18:59 06:59 18:59 Intake Total 2401.0 / 2401.0 100 / 100 Balance 2401.0 / 2401.0 100 / 100 Intake: IV 1201.0 / 1201.0 100 / 100 SandoSTATIN Inj 500 MCG In NS 1001.0 / 1001.0 Inj 500 ML @ 50 MCG/HR 50.05 mls/hr IV.CONT .Q10H [facility] Rx#: [id number] Protonix Inj 80 MG In NS Inj 100 / 100 100 / 100 100 ML @ 10 mls/hr IV.CONT CONT [facility] Rx#:[id number] Rocephin Inj 1,000 MG In NS Inj 100 / 100 100 ML @ 200 mls/hr IV.SIG Q24H [facility] Rx#:[id number] Oral 1000 / 1000 Anesthesia Amount 200 / 200 Other: # Voids 4 2 Date of Last Bowel Movement 02/26/18 02/26/18 # Bowel Movements 2 - Constitutional no acute distress - Routine HEENT Exam Head: Present: normocephalic, atraumatic Eye: Present: EOMI, PERRL ENT: Present: mucous membranes moist - Routine Neck Exam Present: supple, full ROM - Routine Respiratory Exam Present: CTA bilaterally - Routine Cardiovascular Exam Present: RRR, S1, S2 - Routine Abdominal Exam Present: soft, normoactive bowel sounds - Routine Skin Exam Present: intact, dry, warm - Routine Neurological Exam Present: alert, oriented X3, CN II-XII intact, normal speech - Detailed Neurological Exam: Coma Scale Eye Opening: Spontaneous Verbal Response: Oriented Motor Response: Obey commands Raul Coma Scale Total: 15 - Routine Psychiatric Exam Present: normal affect Results - Labs CBC & Chem 7: 02/27/18 09:08 02/27/18 09:08 Laboratory Results - last 24 hr 02/27/18 02/27/18 09:08 09:08 WBC 4.4 RBC 3.50 L Hgb 9.4 L Hct 28.8 L MCV 82.3 MCH 26.9 L MCHC 32.7 RDW 19.6 H Plt Count 131 L MPV 8.5 Neut % (Auto) 55.7 Lymph % (Auto) 31.3 [place] % (Auto) 7.9 Eos % (Auto) 4.4 H Baso % (Auto) 0.7 Neut # (Auto) 2.4 Lymph # (Auto) 1.4 [place] # (Auto) 0.3 Eos # (Auto) 0.2 Baso # (Auto) 0.0 WBC Differential . Differential Comment Auto diff final Sodium 145 Potassium 3.6 Chloride 109 H Carbon Dioxide 26.8 Anion Gap 9 BUN 5 L Creatinine 0.58 Estimated GFR Greater than 89 Random Glucose 115 H Calcium 7.3 L* Prot Corrected Calcium 7.9 L Total Bilirubin 0.7 AST 60 H ALT 22 Alkaline Phosphatase 92 Total Protein 5.9 L Albumin 2.6 L Microbiology 02/25/18 21:05 Blood - Peripheral Aerobic Blood Culture - Preliminary No growth in 2 days 02/25/18 21:05 Blood - Peripheral Anaerobic Blood Culture - Preliminary No growth in 2 days 02/25/18 21:00 Blood - Peripheral Aerobic Blood Culture - Preliminary No growth in 2 days 02/25/18 21:00 Blood - Peripheral Anaerobic Blood Culture - Preliminary No growth in 2 days Assessment and Plan - Plan Assessment and Plan (1) Acute GI bleeding 52-year-old female admitted secondary to hematemesis Patient reports no further episodes of hematemesis this morning. Hematemesis Coagulopathy secondary to liver disease upper GI bleeding Acute symptomatic anemia History of cirrhosis and portal hypertension History of esophageal varices S/P EGD noted. GI following Continue PPI Rocephin has been provided prophylactically for SBP risks, this is continued Continue propranolol 2 units packed red blood cells transfused Follow CBC Alcohol dependence Continue CIWA protocol Continue vitamin supplementation Follow for DTs Continue dependence Patient counseled to quit DVT prophylaxis SCDs No anticoagulation due to active bleeding and coagulopathy ok to discharge home today if ok with GI. F/U with PCP and GI 1 Week.
--- NOTE | 2018-02-27 13:24 | P.PNGI ---
Subjective Interval history: Currently patient's resting in the bed no acute distress, does still note some occasional gastric discomfort but is currently hungry no active nausea or vomiting <Itzel Valdez - Last Filed: 02/27/18 13:17> Physical Exam Vital signs: Vital Signs 02/26/18 13:33 02/26/18 16:00 02/26/18 20:00 Temperature 98.2 F 97.0 F L 97.9 F Pulse Rate 85 74 80 Respiratory Rate 17 18 Blood Pressure 109/64 118/76 101/60 Pulse Oximetry 100 100 97 02/27/18 00:00 02/27/18 04:00 02/27/18 08:00 Temperature 98.1 F 98.1 F 97.3 F L Pulse Rate 84 87 87 Respiratory Rate 18 18 17 Blood Pressure 128/76 118/70 105/68 Pulse Oximetry 93 L 97 94 L 02/27/18 09:00 Temperature Pulse Rate 87 Respiratory Rate Blood Pressure Pulse Oximetry Intake & Output 02/26/18 02/27/18 02/27/18 18:59 06:59 18:59 Intake Total 2401.0 / 2401.0 100 / 100 Balance 2401.0 / 2401.0 100 / 100 Intake: IV 1201.0 / 1201.0 100 / 100 SandoSTATIN Inj 500 MCG In NS 1001.0 / 1001.0 Inj 500 ML @ 50 MCG/HR 50.05 mls/hr IV.CONT .Q10H [facility] Rx#: [id number] Protonix Inj 80 MG In NS Inj 100 / 100 100 / 100 100 ML @ 10 mls/hr IV.CONT CONT [facility] Rx#:[id number] Rocephin Inj 1,000 MG In NS Inj 100 / 100 100 ML @ 200 mls/hr IV.SIG Q24H [facility] Rx#:[id number] Oral 1000 / 1000 Anesthesia Amount 200 / 200 Other: # Voids 4 2 Date of Last Bowel Movement 02/26/18 02/26/18 # Bowel Movements 2 - Constitutional mild distress - Routine HEENT Exam Head: Present: normocephalic ENT: Present: mucous membranes moist - Routine Respiratory Exam Present: accessory muscle use (Even, unlabored) - Routine Cardiovascular Exam Present: S1, S2 - Routine Abdominal Exam Present: soft (Active bowel sounds no obvious distention) - Routine Skin Exam Present: pallor <Itzel Valdez - Last Filed: 02/27/18 13:17> Vital signs: Vital Signs 02/26/18 16:00 02/26/18 20:00 02/27/18 00:00 Temperature 97.0 F L 97.9 F 98.1 F Pulse Rate 74 80 84 Respiratory Rate 17 18 18 Blood Pressure 118/76 101/60 128/76 Pulse Oximetry 100 97 93 L 02/27/18 04:00 02/27/18 08:00 02/27/18 09:00 Temperature 98.1 F 97.3 F L Pulse Rate 87 87 87 Respiratory Rate 18 17 Blood Pressure 118/70 105/68 Pulse Oximetry 97 94 L Intake & Output 02/26/18 02/27/18 02/27/18 18:59 06:59 18:59 Intake Total 2401.0 / 2401.0 100 / 100 Balance 2401.0 / 2401.0 100 / 100 Intake: IV 1201.0 / 1201.0 100 / 100 SandoSTATIN Inj 500 MCG In NS 1001.0 / 1001.0 Inj 500 ML @ 50 MCG/HR 50.05 mls/hr IV.CONT .Q10H [facility] Rx#: [id number] Protonix Inj 80 MG In NS Inj 100 / 100 100 / 100 100 ML @ 10 mls/hr IV.CONT CONT [facility] Rx#:[id number] Rocephin Inj 1,000 MG In NS Inj 100 / 100 100 ML @ 200 mls/hr IV.SIG Q24H [facility] Rx#:[id number] Oral 1000 / 1000 Anesthesia Amount 200 / 200 Other: # Voids 4 2 Date of Last Bowel Movement 02/26/18 02/26/18 # Bowel Movements 2 <Brea Thompson - Last Filed: 02/27/18 13:36> Results - Labs CBC & Chem 7: 02/27/18 09:08 02/27/18 09:08 Laboratory Results - last 24 hr 02/27/18 02/27/18 09:08 09:08 WBC 4.4 RBC 3.50 L Hgb 9.4 L Hct 28.8 L MCV 82.3 MCH 26.9 L MCHC 32.7 RDW 19.6 H Plt Count 131 L MPV 8.5 Neut % (Auto) 55.7 Lymph % (Auto) 31.3 [place] % (Auto) 7.9 Eos % (Auto) 4.4 H Baso % (Auto) 0.7 Neut # (Auto) 2.4 Lymph # (Auto) 1.4 [place] # (Auto) 0.3 Eos # (Auto) 0.2 Baso # (Auto) 0.0 WBC Differential . Differential Comment Auto diff final Sodium 145 Potassium 3.6 Chloride 109 H Carbon Dioxide 26.8 Anion Gap 9 BUN 5 L Creatinine 0.58 Estimated GFR Greater than 89 Random Glucose 115 H Calcium 7.3 L* Prot Corrected Calcium 7.9 L Total Bilirubin 0.7 AST 60 H ALT 22 Alkaline Phosphatase 92 Total Protein 5.9 L Albumin 2.6 L Microbiology 02/25/18 21:05 Blood - Peripheral Aerobic Blood Culture - Preliminary No growth in 2 days 02/25/18 21:05 Blood - Peripheral Anaerobic Blood Culture - Preliminary No growth in 2 days 02/25/18 21:00 Blood - Peripheral Aerobic Blood Culture - Preliminary No growth in 2 days 02/25/18 21:00 Blood - Peripheral Anaerobic Blood Culture - Preliminary No growth in 2 days <Itzel Valdez - Last Filed: 02/27/18 13:17> - Labs CBC & Chem 7: 02/27/18 09:08 02/27/18 09:08 Laboratory Results - last 24 hr 02/27/18 02/27/18 09:08 09:08 WBC 4.4 RBC 3.50 L Hgb 9.4 L Hct 28.8 L MCV 82.3 MCH 26.9 L MCHC 32.7 RDW 19.6 H Plt Count 131 L MPV 8.5 Neut % (Auto) 55.7 Lymph % (Auto) 31.3 [place] % (Auto) 7.9 Eos % (Auto) 4.4 H Baso % (Auto) 0.7 Neut # (Auto) 2.4 Lymph # (Auto) 1.4 [place] # (Auto) 0.3 Eos # (Auto) 0.2 Baso # (Auto) 0.0 WBC Differential . Differential Comment Auto diff final Sodium 145 Potassium 3.6 Chloride 109 H Carbon Dioxide 26.8 Anion Gap 9 BUN 5 L Creatinine 0.58 Estimated GFR Greater than 89 Random Glucose 115 H Calcium 7.3 L* Prot Corrected Calcium 7.9 L Total Bilirubin 0.7 AST 60 H ALT 22 Alkaline Phosphatase 92 Total Protein 5.9 L Albumin 2.6 L Microbiology 02/25/18 21:05 Blood - Peripheral Aerobic Blood Culture - Preliminary No growth in 2 days 02/25/18 21:05 Blood - Peripheral Anaerobic Blood Culture - Preliminary No growth in 2 days 02/25/18 21:00 Blood - Peripheral Aerobic Blood Culture - Preliminary No growth in 2 days 02/25/18 21:00 Blood - Peripheral Anaerobic Blood Culture - Preliminary No growth in 2 days <Brea Thompson - Last Filed: 02/27/18 13:36> Assessment and Plan (1) Abdominal pain Status: Acute Code(s): R10.9 - Unspecified abdominal pain (2) Portal hypertension Status: Acute Code(s): K76.6 - Portal hypertension (3) Acute GI bleeding Status: Acute Code(s): K92.2 - Gastrointestinal hemorrhage, unspecified (4) Anemia Status: Acute Code(s): D64.9 - Anemia, unspecified (5) History of esophageal varices with bleeding Status: Acute Code(s): Z87.19 - Personal history of other diseases of the digestive system (6) History of esophageal varices with bleeding Status: Acute Code(s): Z87.19 - Personal history of other diseases of the digestive system (7) Alcoholic cirrhosis of liver Status: Acute Code(s): K70.30 - Alcoholic cirrhosis of liver without ascites (8) Alcoholic cirrhosis of liver Status: Acute Code(s): K70.30 - Alcoholic cirrhosis of liver without ascites - Plan 52-year-old female entered the hospital on 02/25/2018 with coffee-ground emesis as well as some raspberry colored emesis and melena stools 2-3 large dark uncontrolled, as well as generalized abdominal pain for the past 36 hours. Currently being managed with octreotide drip and Protonix drip. Melena stools, patient has a history of alcoholic cirrhosis, portal hypertension and history of esophageal varices. This could be related to GI bleeding Abdominal pain uncontrolled, probably related to GI bleed. Patient also has symptoms of uncontrolled belching and bloating CT scan shows cholelithiasis, portal hypertension, and cirrhosis. Patient was here recently in August status post EGD colonoscopy but never had any GI follow- up. Patient states esophageal banding in the past within the past year approximately. Terms of constipation. Hyperammonemia, probable secondary to her liver cirrhosis, currently has some slurred speech but is able to carry on simple conversation about her symptoms. Current labs show hemoglobin 9.4, WBC count 12.7 leukocytosis unspecified, PT/ INR 1.3, Liver cirrhosis with bilirubin 2.3, elevated AST 52, and ALT 25. Patient continues to drink alcohol but states a decreased amount with only one drink in the past 3 days. 02/27/2018, patient is resting in the bed still has some mild drowsy speech but is feeling much better with less abdominal pain.. Discussed EGD findings of erosive gastritis and the need for her GI medications. Transition patient to p.o. Protonix today and DC IV PPI and octreotide meds. Discussed bowel regimen since patient does have a history of some constipation and ordered MiraLAX daily. Will check tolerance for diet, but does appear stable from a GI perspective. If patient discharges she needs to follow-up in the GI office for any biopsies and follow-up with her symptoms. No obvious bleeding current hemoglobin stable at 9.4 Plan Diet soft, check her tolerance, hydrate, no fried or spicy foods Monitor labs with special attention hemoglobin and transfuse as needed P.o. PPI initiated Supportive care Patient was seen per myself and Dr. Thompson, note was written on his behalf <Itzel Valdez - Last Filed: 02/27/18 13:17> (1) Abdominal pain Status: Acute Code(s): R10.9 - Unspecified abdominal pain (2) Portal hypertension Status: Acute Code(s): K76.6 - Portal hypertension (3) Acute GI bleeding Status: Acute Code(s): K92.2 - Gastrointestinal hemorrhage, unspecified (4) Anemia Status: Acute Code(s): D64.9 - Anemia, unspecified (5) History of esophageal varices with bleeding Status: Acute Code(s): Z87.19 - Personal history of other diseases of the digestive system (6) History of esophageal varices with bleeding Status: Acute Code(s): Z87.19 - Personal history of other diseases of the digestive system (7) Alcoholic cirrhosis of liver Status: Acute Code(s): K70.30 - Alcoholic cirrhosis of liver without ascites (8) Alcoholic cirrhosis of liver Status: Acute Code(s): K70.30 - Alcoholic cirrhosis of liver without ascites - Attending Attestation As above, discussed findings and the need for outpatient follow up . <Brea Thompson - Last Filed: 02/27/18 13:36> <Itzel Valdez M - Last Filed: 02/27/18 13:17> (4) Anemia Qualifiers: Anemia type: unspecified type Qualified Code(s): D64.9 - Anemia, unspecified <Brea Thompson A - Last Filed: 02/27/18 13:36> (4) Anemia Qualifiers: Anemia type: unspecified type Qualified Code(s): D64.9 - Anemia, unspecified
[2018-02-27 14:19] VITALS: BP 114/65; PULSE 95; RESP 16; TEMP 98.3; O2SAT 98
== END 2018-02-27 14:51 | disposition home or self-care (01) ==
LOC: NEPE 11:41 → NEDA 13:36 → N07 14:56
PROVIDERS: ADMIT Family Medicine; ATTEND Family Medicine
PROC: PANENDO (2018-02-26 13:11)